=== PATIENT | female | born 1960 | race Caucasian/White ===

== ENCOUNTER 2020-06-17 10:55 | Outpatient (CLI) | payer OTHER ==
[2020-06-17 11:22] LABS: CALCIUM 9.6 mg/dL (8.5-10.3); CREATININE 0.9 mg/dL (0.4-1.0)
== END 2020-06-17 10:56 | disposition home or self-care (01) ==
LOC: LAB 10:55
PROVIDERS: ATTEND Obstetrics & Gynecology
DX: Z01.812 Encounter for preprocedural laboratory examination (principal); N95.0 Postmenopausal bleeding; Z20.828 Contact with and (suspected) exposure to other viral communicable diseases
CPT/HCPCS: 36415; 80048

== ENCOUNTER 2020-07-01 06:08 | Day surgery (SDC) | payer OTHER ==
[2020-07-01] MEDS ORDERED: LACTATED RINGERS 1,000 ML IV ONE ×2 (06:15→08:44)
--- NOTE | 2020-07-01 07:01 | ANESTHESIA ---
Pre-Anesthesia VS, & Labs - Diagnosis Abnormanl Uterine Bleeding - Procedure Hysteroscopy and D&C Vital Signs: Temp Pulse Resp BP Pulse Ox 36.6 C 102 H 20 131/86 H 98 07/01/20 06:23 07/01/20 06:23 07/01/20 06:23 07/01/20 06:23 07/01/20 06:23 Height: 5 ft 2 in Weight (kg): 72.8 kg Body Mass Index: 29.3 BMI Classification: Overweight - NPO >8 hours (2029) Last Fluid Intake: 2029 - Is Patient ?: No - Lab Results Current Lab Results: Laboratory Tests 07/01/20 06:30: POC Whole Bld Glucose 141 H Home Medications and Allergies Aspirin [Aspir-Low] 81 mg DAILY 04/24/16 Spironolactone 2 tab BID 04/24/16 lisinopriL [Lisinopril] 10 mg DAILY 04/24/16 metFORMIN [Glucophage] 500 mg BID 04/24/16 Atorvastatin [Lipitor] 40 mg 06/17/20 Insulin Glargine [Lantus Solostar] 28 unit DAILY 06/17/20 Allergies/Adverse Reactions: Allergies Allergy/AdvReac Type Severity Reaction Status Date / Time Tetanus Vaccines and Toxoid Allergy Unknown Verified 06/17/20 11:13 Anes History & Medical History - Medical History Cardiovascular: reports: Hypertension Musculoskeletal: reports: Fibromyalgia Endocrine/Autoimmune: reports: Type 2 diabetes Smoking Status: Never smoker - Surgical History General: Cholecystectomy Eyes Ears Nose Throat (EENT): Tonsil/Adenoidectomy Gynecologic: Tubal ligation Orthopedic: Knee replacement Exam General: Alert, Oriented x3, Cooperative, No acute distress Dental: WNL Mouth Openin Fingerbreadth Neck Mobility: Normal Mallampati classification: II Thyromental Distance: 4-6 cm Respiratory: Lungs clear, Normal breath sounds, No respiratory distress, No accessory muscle use Cardiovascular: Regular rate, Normal S1, Normal S2, No murmurs Abdomen: Normal bowel sounds, Soft, No tenderness, No hepatospenomegaly, No masses Extremities: No clubbing, No cyanosis, No edema, Normal pulses, No tenderness/swelling Neurological: Normal gait, Normal speech, Strength at 5/5 X4 ext, Normal tone, Sensation intact, Cranial nerves 3-12 NL, Reflexes 2+ Mental/Cognitive Status: Alert/Oriented X3, Normal for patient Cognitive Status: Within normal limits Plan Anesthesia Type: General Consent for Procedure(s) Verified and Reviewed: Yes Code Status: Attempt Resuscitation ASA classification: 2-Mild systemic disease Is this case an emergency?: No
[2020-07-01] MEDS ORDERED: PROPOFOL 200 MG/20 ML VIAL IVP ONE (07:09)
[2020-07-01] MEDS ORDERED: ONDANSETRON 4 MG/2 ML VIAL IVP ONE (07:09)
[2020-07-01] MEDS ORDERED: ePHEDrine 50 MG/ML VIAL IVP ONE (07:09)
[2020-07-01] MEDS ORDERED: fentaNYL 100 MCG/2 ML VIAL IVP ONE (07:09)
[2020-07-01] MEDS ORDERED: MIDAZOLAM 2 MG/2 ML VIAL IVP ONE (07:09)
[2020-07-01] MEDS ORDERED: DEXAMETHASONE 4 MG/ML VIAL IVP ONE (07:09)
[2020-07-01] MEDS ORDERED: SILVER NITRATE APPLICATOR TOP ONE (07:32)
[2020-07-01] MEDS ORDERED: LIDOCAINE 1%-EPI 1:100000 20 ML MDV ONE (07:32)
[2020-07-01] MEDS ORDERED: ONDANSETRON 4 MG/2 ML VIAL IVP PRN (07:56)
[2020-07-01] MEDS ORDERED: HYDROmorphone 0.5 MG/0.5 ML SYRINGE IVP PRN (07:56)
[2020-07-01] MEDS ORDERED: MORPHINE 2 MG/ML CARPUJECT IVP PRN (07:56)
[2020-07-01] MEDS ORDERED: METOCLOPRAMIDE 10 MG/2 ML VIAL IVP PRN (07:56)
[2020-07-01] MEDS ORDERED: ePHEDrine 50 MG/ML VIAL IVP PRN (07:56)
[2020-07-01] MEDS ORDERED: ACETAMINOPHEN 1,000 MG/100 ML 100 ML IV ONE ×3 (07:56→10:02)
[2020-07-01] MEDS ORDERED: fentaNYL 100 MCG/2 ML VIAL IVP PRN (07:56)
[2020-07-01] MEDS ORDERED: NALOXONE 0.4 MG/ML VIAL IVP PRN (07:56)
[2020-07-01] MEDS ORDERED: ATROPINE ABBOJECT 1 MG/10 ML SYRINGE IVP PRN (07:56)
[2020-07-01] MEDS ORDERED: LACTATED RINGERS 1,000 ML IV SCH (08:00)
[2020-07-01] MEDS ORDERED: LIDOCAINE 1%-EPI 1:100000 20 ML MDV SUBQ ONE (08:00)
--- NOTE | 2020-07-01 08:53 | OPERATIVE REPORT ---
Operative Report - General Planned Procedure: Diagnostic Hysteroscopy, dilation and curettage Pre-Op Diagnosis: Postmenopausal bleeding Procedure Performed: Diagnostic hysteroscopy, dilation and curettage Post Op Diagnosis: Postmenopausal bleeding, endocervical polyp, uterine septum - Procedure Note Primary Surgeon: Cherelle Secondary Surgeon: Krunal Anesthesia Provider: Otis Anesthesia Technique: General LMA, Local Pathology: 1. Endocervical polyp 2. Endometrial curettings IV Fluids (mL): 1,000 Estimated Blood Loss (mL): 3 Urine Output (mL): 200 Indications: 60 year old female post-endometrial ablation and postmenopausal, with postmenopausal bleeding. 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 She was counseled and consented for diagnostic hysteroscopy and dilation and curettage. Findings: Exam under anesthesia: Uterus anteverted with normal size, shape and contour. No adnexal masses. Operative: Endocervical polyp approximately 1cm, removed. Uterus sounded to 6cm. Hysteroscopy with uterine septum, at 1000 previously sounded, and 0400, sounded to 8cm. Thickened and pale endometrium from both sides. Curettage performed, repeat hysteroscopy with noted curettings only on the superior cavity. Myosure used for inferior cavity uterine sampling. Final curettage performed on inferior cavity. Complications: None - Other Other Information/Narrative: Operative Procedure: The patient was counseled and consented for the procedure. She was taken to the operating room where general LMA anesthesia was obtained without complication. A surgical time-out was performed. The patient was prepped and draped in the usual sterile fashion in yellow-fin stirrups. The bladder was drained with a straight catheter. A bivalve speculum was placed in the vagina. The cervical os was noted to have a 1cm endocervical polyp. The anterior lip of the cervix was grasped with a single toothed tenaculum. A local paracervical block using 1% lidocaine with epinephrine was placed at 2, 4, 8, and 10 o'clock positions of the cervix. The endocervical polyp was removed with ringed forceps and twisting off. The polyp was sent for pathology. The uterus was sounded to 6cm. The cervix was dilated to #5 Danielle dilator. The hysteroscope was inserted and noted uterine septum and erythema at 1000 cavity, and pale thickened tissue at 0400 cavity. The hysteroscopy was removed and the inferior cavity was sounded to 8cm. A medium sized curette was used to sample the uterus. The endometrial curettings were collected. The hysteroscope was inserted and noted 0400 uterine cavity was still pale and appeared untouched. Myosure was used to sample the inferior uterine cavity. The hysteroscope was removed and curettage performed on the inferior cavity. The curettings were collected. Final hysteroscopy showed appropriate abraded and erythematous endometrium from both superior and inferior uterine cavities. The tenaculum was removed from the cervix and the tenaculum sites were hemostatic with pressure. The speculum was removed from the vagina. All instruments were removed from the vagina. The patient tolerated the procedure well. She was awakened from anesthesia without complication and transferred to PACU in stable condition.
[2020-07-01] MEDS ORDERED: KETOROLAC 15 MG/ML VIAL IVP PRN (09:10)
[2020-07-01 09:35] VITALS: BP 118/67
--- NOTE | 2020-07-01 10:27 | ANESTHESIA POST OP EVALUATION ---
Anesthesia Post Eval - Post Anesthesia Eval Vitals: Last Vital Signs Temp 36.5 C 07/01/20 09:05 Pulse 86 07/01/20 09:34 Resp 16 07/01/20 09:34 BP 118/67 07/01/20 09:34 Pulse Ox 97 07/01/20 09:34 CV Function Including HR & BP: positive: Stable Pain Control: positive: Satisfactory (Had cramping. Added IV Ofirmev) Nausea & Vomiting: positive: Negative Mental Status: positive: Baseline Respiratory Status: Airway Patent Hydration Status: Satisfactory Anesthesia Complications: positive: None
== END 2020-07-01 06:09 | disposition home or self-care (01) ==
LOC: SDS 06:08
PROVIDERS: ATTEND Obstetrics & Gynecology
PROC: 0UDB7ZX Extraction of Endometrium, Via Natural or Artificial Opening, Diagnostic (ICD-10-PCS; 2020-07-01)
PROC: 0UJD8ZZ Inspection of Uterus and Cervix, Via Natural or Artificial Opening Endoscopic (ICD-10-PCS; 2020-07-01)
PROC: 0UBC7ZX Excision of Cervix, Via Natural or Artificial Opening, Diagnostic (ICD-10-PCS; principal; 2020-07-01 07:30)
DX: C54.1 Malignant neoplasm of endometrium (principal); N84.1 Polyp of cervix uteri; Q51.28 Other and unspecified doubling of uterus; Q51.3 Bicornate uterus; I10 Essential (primary) hypertension; E11.9 Type 2 diabetes mellitus without complications

== ENCOUNTER 2021-08-16 12:26 | Outpatient (CLI) | payer OTHER ==
[2021-08-16 13:36] VITALS: BP 127/83
--- NOTE | 2021-08-16 13:36 | SLEEP CARE CONSULTATION ---
Information from patient questionnaire entered by Rubina Wallace MA. I have reviewed and concur with the information entered by Rubina Wallace MA. This document represents the service I personally performed and the decisions made by , Janee Villalobos ARNP. History of Present Illness Service Date and Time: 08/16/2021 1226 Reason for Visit: New patient Chief Complaint: reports: Unrefreshed sleep (no always), Excessive daytime sleepiness, Fatigue Date of Onset: about a year Usual bedtime: 0001; anytime betw 10 PM to 2 AM Time it takes to fall asleep: 15 minutes Snores at night: No Observed to quit breathing while asleep: No Sleeps alone due to snoring: No Number of times waking at night: 1 Reasons for waking at night: reports: Pain, Bathroom, Other (leg cramps) Toss, Turn, or Twitch while sleeping: Yes Recalls having dreams: Yes Feels refreshed in the morning: No (50/50, sometimes refreshed) Morning headache: No Sleepy or fatigued during the day: Yes Ever fallen asleep while driving: No Takes day naps: Yes (daily for about 2 hours) Dreams during day naps: No Additional HPI information: I had the pleasure of seeing SMITH WAGNER today regarding the possibility of her having a sleep disorder. Her current complaints are excessive daytime sleepiness and fatigue. She states she has had four major surgeries in the last year. 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 She had a hysterectomy, bowel resection and appendectomy to remove cancer from her body. Since her surgeries she is sleeping more during the day. Normal activity like shopping is very fatiguing. She is taking naps a lot. Her kids and have told her she does not snore or have pauses in breathing while sleeping. She did not have any chemotherapy or radiation. It has been almost a year since her first surgery and she is still fatigued during the day and sleeping a lot. She wakes up a lot with a dry mouth and sometimes thinks she does snore. - Parasomnia Symptoms Ever been unable to move upon waking from sleep: Yes (occasional) Walks in sleep: No Talks in sleep: Yes Ever acted out dreams in sleep: No Ever felt weak in the knees when startled or emotional: Yes (has not fallen to ground) Bothered by creepy, crawly, restless sensations in legs: Yes (leg cramps; when she doesn't do normal walking) Problems with memory or concentration: No Subjective Initial Valliant Sleepiness Scale score: 14 (in 2020) Past Medical History Past Medical History: reports: Hypertension, Diabetes, Fibromyalgia, Other (cancer, uterus, appendix) Social History The patient's occupation is a [employer]. Patient is and lives in [place]. Have you smoked in the past 12 months: No Alcohol use: No Caffeine use: Yes Caffeine amount and frequency: 8 ounces soda daily Family History Family history of sleep disordered breathing: No Allergies and Home Medications Drug allergies reviewed: Yes (tetanus vaccines and toxiod) Home medication list reviewed: Yes Allergy and home medication list: Spironolactone 25 mg Metformin 500 mg Amitriptyline 75 mg Aspirin 81 mg Atorvastatin 40 mg Trulicity 0.75 mg, once a week Lisinopril 10 mg Lantus 30 units, nightly Omeprazole 20 mg Review of Systems Cardiovascular: reports: high blood pressure Neurological: reports: headaches Ear/Nose/Throat: reports: dry mouth/throat, tonsillectomy, wisdom teeth removed Endocrine: reports: sluggishness, excessive thirst Physical Exam Vital signs obtained and entered by: KIERRA Woods Blood Pressure: 127/83 (left) Cuff size: wrist Heart Rate: 100 (notified the provider of elevation in HR) O2 Saturation: 97 (with mask) Height: 5 ft 2 in Weight: 170 lb Weight change since last visit: Pt. states she is trying to loose weight Body Mass Index: 31.1 BMI Classification: Obese Mouth and throat: narrow oropharynx Soft palate: long Hard palate: normal Uvula: normal Uvula visualization: 50% Mallampati Class II Tongue: enlarged in size with teeth montero on lateral edges Tonsils: absent bilaterally (taken out but grew back) Neck: normal w/o lymphadenopathy or thyromegaly Heart: regular rate and rhythm Lungs: clear bilaterally Impression and Plan 1. Suspected Obstructive Sleep Apnea-Hypopnea Syndrome, as suggested by a history of unrefreshed sleep and excessive daytime sleepiness. She has a history of hypertension and diabetes. I recommend proceeding to polysomnography to confirm the diagnosis and to assess severity. If the patient has significant sleep disordered breathing, a manual CPAP titration study will also be performed to find the optimal treatment pressure. I informed the patient of what the sleep studies involve and after some discussion, obtained agreement to proceed. The pathophysiology of obstructive sleep apnea-hypopnea syndrome was discussed with the patient and health risks of cardiovascular and cerebrovascular disease if not treated. Risks of drowsy driving discussed in detail and patient advised to avoid long distance driving and to pulley maintainer at the first sign of drowsiness. Patient agreed to plan. * Schedule polysomnography +- manual CPAP titration study and return in 1-2 weeks after the study to discuss result and initiate therapy. * Avoid long distance driving or driving when feeling sleepy. * Avoid alcohol, sedative and muscle relaxant around bedtime. * Attempt to lose weight. * Review instructions provided by trained office staff on how to prepare for the sleep study. * Return for follow-up after sleep study completed. Counseling Topics: Weight loss health impact Visit Type: In Office Time Spent with Patient (minutes): 35 Provider Statement: I spent 100% of the Face to Face Visit with the patient with greater than 50% spent counseling the patient and coordination of care.
== END 2021-08-16 12:27 | disposition home or self-care (01) ==
LOC: SC 12:26
PROVIDERS: ATTEND Nurse Practitioner Family
DX: G47.8 Other sleep disorders (principal); G47.10 Hypersomnia, unspecified; E66.9 Obesity, unspecified; Z68.31 Body mass index [BMI] 31.0-31.9, adult
CPT/HCPCS: 99203; 99212

== ENCOUNTER 2022-11-01 16:01 | Outpatient (CLI) | payer OTHER | END 2022-11-01 16:02 | disposition critical access hospital (66) | LOC: EMS 16:01 | DX: R11.0 Nausea (principal); R42 Dizziness and giddiness; R06.02 Shortness of breath; R07.9 Chest pain, unspecified; E11.65 Type 2 diabetes mellitus with hyperglycemia; R00.0 Tachycardia, unspecified | CPT/HCPCS: A0425; A0427 ==

== ENCOUNTER 2022-11-01 16:22 | Emergency (ER) | payer OTHER ==
--- OUTSIDE RECORDS SUMMARY | 2022-11-01 16:47 | EXTERNAL MEDICAL SUMMARY RPT | Continuity of Care Document ---
:1960 Author Organization [facility] Address [address] [place] [address] Phone Care Team Providers Name Role Phone Unavailable Unavailable Unavailable Jm Bean Unavailable Unavailable Allergies and Intolerances date description facility type (no date) No Known Drug Allergies [facility] ([facility]) Encounters No information. Functional Status No information. Immunizations No information. Medications No information. Problems date description facility 2022-08-30 10:37 Malignant neoplasm of appendix [facility] 2022-08-30 10:37 Malignant neoplasm of endometrium [facility] 2022-08-30 10:37 Type 2 diabetes mellitus without compli cations [facility] 2022-08-30 10:37 Encounter for follow-up examination [facility] completed treatment for malignant [place] 2022-08-30 10:37 Personal history of other malignant rachael [facility] 2022-08-30 10:37 Personal history of malignant neoplasm of other [facility] [place] 2022-08-30 11:28 Malignant neoplasm of appendix [facility] 2022-08-30 11:28 Malignant neoplasm of endometrium [facility] 2022-08-30 11:28 Type 2 diabetes mellitus without compli cations [facility] 2022-08-30 11:28 Encounter for follow-up examination [facility] completed treatment for malignant [place] 2022-08-30 11:28 Personal history of other malignant rachael plasm of [facility] 2022-08-30 11:28 Personal history of malignant neoplasm of other [facility] [place] 2022-10-23 00:00 Headache [facility] Procedures date description facility 2022-10-23 00:00 Computed tomography of head or brain wi [facility] contrast 2022-10-23 00:00 Computed tomography angiography of head and [facility] neck vessels with contrast Results/Labs test date author facility value unit interpret ation Result panel 1 (unknown) (no date) (unknown) [place] [facility] Result panel 2 (unknown) (no date[facility] ([facility]) Result panel 3 (unknown) (no date) ([facility] Result panel 4 (unknown) (no date) (unknown[facility] Result panel 5 (unknown) (no date) (unknown[facility] Result panel 6 (unknown) (no date) (unknown[facility] Result panel 7 (unknown) (no date) (unknown[facility] Result panel 8 (unknown) (no date) (unknown[facility] Result panel 9 (unknown) (no date) (unknown[facility] Result panel 10 (unknown) (no date) (unknown[facility] Result panel 11 (unknown) (no date) (unknown[facility] Result panel 12 (unknown) (no date) (unknown[facility] Result panel 13 (unknown) (no date) (unknown[facility] Result panel 14 (unknown) (no date) (unknown[facility] Result panel 15 (unknown) (no date) (unknown[facility] Result panel 16 (unknown) (no date) (unknown[facility] Result panel 17 (unknown) (no date) (unknown[facility] Result panel 18 (unknown) (no date) (unknown[facility] Result panel 19 (unknown) (no date) (unknown[facility] Result panel 20 (unknown) (no date) (unknown[facility] Result panel 21 (unknown) (no date) (unknown[facility] Result panel 22 (unknown) (no date) (unknown[facility] Result panel 23 (unknown) (no date) (unknown[facility] Result panel 24 (unknown) (no date) (unknown[facility]) Result panel 25 (unknown) (no date) (unknown[facility] Result panel 26 (unknown) (no date) (unknown[facility] Result panel 27 (unknown) (no date) (unknown[facility] Result panel 28 (unknown) (no date) (unknown[facility] Result panel 29 (unknown) (no date) (unknown[facility] Result panel 30 (unknown) (no date) (unknown[facility] Result panel 31 (unknown) (no date) (unknown[facility] Result panel 32 (unknown) (no date) (unknown[facility]) Result panel 33 (unknown) (no date) (unknown[facility] Result panel 34 (unknown) (no date) (unknown[facility]) Result panel 35 (unknown) (no date) (unknown[facility] Result panel 36 (unknown) (no date) (unknown[facility] Result panel 37 (unknown) (no date) (unknown[facility] Result panel 38 (unknown) (no date) (unknown[facility] Result panel 39 (unknown) (no date) (unknown[facility] Result panel 40 (unknown) (no date) (unknown[facility] Result panel 41 (unknown) (no date) (unknown[facility] Result panel 42 (unknown) (no date) (unknown[facility] Result panel 43 (unknown) (no date) (unknown[facility] Result panel 44 (unknown) (no date) (unknown[facility] Result panel 45 (unknown) (no date) (unknown[facility] Result panel 46 (unknown) (no date) (unknown[facility] Result panel 47 (unknown) (no date) (unknown[facility]) Result panel 48 (unknown) (no date) (unknown[facility] Result panel 49 (unknown) (no date) (unknown[facility] Result panel 50 (unknown) (no date) (unknown[facility] Result panel 51 (unknown) (no date) (unknown[facility] Result panel 52 (unknown) (no date) (unknown[facility] Result panel 53 (unknown) (no date) (unknown[facility] Result panel 54 (unknown) (no date) (unknown[facility]) Result panel 55 (unknown) (no date) (unknown[facility] Result panel 56 (unknown) (no date) (unknown[facility]) Result panel 57 (unknown) (no date) (unknown[facility] Result panel 58 (unknown) (no date) (unknown[facility]) Result panel 59 (unknown) (no date) (unknown[facility] Result panel 60 (unknown) (no date) (unknown[facility]) Result panel 61 (unknown) (no date) (unknown[facility] Result panel 62 (unknown) (no date) (unknown[facility]) Result panel 63 (unknown) (no date) (unknown[facility] Result panel 64 (unknown) (no date) (unknown[facility]) Result panel 65 (unknown) (no date) (unknown[facility] Result panel 66 (unknown) (no date) (unknown[facility]) Result panel 67 (unknown) (no date) (unknown[facility] Result panel 68 (unknown) (no date) (unknown[facility]) Result panel 69 (unknown) (no date) (unknown[facility] Result panel 70 (unknown) (no date) (unknown[facility]) Result panel 71 (unknown) (no date) (unknown[facility] Result panel 72 (unknown) (no date) (unknown[facility]) Result panel 73 (unknown) (no date) (unknown[facility] Result panel 74 (unknown) (no date) (unknown[facility]) Result panel 75 (unknown) (no date) (unknown[facility] Result panel 76 (unknown) (no date) (unknown[facility]) Result panel 77 (unknown) (no date) (unknown[facility] Result panel 78 (unknown) (no date) (unknown[facility] Result panel 79 (unknown) (no date) (unknown[facility]) Result panel 80 (unknown) (no date) (unknown[facility] Result panel 81 (unknown) (no date) (unknown[facility] Result panel 82 (unknown) (no date) (unknown[facility] Result panel 83 (unknown) (no date) (unknown[facility]) Result panel 84 (unknown) (no date) (unknown[facility] Result panel 85 (unknown) (no date) (unknown[facility] Result panel 86 (unknown) (no date) (unknown[facility] Result panel 87 (unknown) (no date) (unknown[facility] Result panel 88 (unknown) (no date) (unknown[facility] Result panel 89 (unknown) (no date) (unknown[facility]) Result panel 90 (unknown) (no date) (unknown[facility] Result panel 91 (unknown) (no date) (unknown[facility] Result panel 92 (unknown) (no date) (unknown[facility] Result panel 93 (unknown) (no date) (unknown[facility]) Result panel 94 (unknown) (no date) (unknown[facility] Result panel 95 (unknown) (no date) (unknown[facility]) Result panel 96 (unknown) (no date) (unknown[facility]) Result panel 97 (unknown) (no date) (unknown[facility]) Result panel 98 (unknown) (no date) (unknown[facility]) Result panel 99 (unknown) (no date) (unknown[facility] Result panel 100 (unknown) (no date) (unknown[facility] Result panel 101 (unknown) (no date) (unknown[facility] Result panel 102 (unknown) (no date) (unknown[facility] Result panel 103 (unknown) (no date) (unknown[facility] Result panel 104 (unknown) (no date) (unknown[facility] Result panel 105 (unknown) (no date) (unknown[facility]) Result panel 106 (unknown) (no date) (unknown[facility] Result panel 107 (unknown) (no date) (unknown[facility]) Result panel 108 (unknown) (no date) (unknown[facility] Result panel 109 (unknown) (no date) (unknown[facility]) Result panel 110 (unknown) (no date) (unknown[facility]) Result panel 111 (unknown) (no date) (unknown[facility]) Result panel 112 (unknown) (no date) (unknown[facility] Result panel 113 (unknown) (no date) (unknown[facility] Result panel 114 (unknown) (no date) (unknown[facility]) Result panel 115 (unknown) (no date) (unknown[facility] Result panel 116 (unknown) (no date) (unknown[facility] Result panel 117 (unknown) (no date) (unknown[facility]) Result panel 118 (unknown) (no date) (unknown[facility] Result panel 119 (unknown) (no date) (unknown[facility] Result panel 120 (unknown) (no date) (unknown[facility] Result panel 121 (unknown) (no date) (unknown[facility]) Result panel 122 (unknown) (no date) (unknown[facility] Result panel 123 (unknown) (no date) (unknown[facility]) Result panel 124 (unknown) (no date) (unknown[facility]) Result panel 125 (unknown) (no date) (unknown[facility] Result panel 126 (unknown) (no date) (unknown[facility]) Result panel 127 (unknown) (no date) (unknown[facility]) Result panel 128 (unknown) (no date) (unknown[facility] Result panel 129 (unknown) (no date) (unknown[facility]) Result panel 130 (unknown) (no date) (unknown[facility] Result panel 131 (unknown) (no date) (unknown[facility]) Result panel 132 (unknown) (no date) (unknown[facility] Result panel 133 (unknown) (no date) (unknown[facility]) Result panel 134 (unknown) (no date) (unknown[facility]) Result panel 135 (unknown) (no date) (unknown[facility] Result panel 136 (unknown) (no date) (unknown[facility]) Result panel 137 (unknown) (no date) (unknown[facility]) Result panel 138 (unknown) (no date) (unknown[facility]) Result panel 139 (unknown) (no date) (unknown[facility] Result panel 140 (unknown) (no date) (unknown[facility]) Result panel 141 (unknown) (no date) (unknown[facility]) Result panel 142 (unknown) (no date) (unknown[facility]) Result panel 143 (unknown) (no date) (unknown[facility] Result panel 144 (unknown) (no date) (unknown[facility] Result panel 145 (unknown) (no date) (unknown[facility]) Result panel 146 (unknown) (no date) (unknown[facility]) Result panel 147 (unknown) (no date) (unknown[facility] Result panel 148 (unknown) (no date) (unknown[facility]) Result panel 149 (unknown) (no date) (unknown[facility]) Result panel 150 (unknown) (no date) (unknown[facility]) Result panel 151 (unknown) (no date) (unknown[facility]) Result panel 152 (unknown) (no date) (unknown[facility] Result panel 153 (unknown) (no date) (unknown[facility]) Result panel 154 (unknown) (no date) (unknown[facility] Result panel 155 (unknown) (no date) (unknown[facility] Result panel 156 (unknown) (no date) (unknown[facility]) Result panel 157 (unknown) (no date) (unknown[facility]) Result panel 158 (unknown) (no date) (unknown[facility] Result panel 159 (unknown) (no date) (unknown[facility] Result panel 160 (unknown) (no date) (unknown[facility]) Result panel 161 (unknown) (no date) (unknown[facility]) Result panel 162 (unknown) (no date) (unknown[facility]) Result panel 163 (unknown) (no date) (unknown[facility] Result panel 164 (unknown) (no date) (unknown[facility]) Result panel 165 (unknown) (no date) (unknown[facility] Result panel 166 (unknown) (no date) (unknown[facility]) Result panel 167 (unknown) (no date) (unknown[facility] Result panel 168 (unknown) (no date) (unknown[facility] Result panel 169 (unknown) (no date) (unknown[facility]) Result panel 170 (unknown) (no date) (unknown[facility] Result panel 171 (unknown) (no date) (unknown[facility] Result panel 172 (unknown) (no date) (unknown[facility] Result panel 173 (unknown) (no date) (unknown[facility] Result panel 174 (unknown) (no date) (unknown[facility] Result panel 175 (unknown) (no date) (unknown[facility] Result panel 176 (unknown) (no date) (unknown[facility] Result panel 177 (unknown) (no date) (unknown[facility]) Result panel 178 (unknown) (no date) (unknown[facility] Result panel 179 (unknown) (no date) (unknown[facility] Result panel 180 (unknown) (no date) (unknown[facility] Result panel 181 (unknown) (no date) (unknown[facility] Result panel 182 (unknown) (no date) (unknown[facility] Result panel 183 (unknown) (no date) (unknown[facility] Result panel 184 (unknown) (no date) (unknown[facility] Result panel 185 (unknown) (no date) (unknown[facility]) Result panel 186 (unknown) (no date) (unknown[facility] Result panel 187 (unknown) (no date) (unknown[facility] Result panel 188 (unknown) (no date) (unknown[facility] Result panel 189 (unknown) (no date) (unknown[facility] Result panel 190 (unknown) (no date) (unknown[facility] Result panel 191 (unknown) (no date) (unknown[facility]) Result panel 192 (unknown) (no date) (unknown[facility] Result panel 193 (unknown) (no date) (unknown[facility]) Result panel 194 (unknown) (no date) (unknown[facility] Result panel 195 (unknown) (no date) (unknown[facility]) Result panel 196 (unknown) (no date) (unknown[facility] Result panel 197 (unknown) (no date) (unknown[facility] Result panel 198 (unknown) (no date) (unknown[facility] Result panel 199 (unknown) (no date) (unknown[facility] Result panel 200 (unknown) (no date) (unknown[facility] Result panel 201 (unknown) (no date) (unknown[facility] Result panel 202 (unknown) (no date) (unknown[facility] Result panel 203 (unknown) (no date) (unknown[facility] Result panel 204 (unknown) (no date) (unknown[facility] Result panel 205 (unknown) (no date) (unknown[facility] Result panel 206 (unknown) (no date) (unknown[facility]) Result panel 207 (unknown) (no date) (unknown[facility] Result panel 208 (unknown) (no date) (unknown[facility] Result panel 209 (unknown) (no date) (unknown[facility]) Result panel 210 (unknown) (no date) (unknown[facility] Result panel 211 (unknown) (no date) (unknown[facility] Result panel 212 (unknown) (no date) (unknown[facility] Result panel 213 (unknown) (no date) (unknown[facility] Result panel 214 (unknown) (no date) (unknown[facility]) Result panel 215 (unknown) (no date) (unknown[facility] Result panel 216 (unknown) (no date) (unknown[facility] Result panel 217 (unknown) (no date) (unknown[facility] Result panel 218 (unknown) (no date) (unknown[facility] Result panel 219 (unknown) (no date) (unknown) [facility] Result panel 220 (unknown) (no date) (unknown) [facility]) Result panel 221 (unknown) (no date) (unknown) [facility] Result panel 222 (unknown) (no date) (unknown) [facility]) Result panel 223 (unknown) (no date) (unknown) [facility]) Result panel 224 (unknown) (no date) (unknown) [facility]) Result panel 225 (unknown) (no date) (unknown) [facility]) Result panel 226 (unknown) (no date) (unknown) [facility]) Result panel 227 (unknown) (no date) (unknown) [facility]) Result panel 228 (unknown) (no date) (unknown) [facility]) Result panel 229 (unknown) (no date) (unknown) [facility]) Result panel 230 (unknown) (no date) (unknown) [facility]) Result panel 231 (unknown) (no date) (unknown) [facility] Result panel 232 (unknown) (no date) (unknown) [facility]) Result panel 233 (unknown) (no date) (unknown) [facility]) Result panel 234 (unknown) (no date) (unknown) [facility]) Result panel 235 (unknown) (no date) (unknown) [facility]) Result panel 236 (unknown) (no date) (unknown) [facility]) Result panel 237 (unknown) (no date) (unknown) [facility]) Result panel 238 (unknown) (no date) (unknown) [facility]) Result panel 239 (unknown) (no date) (unknown) [facility]) Result panel 240 (unknown) (no date) (unknown) [facility]) Result panel 241 (unknown) (no date) (unknown) [facility]) Result panel 242 (unknown) (no date) (unknown) [facility]) Result panel 243 (unknown) (no date) (unknown) [facility]) Result panel 244 (unknown) (no date) (unknown) [facility]) Result panel 245 (unknown) (no date) (unknown) [facility]) Result panel 246 (unknown) (no date) (unknown) [facility]) Result panel 247 (unknown) (no date) (unknown) [facility]) Result panel 248 (unknown) (no date) (unknown) [facility]) Result panel 249 (unknown) (no date) (unknown) [facility]) Result panel 250 (unknown) (no date) (unknown) [facility]) Result panel 251 (unknown) (no date) (unknown) [facility]) Result panel 252 (unknown) (no date) (unknown) [facility]) Result panel 253 (unknown) (no date) (unknown) [facility]) Result panel 254 (unknown) (no date) (unknown) [facility]) Result panel 255 (unknown) (no date) (unknown) [facility]) Result panel 256 (unknown) (no date) (unknown) [facility]) Result panel 257 (unknown) (no date) (unknown) [facility]) Result panel 258 (unknown) (no date) (unknown) [facility]) Result panel 259 (unknown) (no date) (unknown) [facility]) Result panel 260 (unknown) (no date) (unknown) [facility]) Result panel 261 (unknown) (no date) (unknown) [facility]) Result panel 262 (unknown) (no date) (unknown) [facility]) Result panel 263 (unknown) (no date) (unknown) [facility]) Result panel 264 (unknown) (no date) (unknown) [facility]) Result panel 265 (unknown) (no date) (unknown) [facility]) Result panel 266 (unknown) (no date) (unknown) [facility]) Result panel 267 (unknown) (no date) (unknown) [facility]) Result panel 268 (unknown) (no date) (unknown) [facility]) Result panel 269 (unknown) (no date) (unknown) [facility]) Result panel 270 (unknown) (no date) (unknown) [facility]) Result panel 271 (unknown) (no date) (unknown) [facility]) Result panel 272 (unknown) (no date) (unknown) [facility]) Result panel 273 (unknown) (no date) (unknown) [facility]) Result panel 274 (unknown) (no date) (unknown) [facility]) Result panel 275 (unknown) (no date) (unknown) [facility]) Result panel 276 (unknown) (no date) (unknown) [facility]) Result panel 277 (unknown) (no date) (unknown) [facility]) Result panel 278 (unknown) (no date) (unknown) [facility]) Result panel 279 (unknown) (no date) (unknown) [facility]) Result panel 280 (unknown) (no date) (unknown) [facility]) Result panel 281 (unknown) (no date) (unknown) [facility]) Result panel 282 (unknown) (no date) (unknown) [facility]) Result panel 283 (unknown) (no date) (unknown) [facility]) Result panel 284 (unknown) (no date) (unknown) [facility]) Result panel 285 (unknown) (no date) (unknown) [facility]) Result panel 286 (unknown) (no date) (unknown) [facility]) Result panel 287 (unknown) (no date) (unknown) [facility]) Result panel 288 (unknown) (no date) (unknown) [facility]) Result panel 289 (unknown) (no date) (unknown) [facility]) Result panel 290 (unknown) (no date) (unknown) [facility]) Result panel 291 (unknown) (no date) (unknown) [facility]) Result panel 292 (unknown) (no date) (unknown) [facility]) Result panel 293 (unknown) (no date) (unknown) [facility]) Result panel 294 (unknown) (no date) (unknown) [facility]) Result panel 295 (unknown) (no date) (unknown) [facility]) Result panel 296 (unknown) (no date) (unknown) [facility]) Result panel 297 (unknown) (no date) (unknown) [facility]) Result panel 298 (unknown) (no date) (unknown) [facility]) Result panel 299 (unknown) (no date) (unknown) [facility]) Result panel 300 (unknown) (no date) (unknown) [facility]) Result panel 301 (unknown) (no date) (unknown) [facility]) Result panel 302 (unknown) (no date) (unknown) [facility]) Result panel 303 (unknown) (no date) (unknown) [facility]) Result panel 304 (unknown) (no date) (unknown) [facility]) Result panel 305 (unknown) (no date) (unknown) [facility]) Result panel 306 (unknown) (no date) (unknown) [facility]) Result panel 307 (unknown) (no date) (unknown) [facility]) Result panel 308 (unknown) (no date) (unknown) [facility]) Result panel 309 (unknown) (no date) (unknown) [facility]) Result panel 310 (unknown) (no date) (unknown) [facility]) Result panel 311 (unknown) (no date) (unknown) [facility]) Result panel 312 (unknown) (no date) (unknown) [facility]) Result panel 313 (unknown) (no date) (unknown) [facility]) Result panel 314 (unknown) (no date) (unknown) [facility]) Result panel 315 (unknown) (no date) (unknown) [facility]) Result panel 316 (unknown) (no date) (unknown) [facility]) Result panel 317 (unknown) (no date) (unknown) [facility]) Result panel 318 (unknown) (no date) (unknown) [facility]) Result panel 319 (unknown) (no date) (unknown) [facility]) Result panel 320 (unknown) (no date) (unknown) [facility]) Result panel 321 (unknown) (no date) (unknown) [facility]) Result panel 322 (unknown) (no date) (unknown) [facility]) Result panel 323 (unknown) (no date) (unknown) [facility]) Result panel 324 (unknown) (no date) (unknown) [facility]) Result panel 325 (unknown) (no date) (unknown) [facility]) Result panel 326 (unknown) (no date) (unknown) [facility]) Result panel 327 (unknown) (no date) (unknown) [facility]) Result panel 328 (unknown) (no date) (unknown) [facility]) Result panel 329 (unknown) (no date) (unknown) [facility]) Result panel 330 (unknown) (no date) (unknown) [facility]) Result panel 331 (unknown) (no date) (unknown) [facility]) Result panel 332 (unknown) (no date) (unknown) [facility]) Result panel 333 (unknown) (no date) (unknown) [facility]) Result panel 334 (unknown) (no date) (unknown) [facility]) Result panel 335 (unknown) (no date) (unknown) [facility]) Result panel 336 (unknown) (no date) (unknown) [facility]) Result panel 337 (unknown) (no date) (unknown) [facility]) Result panel 338 (unknown) (no date) (unknown) [facility]) Result panel 339 (unknown) (no date) (unknown) [facility]) Result panel 340 (unknown) (no date) (unknown) [facility]) Result panel 341 (unknown) (no date) (unknown) [facility]) Result panel 342 (unknown) (no date) (unknown) [facility]) Result panel 343 (unknown) (no date) (unknown) [facility]) Result panel 344 (unknown) (no date) (unknown) [facility]) Result panel 345 (unknown) (no date) (unknown) [facility]) Result panel 346 (unknown) (no date) (unknown) [facility]) Result panel 347 (unknown) (no date) (unknown) [facility]) Result panel 348 (unknown) (no date) (unknown) [facility]) Result panel 349 (unknown) (no date) (unknown) [facility]) Result panel 350 (unknown) (no date) (unknown) [facility]) Result panel 351 (unknown) (no date) (unknown) [facility]) Result panel 352 (unknown) (no date) (unknown) [facility]) Result panel 353 (unknown) (no date) (unknown) [facility]) Result panel 354 (unknown) (no date) (unknown) [facility]) Result panel 355 (unknown) (no date) (unknown) [facility]) Result panel 356 (unknown) (no date) (unknown) [facility]) Result panel 357 (unknown) (no date) (unknown) [facility]) Result panel 358 (unknown) (no date) (unknown) [facility]) Result panel 359 (unknown) (no date) (unknown) [facility]) Result panel 360 (unknown) (no date) (unknown) [facility]) Result panel 361 (unknown) (no date) (unknown) (unknown) (no value) (units 128 51-2 unknown) (unknown) (no date) (unknown) (unknown) (no value) (units 772 02-0 unknown) (unknown) (no date) (unknown) (unknown) (no value) (units (un known) unknown) (unknown) (no date) (unknown) (unknown) (no value) (units (un known) unknown) (unknown) (no date) (unknown) (unknown) . (units ([facility] own) unknown) (unknown) (no date) (unknown) (unknown) . (units 28178 -2 unknown) (unknown) (no date) (unknown) (unknown) 0.3 g/dl (unkn own) (unknown) (no date) (unknown) (unknown) 0.3 g/dl 2865- 4 (unknown) (no date) (unknown) (unknown) 0.9 (units (unkn own) unknown) (unknown) (no date) (unknown) (unknown) 0.9 (units 1759- 0 unknown) (unknown) (no date) (unknown) (unknown) 1.1 g/dl (unkn own) (unknown) (no date) (unknown) (unknown) 1.1 g/dl 2868- 8 (unknown) (no date) (unknown) (unknown) 1.3 g/dl (un[facility] own) (unknown) (no date) (unknown) (unknown) 1.3 g/dl 2871- 2 (unknown) (no date) (unknown) (unknown) 1.4 g/dl (unkn own) (unknown) (no date) (unknown) (unknown) 1.4 g/dl 2874- 6 (unknown) (no date) (unknown) (unknown) 3.7 g/dl (unkn own) (unknown) (no date) (unknown) (unknown) 3.7 g/dl 2862- 1 (unknown) (no date) (unknown) (unknown) 4.1 g/dl (unkn own) (unknown) (no date) (unknown) (unknown) 4.1 g/dl 97131 -0 (unknown) (no date) (unknown) (unknown) 7.8 g/dl (unkn own) (unknown) (no date) (unknown) (unknown) 7.8 g/dl 2885- 2 (unknown) (no date) (unknown) (unknown) Not Observed g/dl ( unknown) (unknown) (no date) (unknown) (unknown) Not Observed g/dl 3 3358-3 Result panel 362 (unknown) (no date) (unknown) (unknown) 0.8 % ([facility] own) (unknown) (no date) (unknown) (unknown) 100 /ul ([facility] own) (unknown) (no date) (unknown) (unknown) 11.7 x10 3/ul (unkn own) (unknown) (no date) (unknown) (unknown) 12.3 g/dl (un[facility] own) (unknown) (no date) (unknown) (unknown) 14.1 % (un[facility] own) (unknown) (no date) (unknown) (unknown) 26.3 pg (unkn own) (unknown) (no date) (unknown) (unknown) 30.8 % ([facility] own) (unknown) (no date) (unknown) (unknown) 316 x10 3/ul ([facility] own) (unknown) (no date) (unknown) (unknown) 33.6 % (un[facility] own) (unknown) (no date) (unknown) (unknown) 36.6 % (unkn own) (unknown) (no date) (unknown) (unknown) 3600 /ul (unkn own) (unknown) (no date) (unknown) (unknown) 4.2 % ([facility]kn own) (unknown) (no date) (unknown) (unknown) 4.4 % (un[facility] own) (unknown) (no date) (unknown) (unknown) 4.67 x10 6/ul (unkn own) (unknown) (no date) (unknown) (unknown) 500 /ul (unkn own) (unknown) (no date) (unknown) (unknown) 500 /ul (unkn own) (unknown) (no date) (unknown) (unknown) 59.8 % (unkn own) (unknown) (no date) (unknown) (unknown) 7000 /ul (unkn own) (unknown) (no date) (unknown) (unknown) 78.3 fl ([facility] own) Result panel 363 (unknown) (no date) (unknown) (unknown) > 60 ml/min (un[facility] own) (unknown) (no date) (unknown) (unknown) > 60 ml/min (un[facility] own) (unknown) (no date) (unknown) (unknown) 0.5 mg/dl (un[facility] own) (unknown) (no date) (unknown) (unknown) 0.83 mg/dl ([facility] own) (unknown) (no date) (unknown) (unknown) 1.3 (units unknown) (unknown) (unknown) (no date) (unknown) (unknown) 10.0 mg/dl (un[facility] own) (unknown) (no date) (unknown) (unknown) 103 mmol/l ([facility] own) (unknown) (no date) (unknown) (unknown) 13 mg/dl ([facility] own) (unknown) (no date) (unknown) (unknown) 141 mmol/l (un[facility] own) (unknown) (no date) (unknown) (unknown) 15.7 (units unknown) (unknown) (unknown) (no date) (unknown) (unknown) 176 u/l (un[facility] own) (unknown) (no date) (unknown) (unknown) 18 iu/l ([facility] own) (unknown) (no date) (unknown) (unknown) 20 iu/l (un[facility] own) (unknown) (no date) (unknown) (unknown) 20 mmol/l (un[facility] own) (unknown) (no date) (unknown) (unknown) 225 mg/dl ([facility] own) (unknown) (no date) (unknown) (unknown) 225 mg/dl (un[facility] own) (unknown) (no date) (unknown) (unknown) 3.6 g/dl (unkn own) (unknown) (no date) (unknown) (unknown) 3.6 mmol/l (un[facility] own) (unknown) (no date) (unknown) (unknown) 4.6 g/dl (un[facility] own) (unknown) (no date) (unknown) (unknown) 8.2 g/dl ([facility] own) Result panel 364 (unknown) (no date) (unknown) (unknown) 0.3 g/dl (unkn own) (unknown) (no date) (unknown) (unknown) 0.9 (units (unkn own) unknown) (unknown) (no date) (unknown) (unknown) 1.1 g/dl (unkn own) (unknown) (no date) (unknown) (unknown) 1.3 g/dl (unkn own) (unknown) (no date) (unknown) (unknown) 1.4 g/dl (unkn own) (unknown) (no date) (unknown) (unknown) 3.7 g/dl (unkn own) (unknown) (no date) (unknown) (unknown) 4.1 g/dl (unkn own) (unknown) (no date) (unknown) (unknown) 7.8 g/dl (un[facility] own) (unknown) (no date) (unknown) (unknown) Comment (units (unkn own) unknown) (unknown) (no date) (unknown) (unknown) Comment (units (unkn own) unknown) (unknown) (no date) (unknown) (unknown) Comment (units (unkn own) unknown) (unknown) (no date) (unknown) (unknown) Not Observed g/dl ( unknown) Result panel 365 (unknown) (no date) (unknown) (unknown) 0.3 g/dl (unkn own) (unknown) (no date) (unknown) (unknown) 0.9 (units (unkn own) unknown) (unknown) (no date) (unknown) (unknown) 1.1 g/dl (unkn own) (unknown) (no date) (unknown) (unknown) 1.3 g/dl (unkn own) (unknown) (no date) (unknown) (unknown) 1.4 g/dl (unkn own) (unknown) (no date) (unknown) (unknown) 3.7 g/dl (unkn own) (unknown) (no date) (unknown) (unknown) 4.1 g/dl (unkn own) (unknown) (no date) (unknown) (unknown) 7.8 g/dl (unkn own) (unknown) (no date) (unknown) (unknown) Comment (units (unkn own) unknown) (unknown) (no date) (unknown) (unknown) Comment (units (unkn own) unknown) (unknown) (no date) (unknown) (unknown) Comment (units (unkn own) unknown) (unknown) (no date) (unknown) (unknown) Not Observed g/dl ( unknown) Result panel 366 (unknown) (no (unknown) (unknown) (no value) (units (unk nown) date) unknown) (unknown) (no (unknown) (unknown) (1) Elevated total (units (unknown) date) protein unknown) (unknown) (no (unknown) (unknown) (2) 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 (unknown) (no (unknown) (unknown) (3) Endometrial (units (unknown) date) adenocarcinoma unknown) (unknown) (no (unknown) (unknown) (Trulicity) (units (un known) date) unknown) (unknown) (no (unknown) (unknown) - Date of Visit (units (unknown) date) unknown) (unknown) (no (unknown) (unknown) - Imaging (units (unkn own) date) unknown) (unknown) (no (unknown) (unknown) - Labs (units (unkno wn) date) unknown) (unknown) (no (unknown) (unknown) - Patient (units (unkn own) date) Self-Reported unknown) Symptoms (unknown) (no (unknown) (unknown) [id number] (units (unkno wn) date) unknown) (unknown) (no (unknown) (unknown) 07:59 15:59 23:59 (units (unknown) date) unknown) (unknown) (no (unknown) (unknown) 09/03/22 09/03/22 (units (unknown) date) 09/03/22 unknown) (unknown) (no (unknown) (unknown) 09/03/22 16:42 (units (unknown) date) 97.1 F L 72 18 unknown) 146/75 H 99 (unknown) (no (unknown) (unknown) 09/03/22 (units (unkno wn) date) unknown) (unknown) (no (unknown) (unknown) 08/2020 and was (units (unknown) date) diagnosed with unknown) endometrial low-grade endometrioid (unknown) (no (unknown) (unknown) 23:59 (units (unkno wn) date) unknown) (unknown) (no (unknown) (unknown) ALT 20 IU/L (<35) (units (unknown) date) 08/27/22 13:23 unknown) (unknown) (no (unknown) (unknown) AST 18 IU/L (units (un known) date) (14-36) 08/27/22 unknown) 13:23 (unknown) (no (unknown) (unknown) Abdomen: Soft and (units (unknown) date) nontender. Mild unknown) middle lower abdomen pain. (unknown) (no (unknown) (unknown) Additional (units (unk nown) date) studies: unknown) (unknown) (no (unknown) (unknown) Age/Sex: 62 / F (units (unknown) date) unknown) (unknown) (no (unknown) (unknown) Albumin 3.7 g/dL (units (unknown) date) (2.9-4.4) 08/27/22 unknown) 13:23 (unknown) (no (unknown) (unknown) Albumin 4.6 g/dL (units (unknown) date) (3.5-5.0) 08/27/22 unknown) 13:23 (unknown) (no (unknown) (unknown) Albumin/Globulin (units (unknown) date) Ratio 0.9 (0.7-1.7) unknown) 08/27/22 13:23 (unknown) (no (unknown) (unknown) Albumin/Globulin (units (unknown) date) Ratio 1.3 (1.0-2.8) unknown) 08/27/22 13:23 (unknown) (no (unknown) (unknown) Alkaline (units (unkno wn) date) Phosphatase 176 U/L unknown) (38-126) H 08/27/22 13:23 (unknown) (no (unknown) (unknown) Allergies (units (unkn own) date) unknown) (unknown) (no (unknown) (unknown) Allergy/AdvReac (units (unknown) date) Type Severity unknown) Reaction Status Date / Time (unknown) (no (unknown) (unknown) [id number] (units (unknown) date) 0.3 g/dL (0.0-0.4) unknown) 08/27/22 13:23 (unknown) (no (unknown) (unknown) [id number] (units (unknown) date) 1.1 g/dL (0.4-1.0) unknown) H 08/27/22 13:23 (unknown) (no (unknown) (unknown) Assessment and (units (unknown) date) Plan unknown) (unknown) (no (unknown) (unknown) BUN 13 mg/dL (units (u nknown) date) (7-17) 08/27/22 unknown) 13:23 (unknown) (no (unknown) (unknown) BUN/Creatinine (units (unknown) date) Ratio 15.7 (6-22) unknown) 08/27/22 13:23 (unknown) (no (unknown) (unknown) Baso # (Auto) 100 (units (unknown) date) /uL (0-100) unknown) 08/27/22 13:23 (unknown) (no (unknown) (unknown) Baso % (Auto) 0.8 (units (unknown) date) % (0-2) 08/27/22 unknown) 13:23 (unknown) (no (unknown) (unknown) [id number] (units (unknown) date) 1.3 g/dL (0.7-1.3) unknown) 08/27/22 13:23 (unknown) (no (unknown) (unknown) CBC, CMP, SPEP (units (unknown) date) rflx IFX in one unknown) month (unknown) (no (unknown) (unknown) CT of the abdomen (units (unknown) date) and pelvis on unknown) 10/13/2020 showed no evidence of recurrence or (unknown) (no (unknown) (unknown) Calcium 10.0 mg/dL (units (unknown) date) (8.4-10.2) 08/27/22 unknown) 13:23 (unknown) (no (unknown) (unknown) Carbon Dioxide 20 (units (unknown) date) mmol/L (22-32) L unknown) 08/27/22 13:23 (unknown) (no (unknown) (unknown) Carcinoembryonic (units (unknown) date) Ag 1.3 ng/mL unknown) (0.1-3.0) 07/24/22 11:39 (unknown) (no (unknown) (unknown) Cardiovascular: (units (unknown) date) RRR, S1 and S2 unknown) normal, no M/G/R. No edema of lower extremities. (unknown) (no (unknown) (unknown) Nguyen Tracey is a (units (unknown) date) 61 year old female. 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 (unknown) (no (unknown) (unknown) Continue active (units (unknown) date) surveillance. unknown) (unknown) (no (unknown) (unknown) Creatinine 0.83 (units (unknown) date) mg/dL (0.52-1.04) unknown) 08/27/22 13:23 (unknown) (no (unknown) (unknown) : 1960 (units (unknown) date) Acct:[id number] unknown) (unknown) (no (unknown) (unknown) Date of Service: (units (unknown) date) 09/03/22 unknown) (unknown) (no (unknown) (unknown) Date of visit: (units (unknown) date) 09/03/22 unknown) (unknown) (no (unknown) (unknown) Dr. Rob Medina (units (unknown) date) evaluated the unknown) patient and performed C-scope on 12/21/2021, (unknown) (no (unknown) (unknown) ECOG 1 (units (unkno wn) date) unknown) (unknown) (no (unknown) (unknown) Eos # (Auto) 500 (units (unknown) date) /uL (0-450) H unknown) 08/27/22 13:23 (unknown) (no (unknown) (unknown) Eos % (Auto) 4.2 % (units (unknown) date) (2-4) H 08/27/22 unknown) 13:23 (unknown) (no (unknown) (unknown) Estimated GFR > 60 (units (unknown) date) mL/min (>60) unknown) 08/27/22 13:23 (unknown) (no (unknown) (unknown) Exam (units (unkno wn) date) unknown) (unknown) (no (unknown) (unknown) Gamma Glob/Tot (units (unknown) date) Protein 4.1 g/dL unknown) (2.2-3.9) H 08/27/22 13:23 (unknown) (no (unknown) (unknown) Gamma Globulins (units (unknown) date) 1.4 g/dL (0.4-1.8) unknown) 08/27/22 13:23 (unknown) (no (unknown) (unknown) General surgery (units (unknown) date) Dr. Boyd unknown) performed colonoscopy that was incomplete due to (unknown) (no (unknown) (unknown) Globulin 3.6 g/dL (units (unknown) date) (1.7-4.1) 08/27/22 unknown) 13:23 (unknown) (no (unknown) (unknown) Glucose 225 mg/dL (units (unknown) date) (80-110) H 08/27/22 unknown) 13:23 (unknown) (no (unknown) (unknown) HEENT: NCAT, EOMI, (units (unknown) date) PERRLA. Anicteric unknown) sclera. (unknown) (no (unknown) (unknown) Hct 36.6 % (36-46) (units (unknown) date) 08/27/22 13:23 unknown) (unknown) (no (unknown) (unknown) Hematology and (units (unknown) date) Oncology HPI: unknown) (unknown) (no (unknown) (unknown) Hgb 12.3 g/dL (units ( unknown) date) (12.0-16.0) unknown) 08/27/22 13:23 (unknown) (no (unknown) (unknown) Home Medications (units (unknown) date) and Allergies unknown) (unknown) (no (unknown) (unknown) Home Medications (units (unknown) date) unknown) (unknown) (no (unknown) (unknown) STEPHNAIE M-Andre Not (units (unknown) date) observed g/dL (Not unknown) Observed) 08/27/22 13:23 (unknown) (no (unknown) (unknown) In addition, (units (u nknown) date) pathology also unknown) reported low-grade appendiceal mucinous neoplasm (unknown) (no (unknown) (unknown) Intake and Output (units (unknown) date) unknown) (unknown) (no (unknown) (unknown) Interval history: (units (unknown) date) unknown) (unknown) (no (unknown) (unknown) [facility] (units (unknown) date) [address] unknown) [place] [address] (unknown) (no (unknown) (unknown) Laboratory Last (units (unknown) date) Values unknown) (unknown) (no (unknown) (unknown) Lymph # (Auto) (units (unknown) date) 3600 /uL unknown) (9624-4224) 08/27/22 13:23 (unknown) (no (unknown) (unknown) Lymph % (Auto) (units (unknown) date) 30.8 % (25-40) unknown) 08/27/22 13:23 (unknown) (no (unknown) (unknown) Lymphatic: no (units ( unknown) date) palpable palpable unknown) lymph nodes in the neck, axillae or groins (unknown) (no (unknown) (unknown) MCH 26.3 PG (units (un known) date) (26-34) 08/27/22 unknown) 13:23 (unknown) (no (unknown) (unknown) MCHC 33.6 % (units (un known) date) (30-36) 08/27/22 unknown) 13:23 (unknown) (no (unknown) (unknown) MCV 78.3 fL (units (un known) date) (80-100) L 08/27/22 unknown) 13:23 (unknown) (no (unknown) (unknown) Medication (units (unk nown) date) Instructions unknown) Recorded Confirmed Type (unknown) (no (unknown) (unknown) Letcher # (Auto) 500 (units (unknown) date) /uL (0-900) unknown) 08/27/22 13:23 (unknown) (no (unknown) (unknown) Letcher % (Auto) 4.4 (units (unknown) date) % (3-14) 08/27/22 unknown) 13:23 (unknown) (no (unknown) (unknown) Scott, F. The (units (u nknown) date) patient has been unknown) getting clinic visits and CT scan every 4 months. (unknown) (no (unknown) (unknown) Scott. Surgical (units (unknown) date) pathology showed unknown) endometrial endometrioid adenocarcinoma with (unknown) (no (unknown) (unknown) Musculoskeletal: (units (unknown) date) normal gait and unknown) station (unknown) (no (unknown) (unknown) Narrative: (units (unk nown) date) unknown) (unknown) (no (unknown) (unknown) Neck: Supple and (units (unknown) date) symmetrical, no unknown) palpable masses. No palpable thyromegaly. (unknown) (no (unknown) (unknown) Neurological: AOx3, (units (unknown) date) CN II-XII grossly unknown) intact. No focal motor or sensory deficit. (unknown) (no (unknown) (unknown) Neut # (Auto) 7000 (units (unknown) date) /uL (1855-6581) unknown) 08/27/22 13:23 (unknown) (no (unknown) (unknown) Neut % (Auto) 59.8 (units (unknown) date) % (50-75) 08/27/22 unknown) 13:23 (unknown) (no (unknown) (unknown) No Known Drug (units ( unknown) date) Allergies Allergy unknown) Verified 07/12/22 13:00 (unknown) (no (unknown) (unknown) Now patient said (units (unknown) date) that she is doing unknown) quite well except a lot of family situations (unknown) (no (unknown) (unknown) On 07/11/2022, (units (unknown) date) patient was unknown) complaining left lower quadrant abdominal pain and (unknown) (no (unknown) (unknown) On 07/12/2022, (units (unknown) date) aNno Tucker unknown) performed colonoscopy. The colonoscopy showed (unknown) (no (unknown) (unknown) On 09/06/2020 (units ( unknown) date) patient underwent unknown) robotic total hysterectomy with bilateral (unknown) (no (unknown) (unknown) On 12/15/2020, (units (unknown) date) Maulik Dennison unknown) performed laparoscopic partial cecectomy due (unknown) (no (unknown) (unknown) On 01/09/2022, (units (unknown) date) Rob Medina unknown) performed laparoscopic assisted right (unknown) (no (unknown) (unknown) On 01/23/2022, she (units (unknown) date) was evaluated at unknown) the clinic. At that time, patient was (unknown) (no (unknown) (unknown) On 05/18/2021, (units ( unknown) date) patient underwent unknown) CT abdomen and pelvis with contrast that showed (unknown) (no (unknown) (unknown) On 06/21/2021, (units ( unknown) date) patient underwent unknown) liver MR that showed 1.4 cm non-enhancing focus (unknown) (no (unknown) (unknown) Oncology Progress (units (unknown) date) Note unknown) (unknown) (no (unknown) (unknown) Other: (units (unkno wn) date) unknown) (unknown) (no (unknown) (unknown) PEP Comment 4c (units (unknown) date) Comment (.) unknown) 08/27/22 13:23 (unknown) (no (unknown) (unknown) PEP Comment (units (un known) date) Comment (.) unknown) 08/27/22 13:23 (unknown) (no (unknown) (unknown) PN -Subjective (units (unknown) date) unknown) (unknown) (no (unknown) (unknown) Patient Weight (units (unknown) date) unknown) (unknown) (no (unknown) (unknown) Patient underwent (units (unknown) date) CT of the abdomen unknown) and pelvis with contrast. The scan showed no (unknown) (no (unknown) (unknown) Patient: (units (unkno wn) date) Nguyen Tracey unknown) MR#: [id number] (unknown) (no (unknown) (unknown) Plan: (units (unkno wn) date) unknown) (unknown) (no (unknown) (unknown) Plt Count 316 (units ( unknown) date) X103/uL (150-400) unknown) 08/27/22 13:23 (unknown) (no (unknown) (unknown) Potassium 3.6 (units ( unknown) date) mmol/L (3.4-5.1) unknown) 08/27/22 13:23 (unknown) (no (unknown) (unknown) Procedures (units (unk nown) date) unknown) (unknown) (no (unknown) (unknown) Prot Electrophor (units (unknown) date) PDF Not Reportable unknown) 08/27/22 13:23 (unknown) (no (unknown) (unknown) Provider: (units (unkn own) date) Aaron Anne MD unknown) (unknown) (no (unknown) (unknown) Psychiatric: (units (u nknown) date) anxious unknown) (unknown) (no (unknown) (unknown) RBC 4.67 X106/uL (units (unknown) date) (4.0-5.2) 08/27/22 unknown) 13:23 (unknown) (no (unknown) (unknown) RDW 14.1 % (units (unk nown) date) (11.6-14.8) unknown) 08/27/22 13:23 (unknown) (no (unknown) (unknown) RTC after the test (units (unknown) date) results are unknown) available. (unknown) (no (unknown) (unknown) Resection of Right (units (unknown) date) Large Intestine, unknown) Open Approach (01/09/22) (unknown) (no (unknown) (unknown) Respiratory: No (units (unknown) date) use of accessory unknown) muscles. CTAB, no wheezes. (unknown) (no (unknown) (unknown) Results (units (unkno wn) date) unknown) (unknown) (no (unknown) (unknown) SR Cardiovascular (units (unknown) date) issues: Shortness unknown) of breath with activity or lying flat (unknown) (no (unknown) (unknown) SR Constitution: (units (unknown) date) Weight loss/gain unknown) (unknown) (no (unknown) (unknown) SR Endocrine (units (u nknown) date) issues: Excessive unknown) thirst (unknown) (no (unknown) (unknown) SR (units (unkno wn) date) Gastrointestinal unknown) issues: Poor or no appetite (unknown) (no (unknown) (unknown) SR Genitourinary (units (unknown) date) issues: Sexual unknown) difficulties, Vaginal bleeding (unknown) (no (unknown) (unknown) SR Hematologic (units (unknown) date) issues: unknown) Bleeding/bruising (unknown) (no (unknown) (unknown) SR Musculoskeletal (units (unknown) date) issues: Cold hands unknown) or feet (unknown) (no (unknown) (unknown) SR Neuro issues: (units (unknown) date) Numbness or unknown) tingling (unknown) (no (unknown) (unknown) SR ears, nose, (units (unknown) date) mouth, throat unknown) issues: Bleeding gums (unknown) (no (unknown) (unknown) Serum Total (units (un known) date) Protein 7.8 g/dL unknown) (6.0-8.5) 08/27/22 13:23 (unknown) (no (unknown) (unknown) Signed By: (units (unk nown) date) unknown) (unknown) (no (unknown) (unknown) Since after the (units (unknown) date) surgery, patient unknown) has been followed at [facility] by (unknown) (no (unknown) (unknown) Since her previous (units (unknown) date) visit, on unknown) 07/19/2022, patient developed left-sided numbness (unknown) (no (unknown) (unknown) Sodium 141 mmol/L (units (unknown) date) (137-145) 08/27/22 unknown) 13:23 (unknown) (no (unknown) (unknown) Temp Pulse Resp BP (units (unknown) date) Pulse Ox unknown) (unknown) (no (unknown) (unknown) The most recent on (units (unknown) date) 07/24/2022 was 9.2. unknown) I talked with the patient that I will (unknown) (no (unknown) (unknown) The patient (units (un known) date) underwent CT unknown) abdomen and pelvis with contrast on 12/07/2021 that (unknown) (no (unknown) (unknown) Therefore, she (units (unknown) date) underwent FL barium unknown) enema with air contrast on 01/03/2022. Area (unknown) (no (unknown) (unknown) Today, I reviewed (units (unknown) date) the most recent unknown) colonoscopy (07/12/2022) with the patient. I (unknown) (no (unknown) (unknown) Today, on (units (unkn own) date) reviewing of the unknown) lab results, I talked with her that her serum total (unknown) (no (unknown) (unknown) Total Bilirubin (units (unknown) date) 0.5 mg/dL (0.2-1.3) unknown) 08/27/22 13:23 (unknown) (no (unknown) (unknown) Total Protein 8.2 (units (unknown) date) g/dL (6.3-8.2) unknown) 08/27/22 13:23 (unknown) (no (unknown) (unknown) Vital Signs (units (un known) date) unknown) (unknown) (no (unknown) (unknown) Vital signs: (units (u nknown) date) unknown) (unknown) (no (unknown) (unknown) Vitals above (units (u nknown) date) reviewed unknown) (unknown) (no (unknown) (unknown) WBC 11.7 X103/uL (units (unknown) date) (4.5-11.0) H unknown) 08/27/22 13:23 (unknown) (no (unknown) (unknown) Weight 72 kg (units (u nknown) date) unknown) (unknown) (no (unknown) (unknown) acute (units (unkno wn) date) intra-abdominal unknown) findings. Trace pericolonic fat stranding adjacent to the (unknown) (no (unknown) (unknown) adenocarcinoma. (units (unknown) date) She underwent unknown) robotic hysterectomy and bilateral salpingo (unknown) (no (unknown) (unknown) also indicated (units (unknown) date) normal CEA level. I unknown) talked with the patient I am recommending (unknown) (no (unknown) (unknown) also reviewed the (units (unknown) date) CT of the abdomen unknown) pelvis (07/11/2022). Overall, no evidence (unknown) (no (unknown) (unknown) amitriptyline 75 (units (unknown) date) mg tablet 75 mg PO unknown) HS ##0 02/09/11 09/03/22 History (unknown) (no (unknown) (unknown) and right colon. (units (unknown) date) Targeted unknown) single-contrast barium edema for additional evaluation (unknown) (no (unknown) (unknown) and she is quite (units (unknown) date) stressed out. unknown) (unknown) (no (unknown) (unknown) and tingling and (units (unknown) date) also was unknown) complaining she was not able to see with her left (unknown) (no (unknown) (unknown) appendiceal soft (units (unknown) date) tissue and was unknown) negative for mucin and neoplasm. In addition (unknown) (no (unknown) (unknown) appendix is (units (un known) date) concerned. unknown) (unknown) (no (unknown) (unknown) aspirin 81 mg (units ( unknown) date) tablet,delayed 81 unknown) mg PO DAILY 12/21/21 09/03/22 History (unknown) (no (unknown) (unknown) assessed. Other (units (unknown) date) margins negative. unknown) Pathological staging was pT4a, pNx. (unknown) (no (unknown) (unknown) assisted right (units (unknown) date) hemicolectomy. The unknown) final pathology showed no evidence of (unknown) (no (unknown) (unknown) atorvastatin 40 mg (units (unknown) date) tablet 40 mg PO unknown) DAILY 11/27/21 09/03/22 History (unknown) (no (unknown) (unknown) blood in the (units (u nknown) date) stool. Patient unknown) therefore underwent CT abdomen and pelvis with (unknown) (no (unknown) (unknown) cecectomy on (units (u nknown) date) 12/15/2020 due to unknown) positive proximal margin. Final pathological (unknown) (no (unknown) (unknown) check serum (units (un known) date) protein unknown) electrophoresis. Patient voiced understanding. (unknown) (no (unknown) (unknown) circumferential (units (unknown) date) cecal margin was unknown) negative for mucin or neoplasm. (unknown) (no (unknown) (unknown) complaining (units (un known) date) exquisite unknown) right-sided abdominal pain. She was sent to and was (unknown) (no (unknown) (unknown) continued (units (unkn own) date) follow-up as long unknown) as the primary mucinous adenocarcinoma of the (unknown) (no (unknown) (unknown) contrast that (units ( unknown) date) showed no acute CT unknown) findings in the abdomen and pelvis. No (unknown) (no (unknown) (unknown) detected. 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 (unknown) (no (unknown) (unknown) evidence of (units (un known) date) diverticulitis. unknown) Surgical bowel anastomosis in the right upper (unknown) (no (unknown) (unknown) expression of (units ( unknown) date) MLH1, MSH2, MSH6, unknown) and PMS2 mismatch repair proteins. (unknown) (no (unknown) (unknown) eyes. Patient was (units (unknown) date) evaluated at the unknown) emergency room of [facility]. Brain CT (unknown) (no (unknown) (unknown) foci of mucinous (units (unknown) date) differentiation, unknown) FIGO grade 1, measuring 4.1 x 2.3 x 0.7 cm, (unknown) (no (unknown) (unknown) follow up visit. (units (unknown) date) unknown) (unknown) (no (unknown) (unknown) grade 1) (units (unkno wn) date) endometrioid unknown) adenocarcinoma of the uterus after endometrial curettings (unknown) (no (unknown) (unknown) have her come back (units (unknown) date) in about a month unknown) and I will repeat the test. I will also (unknown) (no (unknown) (unknown) hemicolectomy. The (units (unknown) date) final pathology unknown) showed no evidence of neoplasm. It showed (unknown) (no (unknown) (unknown) hepatic flexure but (units (unknown) date) the cecum could not unknown) be reached. The scope was fully inserted (unknown) (no (unknown) (unknown) hyperplasia, (units (u nknown) date) segment of colon unknown) with no diagnostic abnormality and 10 benign (unknown) (no (unknown) (unknown) identified, (units (un known) date) proximal margin unknown) involved by LAMN and mesenteric margin cannot be (unknown) (no (unknown) (unknown) insulin glargine (units (unknown) date) 100 unit/mL 35 unit unknown) SUBCUT QPM 11/27/21 09/03/22 History (unknown) (no (unknown) (unknown) involvement not (units (unknown) date) identified, unknown) lymphovascular invasion present, no regional lymph (unknown) (no (unknown) (unknown) lisinopril 20 mg (units (unknown) date) tablet 10 mg PO unknown) QDAY ##0 02/09/11 09/03/22 History (unknown) (no (unknown) (unknown) measuring 2.9 x 5.3 (units (unknown) date) x 6.3 cm, and unknown) ill-defined hypodensity in hepatic segment 4B. (unknown) (no (unknown) (unknown) metastatic (units (unk nown) date) disease. unknown) Colonoscopy on 11/30/2020 showed submucosal cecal mass, (unknown) (no (unknown) (unknown) metformin 500 mg (units (unknown) date) tablet 500 mg PO unknown) BID 11/27/21 09/03/22 History (unknown) (no (unknown) (unknown) myometrial (units (unk nown) date) invasion present, unknown) depth of myometrial invasion 13 mm, myometrial (unknown) (no (unknown) (unknown) neoplasm. It (units (u nknown) date) showed segment of unknown) terminal ileum with reactive lymphoid (unknown) (no (unknown) (unknown) no findings of (units (unknown) date) acute or subacute unknown) infarction. No MRI findings of hemorrhage were (unknown) (no (unknown) (unknown) nodes found. (units (u nknown) date) Pathological unknown) staging pT1b, pNx. IHC showed ubtact nuclear (unknown) (no (unknown) (unknown) normal ileal (units (u nknown) date) colonic unknown) anastomosis, and no evidence of colonic bleeding. It did (unknown) (no (unknown) (unknown) of disease (units (unk nown) date) recurrence or unknown) metastasis. Talked with patient that the lab results (unknown) (no (unknown) (unknown) of fat deposition, (units (unknown) date) both microscopic unknown) and macroscopic in the dorsal aspect of (unknown) (no (unknown) (unknown) of narrowing in the (units (unknown) date) distal right colon unknown) noted, but suboptimally visualized due to (unknown) (no (unknown) (unknown) omeprazole 20 mg (units (unknown) date) capsule,delayed 20 unknown) mg PO DAILY 01/09/22 09/03/22 History (unknown) (no (unknown) (unknown) on 06/25/2020. Her (units (unknown) date) uterine cancer was unknown) MMR (IHC) intact and negative for P53. She (unknown) (no (unknown) (unknown) oophorectomy on (units (unknown) date) 09/06/2020. unknown) Pathological staging pT1b, pNX, cM0. Patient (unknown) (no (unknown) (unknown) oophorectomy, with (units (unknown) date) appendectomy on unknown) 09/06/2020. She then underwent partial (unknown) (no (unknown) (unknown) originally (units (unk nown) date) presented with unknown) vaginal bleeding. (unknown) (no (unknown) (unknown) otherwise normal. (units (unknown) date) unknown) (unknown) (no (unknown) (unknown) pericolonic lymph (units (unknown) date) nodes. unknown) (unknown) (no (unknown) (unknown) peritoneum, (units (un known) date) lymphovascular unknown) invasion not identified, perineural invasion not (unknown) (no (unknown) (unknown) presence of a (units ( unknown) date) mobile cecum in the unknown) right upper quadrant, a probable strictured (unknown) (no (unknown) (unknown) protein level has (units (unknown) date) been elevated since unknown) November 2021 with occasional fluctuations. (unknown) (no (unknown) (unknown) quadrant was noted (units (unknown) date) and was without unknown) evidence of complication. (unknown) (no (unknown) (unknown) recommended by (units (unknown) date) Chante Faustin. unknown) (unknown) (no (unknown) (unknown) release (units (unkno wn) date) unknown) (unknown) (no (unknown) (unknown) salpingo-oophorect (units (unknown) date) brooke, sentinel lymph unknown) biopsy and appendectomy by Dr. Jackman (unknown) (no (unknown) (unknown) segment 4A. Mild (units (unknown) date) hepatomegaly and unknown) patchy, geographic areas of mild steatosis (unknown) (no (unknown) (unknown) segment of (units (unk nown) date) terminal ileum with unknown) reactive lymphoid hyperplasia, segment of colon (unknown) (no (unknown) (unknown) segment of the (units (unknown) date) right colon, and no unknown) other findings suspicious for malignancy in (unknown) (no (unknown) (unknown) sequestered (units (un known) date) contrast material unknown) and multiple redundant loops of distal transverse (unknown) (no (unknown) (unknown) show internal (units ( unknown) date) hemorrhoids. unknown) (unknown) (no (unknown) (unknown) showed no evidence (units (unknown) date) of acute unknown) intracranial abnormalities. Brain MRI also showed (unknown) (no (unknown) (unknown) showed remote (units ( unknown) date) appendectomy and unknown) hysterectomy, incidental note made of the (unknown) (no (unknown) (unknown) spironolactone 25 (units (unknown) date) mg tablet 25 mg PO unknown) BID 11/27/21 09/03/22 History (unknown) (no (unknown) (unknown) staging was pT4a, (units (unknown) date) pNx, N0. CT showed unknown) probable stricture of the right colon. (unknown) (no (unknown) (unknown) stricture or (units (u nknown) date) polyps were found. unknown) (unknown) (no (unknown) (unknown) subcutaneous (units (u nknown) date) cartridge unknown) (unknown) (no (unknown) (unknown) subcutaneous pen (units (unknown) date) injector unknown) (unknown) (no (unknown) (unknown) surgical (units (unkno wn) date) anastomosis noted. unknown) (unknown) (no (unknown) (unknown) the abdomen or (units (unknown) date) pelvis. unknown) (unknown) (no (unknown) (unknown) the time when she (units (unknown) date) underwent robotic unknown) hysterectomy and bilateral salpingo (unknown) (no (unknown) (unknown) thereafter has (units (unknown) date) been on active unknown) surveillance, and EVANS. (unknown) (no (unknown) (unknown) thickness 23 mm, (units (unknown) date) percentage of unknown) myometrial invasion 57%, adenomyosis present, (unknown) (no (unknown) (unknown) thin-walled fluid (units (unknown) date) containing unknown) structure acute adjacent to the chain sutures (unknown) (no (unknown) (unknown) throughout the (units (unknown) date) parenchyma were unknown) noted. Single prominent lymph node just caudal (unknown) (no (unknown) (unknown) to positive (units (un known) date) margins on unknown) appendectomy specimen. The final pathology showed only (unknown) (no (unknown) (unknown) to the GE junction (units (unknown) date) noted and was unknown) deemed nonspecific. (unknown) (no (unknown) (unknown) unfortunately the (units (unknown) date) scope was unknown) incomplete as 'The scope was advanced beyond the (unknown) (no (unknown) (unknown) uninvolved by (units ( unknown) date) carcinoma, uterine unknown) serosa involvement not identified, lower (unknown) (no (unknown) (unknown) unusually long (units (unknown) date) colon. On unknown) 01/09/2022, Dr. Rob Medina performed laparoscopic (unknown) (no (unknown) (unknown) uterine segment (units (unknown) date) involvement present unknown) and myoinvasive, cervical stromal (unknown) (no (unknown) (unknown) with no bili to (units (unknown) date) advance beyond the unknown) last few turns of the right colon'. No (unknown) (no (unknown) (unknown) with no diagnostic (units (unknown) date) abnormality and 10 unknown) benign pericolonic lymph nodes. 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 (unknown) (no (unknown) (unknown) (3) Endometrial (units (unknown) date) adenocarcinoma unknown) (unknown) (no (unknown) (unknown) (Trulicity) (units (un known) date) unknown) (unknown) (no (unknown) (unknown) - Date of Visit (units (unknown) date) unknown) (unknown) (no (unknown) (unknown) - Imaging (units (unkn own) date) unknown) (unknown) (no (unknown) (unknown) - Labs (units (unkno wn) date) unknown) (unknown) (no (unknown) (unknown) - Patient (units (unkn own) date) Self-Reported unknown) Symptoms (unknown) (no (unknown) (unknown) [id number] (units (unkno wn) date) unknown) (unknown) (no (unknown) (unknown) 07:59 15:59 23:59 (units (unknown) date) unknown) (unknown) (no (unknown) (unknown) 09/03/22 09/03/22 (units (unknown) date) 09/03/22 unknown) (unknown) (no (unknown) (unknown) 09/03/22 16:42 (units (unknown) date) 97.1 F L 72 18 unknown) 146/75 H 99 (unknown) (no (unknown) (unknown) 09/03/22 (units (unkno wn) date) unknown) (unknown) (no (unknown) (unknown) 08/2020 and was (units (unknown) date) diagnosed with unknown) endometrial low-grade endometrioid (unknown) (no (unknown) (unknown) 23:59 (units (unkno wn) date) unknown) (unknown) (no (unknown) (unknown) ALT 20 IU/L (<35) (units (unknown) date) 08/27/22 13:23 unknown) (unknown) (no (unknown) (unknown) AST 18 IU/L (units (un known) date) (14-36) 08/27/22 unknown) 13:23 (unknown) (no (unknown) (unknown) Abdomen: Soft and (units (unknown) date) nontender. Mild unknown) middle lower abdomen pain. (unknown) (no (unknown) (unknown) Additional (units (unk nown) date) studies: unknown) (unknown) (no (unknown) (unknown) Age/Sex: 62 / F (units (unknown) date) unknown) (unknown) (no (unknown) (unknown) Albumin 3.7 g/dL (units (unknown) date) (2.9-4.4) 08/27/22 unknown) 13:23 (unknown) (no (unknown) (unknown) Albumin 4.6 g/dL (units (unknown) date) (3.5-5.0) 08/27/22 unknown) 13:23 (unknown) (no (unknown) (unknown) Albumin/Globulin (units (unknown) date) Ratio 0.9 (0.7-1.7) unknown) 08/27/22 13:23 (unknown) (no (unknown) (unknown) Albumin/Globulin (units (unknown) date) Ratio 1.3 (1.0-2.8) unknown) 08/27/22 13:23 (unknown) (no (unknown) (unknown) Alkaline (units (unkno wn) date) Phosphatase 176 U/L unknown) (38-126) H 08/27/22 13:23 (unknown) (no (unknown) (unknown) Allergies (units (unkn own) date) unknown) (unknown) (no (unknown) (unknown) Allergy/AdvReac (units (unknown) date) Type Severity unknown) Reaction Status Date / Time (unknown) (no (unknown) (unknown) Vqgtu-7-Iptfpmvga (units (unknown) date) 0.3 g/dL (0.0-0.4) unknown) 08/27/22 13:23 (unknown) (no (unknown) (unknown) Cvcag-3-Lvqjzpppd (units (unknown) date) 1.1 g/dL (0.4-1.0) unknown) H 08/27/22 13:23 (unknown) (no (unknown) (unknown) Assessment and (units (unknown) date) Plan unknown) (unknown) (no (unknown) (unknown) BUN 13 mg/dL (units (u nknown) date) (7-17) 08/27/22 unknown) 13:23 (unknown) (no (unknown) (unknown) BUN/Creatinine (units (unknown) date) Ratio 15.7 (6-22) unknown) 08/27/22 13:23 (unknown) (no (unknown) (unknown) Baso # (Auto) 100 (units (unknown) date) /uL (0-100) unknown) 08/27/22 13:23 (unknown) (no (unknown) (unknown) Baso % (Auto) 0.8 (units (unknown) date) % (0-2) 08/27/22 unknown) 13:23 (unknown) (no (unknown) (unknown) Ipyg-8-Znvkyyli (units (unknown) date) 1.3 g/dL (0.7-1.3) unknown) 08/27/22 13:23 (unknown) (no (unknown) (unknown) CT of the abdomen (units (unknown) date) and pelvis on unknown) 10/13/2020 showed no evidence of recurrence or (unknown) (no (unknown) (unknown) Calcium 10.0 mg/dL (units (unknown) date) (8.4-10.2) 08/27/22 unknown) 13:23 (unknown) (no (unknown) (unknown) Carbon Dioxide 20 (units (unknown) date) mmol/L (22-32) L unknown) 08/27/22 13:23 (unknown) (no (unknown) (unknown) Carcinoembryonic (units (unknown) date) Ag 1.3 ng/mL unknown) (0.1-3.0) 07/24/22 11:39 (unknown) (no (unknown) (unknown) Cardiovascular: (units (unknown) date) RRR, S1 and S2 unknown) normal, no M/G/R. No edema of lower extremities. (unknown) (no (unknown) (unknown) Nguyen Tracey is a (units (unknown) date) 61 year old female. unknown) She was diagnosed with low grade (FIGO (unknown) (no (unknown) (unknown) Nguyen had an (units ( unknown) date) incidental unknown) diagnosis of appendiceal mucinous adenocarcinoma, at (unknown) (no (unknown) (unknown) Nguyen is a (units (un known) date) 62-year-old female unknown) who presented with abnormal vaginal bleeding in (unknown) (no (unknown) (unknown) Chief Complaint: (units (unknown) date) Nguyen is a 62 year unknown) old female with history of endometrial (unknown) (no (unknown) (unknown) Chloride 103 (units (u nknown) date) mmol/L (98-107) unknown) 08/27/22 13:23 (unknown) (no (unknown) (unknown) Constitutional: (units (unknown) date) WDWN, NAD, pleasant unknown) and cooperative. (unknown) (no (unknown) (unknown) Creatinine 0.83 (units (unknown) date) mg/dL (0.52-1.04) unknown) 08/27/22 13:23 (unknown) (no (unknown) (unknown) : 1960 (units (unknown) date) Acct:[id number] unknown) (unknown) (no (unknown) (unknown) Date of Service: (units (unknown) date) 09/03/22 unknown) (unknown) (no (unknown) (unknown) Date of visit: (units (unknown) date) 09/03/22 unknown) (unknown) (no (unknown) (unknown) Dr. Rob Medina (units (unknown) date) evaluated the unknown) patient and performed C-scope on 12/21/2021, (unknown) (no (unknown) (unknown) Due to elevated (units (unknown) date) total protein unknown) level, we obtained protein electrophoresis as well (unknown) (no (unknown) (unknown) ECOG 1 (units (unkno wn) date) unknown) (unknown) (no (unknown) (unknown) Eos # (Auto) 500 (units (unknown) date) /uL (0-450) H unknown) 08/27/22 13:23 (unknown) (no (unknown) (unknown) Eos % (Auto) 4.2 % (units (unknown) date) (2-4) H 08/27/22 unknown) 13:23 (unknown) (no (unknown) (unknown) Estimated GFR > 60 (units (unknown) date) mL/min (>60) unknown) 08/27/22 13:23 (unknown) (no (unknown) (unknown) Exam (units (unkno wn) date) unknown) (unknown) (no (unknown) (unknown) Gamma Glob/Tot (units (unknown) date) Protein 4.1 g/dL unknown) (2.2-3.9) H 08/27/22 13:23 (unknown) (no (unknown) (unknown) Gamma Globulins (units (unknown) date) 1.4 g/dL (0.4-1.8) unknown) 08/27/22 13:23 (unknown) (no (unknown) (unknown) General surgery (units (unknown) date) Dr. Boyd unknown) performed colonoscopy that was incomplete due to (unknown) (no (unknown) (unknown) Globulin 3.6 g/dL (units (unknown) date) (1.7-4.1) 08/27/22 unknown) 13:23 (unknown) (no (unknown) (unknown) Glucose 225 mg/dL (units (unknown) date) (80-110) H 08/27/22 unknown) 13:23 (unknown) (no (unknown) (unknown) HEENT: NCAT, EOMI, (units (unknown) date) PERRLA. Anicteric unknown) sclera. (unknown) (no (unknown) (unknown) Hct 36.6 % (36-46) (units (unknown) date) 08/27/22 13:23 unknown) (unknown) (no (unknown) (unknown) Hematology and (units (unknown) date) Oncology HPI: unknown) (unknown) (no (unknown) (unknown) Her serum total (units (unknown) date) protein level has unknown) been elevated since November 2021 with occasional (unknown) (no (unknown) (unknown) Hgb 12.3 g/dL (units ( unknown) date) (12.0-16.0) unknown) 08/27/22 13:23 (unknown) (no (unknown) (unknown) Home Medications (units (unknown) date) and Allergies unknown) (unknown) (no (unknown) (unknown) Home Medications (units (unknown) date) unknown) (unknown) (no (unknown) (unknown) STEPHANIE M-Andre Not (units (unknown) date) observed g/dL (Not unknown) Observed) 08/27/22 13:23 (unknown) (no (unknown) (unknown) In addition, (units (u nknown) date) pathology also unknown) reported low-grade appendiceal mucinous neoplasm (unknown) (no (unknown) (unknown) Intake and Output (units (unknown) date) unknown) (unknown) (no (unknown) (unknown) Interval history: (units (unknown) date) unknown) (unknown) (no (unknown) (unknown) [facility] (units (unknown) date) [address] unknown) [place] [address] (unknown) (no (unknown) (unknown) Laboratory Last (units (unknown) date) Values unknown) (unknown) (no (unknown) (unknown) Lymph # (Auto) (units (unknown) date) 3600 /uL unknown) (1292-2800) 08/27/22 13:23 (unknown) (no (unknown) (unknown) Lymph % (Auto) (units (unknown) date) 30.8 % (25-40) unknown) 08/27/22 13:23 (unknown) (no (unknown) (unknown) Lymphatic: no (units ( unknown) date) palpable palpable unknown) lymph nodes in the neck, axillae or groins (unknown) (no (unknown) (unknown) MCH 26.3 PG (units (un known) date) (26-34) 08/27/22 unknown) 13:23 (unknown) (no (unknown) (unknown) MCHC 33.6 % (units (un known) date) (30-36) 08/27/22 unknown) 13:23 (unknown) (no (unknown) (unknown) MCV 78.3 fL (units (un known) date) (80-100) L 08/27/22 unknown) 13:23 (unknown) (no (unknown) (unknown) Medication (units (unk nown) date) Instructions unknown) Recorded Confirmed Type (unknown) (no (unknown) (unknown) Letcher # (Auto) 500 (units (unknown) date) /uL (0-900) unknown) 08/27/22 13:23 (unknown) (no (unknown) (unknown) Letcher % (Auto) 4.4 (units (unknown) date) % (3-14) 08/27/22 unknown) 13:23 (unknown) (no (unknown) (unknown) Scott, F. The (units (u nknown) date) patient has been unknown) getting clinic visits and CT scan every 4 months. (unknown) (no (unknown) (unknown) Scott. Surgical (units (unknown) date) pathology showed unknown) endometrial endometrioid adenocarcinoma with (unknown) (no (unknown) (unknown) Musculoskeletal: (units (unknown) date) normal gait and unknown) station (unknown) (no (unknown) (unknown) Narrative: (units (unk nown) date) unknown) (unknown) (no (unknown) (unknown) Neck: Supple and (units (unknown) date) symmetrical, no unknown) palpable masses. No palpable thyromegaly. (unknown) (no (unknown) (unknown) Neurological: AOx3, (units (unknown) date) CN II-XII grossly unknown) intact. No focal motor or sensory deficit. (unknown) (no (unknown) (unknown) Neut # (Auto) 7000 (units (unknown) date) /uL (0617-3382) unknown) 08/27/22 13:23 (unknown) (no (unknown) (unknown) Neut % (Auto) 59.8 (units (unknown) date) % (50-75) 08/27/22 unknown) 13:23 (unknown) (no (unknown) (unknown) No Known Drug (units ( unknown) date) Allergies Allergy unknown) Verified 07/12/22 13:00 (unknown) (no (unknown) (unknown) On 07/11/2022, (units (unknown) date) patient was unknown) complaining left lower quadrant abdominal pain and (unknown) (no (unknown) (unknown) On 07/12/2022, (units (unknown) date) Nano Tucker unknown) performed colonoscopy. The colonoscopy showed (unknown) (no (unknown) (unknown) On 09/06/2020 (units ( unknown) date) patient underwent unknown) robotic total hysterectomy with bilateral (unknown) (no (unknown) (unknown) On 12/15/2020, (units (unknown) date) Maulik Dennison unknown) performed laparoscopic partial cecectomy due (unknown) (no (unknown) (unknown) On 01/09/2022, (units (unknown) date) Rob Medina unknown) performed laparoscopic assisted right (unknown) (no (unknown) (unknown) On 01/23/2022, she (units (unknown) date) was evaluated at unknown) the clinic. At that time, patient was (unknown) (no (unknown) (unknown) On 05/18/2021, (units ( unknown) date) patient underwent unknown) CT abdomen and pelvis with contrast that showed (unknown) (no (unknown) (unknown) On 06/21/2021, (units ( unknown) date) patient underwent unknown) liver MR that showed 1.4 cm non-enhancing focus (unknown) (no (unknown) (unknown) Oncology Progress (units (unknown) date) Note unknown) (unknown) (no (unknown) (unknown) Other: (units (unkno wn) date) unknown) (unknown) (no (unknown) (unknown) PEP Comment 4c (units (unknown) date) Comment (.) unknown) 08/27/22 13:23 (unknown) (no (unknown) (unknown) PEP Comment (units (un known) date) Comment (.) unknown) 08/27/22 13:23 (unknown) (no (unknown) (unknown) PN -Subjective (units (unknown) date) unknown) (unknown) (no (unknown) (unknown) Patient Weight (units (unknown) date) unknown) (unknown) (no (unknown) (unknown) Patient underwent (units (unknown) date) CT of the abdomen unknown) and pelvis with contrast. The scan showed no (unknown) (no (unknown) (unknown) Patient: (units (unkno wn) date) Nguyen Tracey unknown) MR#: [id number] (unknown) (no (unknown) (unknown) Plan: (units (unkno wn) date) unknown) (unknown) (no (unknown) (unknown) Plt Count 316 (units ( unknown) date) X103/uL (150-400) unknown) 08/27/22 13:23 (unknown) (no (unknown) (unknown) Potassium 3.6 (units ( unknown) date) mmol/L (3.4-5.1) unknown) 08/27/22 13:23 (unknown) (no (unknown) (unknown) Procedures (units (unk nown) date) unknown) (unknown) (no (unknown) (unknown) Prot Electrophor (units (unknown) date) PDF Not Reportable unknown) 08/27/22 13:23 (unknown) (no (unknown) (unknown) Provider: (units (unkn own) date) Aaron Anne MD unknown) (unknown) (no (unknown) (unknown) Psychiatric: (units (u nknown) date) anxious unknown) (unknown) (no (unknown) (unknown) RBC 4.67 X106/uL (units (unknown) date) (4.0-5.2) 08/27/22 unknown) 13:23 (unknown) (no (unknown) (unknown) RDW 14.1 % (units (unk nown) date) (11.6-14.8) unknown) 08/27/22 13:23 (unknown) (no (unknown) (unknown) RTC in 6 months, (units (unknown) date) CBC, CMP, CEA unknown) (unknown) (no (unknown) (unknown) RTC in 6 months, (units (unknown) date) CBC,CMP unknown) (unknown) (no (unknown) (unknown) Resection of Right (units (unknown) date) Large Intestine, unknown) Open Approach (01/09/22) (unknown) (no (unknown) (unknown) Respiratory: No (units (unknown) date) use of accessory unknown) muscles. CTAB, no wheezes. (unknown) (no (unknown) (unknown) Results (units (unkno wn) date) unknown) (unknown) (no (unknown) (unknown) SR Cardiovascular (units (unknown) date) issues: Shortness unknown) of breath with activity or lying flat (unknown) (no (unknown) (unknown) SR Constitution: (units (unknown) date) Weight loss/gain unknown) (unknown) (no (unknown) (unknown) SR Endocrine (units (u nknown) date) issues: Excessive unknown) thirst (unknown) (no (unknown) (unknown) SR (units (unkno wn) date) Gastrointestinal unknown) issues: Poor or no appetite (unknown) (no (unknown) (unknown) SR Genitourinary (units (unknown) date) issues: Sexual unknown) difficulties, Vaginal bleeding (unknown) (no (unknown) (unknown) SR Hematologic (units (unknown) date) issues: unknown) Bleeding/bruising (unknown) (no (unknown) (unknown) SR Musculoskeletal (units (unknown) date) issues: Cold hands unknown) or feet (unknown) (no (unknown) (unknown) SR Neuro issues: (units (unknown) date) Numbness or unknown) tingling (unknown) (no (unknown) (unknown) SR ears, nose, (units (unknown) date) mouth, throat unknown) issues: Bleeding gums (unknown) (no (unknown) (unknown) Serum Total (units (un known) date) Protein 7.8 g/dL unknown) (6.0-8.5) 08/27/22 13:23 (unknown) (no (unknown) (unknown) Signed (units (unkno wn) date) By:<Electronically unknown) signed by Aaron Anne MD>09/03/22 1734 (unknown) (no (unknown) (unknown) Since after the (units (unknown) date) surgery, patient unknown) has been followed at [facility] by (unknown) (no (unknown) (unknown) Since her previous (units (unknown) date) visit, on unknown) 07/19/2022, patient developed left-sided numbness (unknown) (no (unknown) (unknown) Sodium 141 mmol/L (units (unknown) date) (137-145) 08/27/22 unknown) 13:23 (unknown) (no (unknown) (unknown) Temp Pulse Resp BP (units (unknown) date) Pulse Ox unknown) (unknown) (no (unknown) (unknown) The patient (units (un known) date) underwent CT unknown) abdomen and pelvis with contrast on 12/07/2021 that (unknown) (no (unknown) (unknown) Therefore, she (units (unknown) date) underwent FL barium unknown) enema with air contrast on 01/03/2022. Area (unknown) (no (unknown) (unknown) Total Bilirubin (units (unknown) date) 0.5 mg/dL (0.2-1.3) unknown) 08/27/22 13:23 (unknown) (no (unknown) (unknown) Total Protein 8.2 (units (unknown) date) g/dL (6.3-8.2) unknown) 08/27/22 13:23 (unknown) (no (unknown) (unknown) Vital Signs (units (un known) date) unknown) (unknown) (no (unknown) (unknown) Vital signs: (units (u nknown) date) unknown) (unknown) (no (unknown) (unknown) Vitals above (units (u nknown) date) reviewed unknown) (unknown) (no (unknown) (unknown) WBC 11.7 X103/uL (units (unknown) date) (4.5-11.0) H unknown) 08/27/22 13:23 (unknown) (no (unknown) (unknown) Weight 72 kg (units (u nknown) date) unknown) (unknown) (no (unknown) (unknown) acute (units (unkno wn) date) intra-abdominal unknown) findings. Trace pericolonic fat stranding adjacent to the (unknown) (no (unknown) (unknown) adenocarcinoma. (units (unknown) date) She underwent unknown) robotic hysterectomy and bilateral salpingo (unknown) (no (unknown) (unknown) amitriptyline 75 (units (unknown) date) mg tablet 75 mg PO unknown) HS ##0 02/09/11 09/03/22 History (unknown) (no (unknown) (unknown) and right colon. (units (unknown) date) Targeted unknown) single-contrast barium edema for additional evaluation (unknown) (no (unknown) (unknown) and tingling and (units (unknown) date) also was unknown) complaining she was not able to see with her left (unknown) (no (unknown) (unknown) appendiceal soft (units (unknown) date) tissue and was unknown) negative for mucin and neoplasm. In addition (unknown) (no (unknown) (unknown) as immunofixation (units (unknown) date) of the peripheral unknown) blood. She presents here today to review of (unknown) (no (unknown) (unknown) aspirin 81 mg (units ( unknown) date) tablet,delayed 81 unknown) mg PO DAILY 12/21/21 09/03/22 History (unknown) (no (unknown) (unknown) assessed. Other (units (unknown) date) margins negative. unknown) Pathological staging was pT4a, pNx. (unknown) (no (unknown) (unknown) assisted right (units (unknown) date) hemicolectomy. The unknown) final pathology showed no evidence of (unknown) (no (unknown) (unknown) atorvastatin 40 mg (units (unknown) date) tablet 40 mg PO unknown) DAILY 11/27/21 09/03/22 History (unknown) (no (unknown) (unknown) blood in the (units (u nknown) date) stool. Patient unknown) therefore underwent CT abdomen and pelvis with (unknown) (no (unknown) (unknown) cecectomy on (units (u nknown) date) 12/15/2020 due to unknown) positive proximal margin. 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 (units (unknown) date) She presents here unknown) today for follow-up of the laboratory test (unknown) (no (unknown) (unknown) circumferential (units (unknown) date) cecal margin was unknown) negative for mucin or neoplasm. (unknown) (no (unknown) (unknown) complaining (units (un known) date) exquisite unknown) right-sided abdominal pain. She was sent to and was (unknown) (no (unknown) (unknown) condition. This is (units (unknown) date) consistent with the unknown) improvement of her (unknown) (no (unknown) (unknown) contrast that (units ( unknown) date) showed no acute CT unknown) findings in the abdomen and pelvis. No (unknown) (no (unknown) (unknown) convalescense with (units (unknown) date) a return to normal unknown) or the onset of a chronic inflammatory (unknown) (no (unknown) (unknown) detected. 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 (unknown) (no (unknown) (unknown) evidence of (units (un known) date) diverticulitis. unknown) Surgical bowel anastomosis in the right upper (unknown) (no (unknown) (unknown) expression of (units ( unknown) date) MLH1, MSH2, MSH6, unknown) and PMS2 mismatch repair proteins. (unknown) (no (unknown) (unknown) eyes. Patient was (units (unknown) date) evaluated at the unknown) emergency room of [facility]. Brain CT (unknown) (no (unknown) (unknown) fluctuations. (units ( unknown) date) Therefore we unknown) obtained blood samples to check for possible plasma (unknown) (no (unknown) (unknown) foci of mucinous (units (unknown) date) differentiation, unknown) FIGO grade 1, measuring 4.1 x 2.3 x 0.7 cm, (unknown) (no (unknown) (unknown) follow up visit. (units (unknown) date) unknown) (unknown) (no (unknown) (unknown) further testing (units (unknown) date) stasis air at this unknown) point. (unknown) (no (unknown) (unknown) grade 1) (units (unkno wn) date) endometrioid unknown) adenocarcinoma of the uterus after endometrial curettings (unknown) (no (unknown) (unknown) hemicolectomy. The (units (unknown) date) final pathology unknown) showed no evidence of neoplasm. It showed (unknown) (no (unknown) (unknown) hepatic flexure but (units (unknown) date) the cecum could not unknown) be reached. The scope was fully inserted (unknown) (no (unknown) (unknown) hyperplasia, (units (u nknown) date) segment of colon unknown) with no diagnostic abnormality and 10 benign (unknown) (no (unknown) (unknown) identified, (units (un known) date) proximal margin unknown) involved by LAMN and mesenteric margin cannot be (unknown) (no (unknown) (unknown) insulin glargine (units (unknown) date) 100 unit/mL 35 unit unknown) SUBCUT QPM 11/27/21 09/03/22 History (unknown) (no (unknown) (unknown) intermediate stage (units (unknown) date) between 2 possible unknown) courses for acute inflammation: total (unknown) (no (unknown) (unknown) involvement not (units (unknown) date) identified, unknown) lymphovascular invasion present, no regional lymph (unknown) (no (unknown) (unknown) is suggestive of a (units (unknown) date) sub-acute unknown) inflammatory response. The results indicate an (unknown) (no (unknown) (unknown) leukocytosis/eosin (units (unknown) date) ophilia. Her total unknown) protein level is also improving. No (unknown) (no (unknown) (unknown) lisinopril 20 mg (units (unknown) date) tablet 10 mg PO unknown) QDAY ##0 02/09/11 09/03/22 History (unknown) (no (unknown) (unknown) measuring 2.9 x 5.3 (units (unknown) date) x 6.3 cm, and unknown) ill-defined hypodensity in hepatic segment 4B. (unknown) (no (unknown) (unknown) metastatic (units (unk nown) date) disease. unknown) Colonoscopy on 11/30/2020 showed submucosal cecal mass, (unknown) (no (unknown) (unknown) metformin 500 mg (units (unknown) date) tablet 500 mg PO unknown) BID 11/27/21 09/03/22 History (unknown) (no (unknown) (unknown) myometrial (units (unk nown) date) invasion present, unknown) depth of myometrial invasion 13 mm, myometrial (unknown) (no (unknown) (unknown) neoplasm. It (units (u nknown) date) showed segment of unknown) terminal ileum with reactive lymphoid (unknown) (no (unknown) (unknown) no findings of (units (unknown) date) acute or subacute unknown) infarction. No MRI findings of hemorrhage were (unknown) (no (unknown) (unknown) nodes found. (units (u nknown) date) Pathological unknown) staging pT1b, pNx. IHC showed ubtact nuclear (unknown) (no (unknown) (unknown) normal ileal (units (u nknown) date) colonic unknown) anastomosis, and no evidence of colonic bleeding. It did (unknown) (no (unknown) (unknown) of fat deposition, (units (unknown) date) both microscopic unknown) and macroscopic in the dorsal aspect of (unknown) (no (unknown) (unknown) of narrowing in the (units (unknown) date) distal right colon unknown) noted, but suboptimally visualized due to (unknown) (no (unknown) (unknown) omeprazole 20 mg (units (unknown) date) capsule,delayed 20 unknown) mg PO DAILY 01/09/22 09/03/22 History (unknown) (no (unknown) (unknown) on 06/25/2020. Her (units (unknown) date) uterine cancer was unknown) MMR (IHC) intact and negative for P53. She (unknown) (no (unknown) (unknown) oophorectomy on (units (unknown) date) 09/06/2020. unknown) Pathological staging pT1b, pNX, cM0. Patient (unknown) (no (unknown) (unknown) oophorectomy, with (units (unknown) date) appendectomy on unknown) 09/06/2020. She then underwent partial (unknown) (no (unknown) (unknown) originally (units (unk nown) date) presented with unknown) vaginal bleeding. (unknown) (no (unknown) (unknown) otherwise normal. (units (unknown) date) unknown) (unknown) (no (unknown) (unknown) pericolonic lymph (units (unknown) date) nodes. unknown) (unknown) (no (unknown) (unknown) peritoneum, (units (un known) date) lymphovascular unknown) invasion not identified, perineural invasion not (unknown) (no (unknown) (unknown) presence of a (units ( unknown) date) mobile cecum in the unknown) right upper quadrant, a probable strictured (unknown) (no (unknown) (unknown) quadrant was noted (units (unknown) date) and was without unknown) evidence of complication. (unknown) (no (unknown) (unknown) recommended by (units (unknown) date) Chante Faustin. unknown) (unknown) (no (unknown) (unknown) release (units (unkno wn) date) unknown) (unknown) (no (unknown) (unknown) results. I (units (unk nown) date) reviewed the unknown) protein electrophoresis with the patient. The pattern (unknown) (no (unknown) (unknown) salpingo-oophorect (units (unknown) date) brooke, sentinel lymph unknown) biopsy and appendectomy by Dr. Jackman (unknown) (no (unknown) (unknown) segment 4A. Mild (units (unknown) date) hepatomegaly and unknown) patchy, geographic areas of mild steatosis (unknown) (no (unknown) (unknown) segment of (units (unk nown) date) terminal ileum with unknown) reactive lymphoid hyperplasia, segment of colon (unknown) (no (unknown) (unknown) segment of the (units (unknown) date) right colon, and no unknown) other findings suspicious for malignancy in (unknown) (no (unknown) (unknown) sequestered (units (un known) date) contrast material unknown) and multiple redundant loops of distal transverse (unknown) (no (unknown) (unknown) show internal (units ( unknown) date) hemorrhoids. unknown) (unknown) (no (unknown) (unknown) showed no evidence (units (unknown) date) of acute unknown) intracranial abnormalities. Brain MRI also showed (unknown) (no (unknown) (unknown) showed remote (units ( unknown) date) appendectomy and unknown) hysterectomy, incidental note made of the (unknown) (no (unknown) (unknown) spironolactone 25 (units (unknown) date) mg tablet 25 mg PO unknown) BID 11/27/21 09/03/22 History (unknown) (no (unknown) (unknown) staging was pT4a, (units (unknown) date) pNx, N0. CT showed unknown) probable stricture of the right colon. (unknown) (no (unknown) (unknown) stricture or (units (u nknown) date) polyps were found. unknown) (unknown) (no (unknown) (unknown) subcutaneous (units (u nknown) date) cartridge unknown) (unknown) (no (unknown) (unknown) subcutaneous pen (units (unknown) date) injector unknown) (unknown) (no (unknown) (unknown) surgical (units (unkno wn) date) anastomosis noted. unknown) (unknown) (no (unknown) (unknown) the abdomen or (units (unknown) date) pelvis. unknown) (unknown) (no (unknown) (unknown) the laboratory (units (unknown) date) findings. unknown) Clinically, she reports no new signs or symptoms. (unknown) (no (unknown) (unknown) the time when she (units (unknown) date) underwent robotic unknown) hysterectomy and bilateral salpingo (unknown) (no (unknown) (unknown) thereafter has (units (unknown) date) been on active unknown) surveillance, and EVANS. (unknown) (no (unknown) (unknown) thickness 23 mm, (units (unknown) date) percentage of unknown) myometrial invasion 57%, adenomyosis present, (unknown) (no (unknown) (unknown) thin-walled fluid (units (unknown) date) containing unknown) structure acute adjacent to the chain sutures (unknown) (no (unknown) (unknown) throughout the (units (unknown) date) parenchyma were unknown) noted. Single prominent lymph node just caudal (unknown) (no (unknown) (unknown) to positive (units (un known) date) margins on unknown) appendectomy specimen. The final pathology showed only (unknown) (no (unknown) (unknown) to the GE junction (units (unknown) date) noted and was unknown) deemed nonspecific. (unknown) (no (unknown) (unknown) unfortunately the (units (unknown) date) scope was unknown) incomplete as 'The scope was advanced beyond the (unknown) (no (unknown) (unknown) uninvolved by (units ( unknown) date) carcinoma, uterine unknown) serosa involvement not identified, lower (unknown) (no (unknown) (unknown) unusually long (units (unknown) date) colon. On unknown) 01/09/2022, Dr. Rob Medina performed laparoscopic (unknown) (no (unknown) (unknown) uterine segment (units (unknown) date) involvement present unknown) and myoinvasive, cervical stromal (unknown) (no (unknown) (unknown) with no bili to (units (unknown) date) advance beyond the unknown) last few turns of the right colon'. No (unknown) (no (unknown) (unknown) with no diagnostic (units (unknown) date) abnormality and 10 unknown) benign pericolonic lymph nodes. (unknown) (no (unknown) (unknown) x 1 cm, without (units (unknown) date) tumor deposits, unknown) acellular mucin invading the visceral Result panel 368 (unknown) (no (unknown) (unknown) (no value) (units (unk nown) date) unknown) (unknown) (no (unknown) (unknown) [id number] (units (unkno wn) date) unknown) (unknown) (no (unknown) (unknown) 10/23/22 (units (unkno wn) date) unknown) (unknown) (no (unknown) (unknown) [address] [place] [id number] (units (unknown) date) unknown) (unknown) (no (unknown) (unknown) Accession Number: (units (unknown) date) [id number] unknown) (unknown) (no (unknown) (unknown) Age/Sex: 62 / F (units (unknown) date) Date of Service: unknown) (unknown) (no (unknown) (unknown) [place] (units ( unknown) date) [id number] unknown) (unknown) (no (unknown) (unknown) Approved by: (units (u nknown) date) Bart Cohen M.D. on unknown) 10/23/2022 at 11:32 (unknown) (no (unknown) (unknown) Brain: No (units (unkn own) date) intracranial unknown) hemorrhage. Winters-white differentiation is grossly (unknown) (no (unknown) (unknown) COMPARISON: None. (units (unknown) date) unknown) (unknown) (no (unknown) (unknown) CSF spaces: Basal (units (unknown) date) cisterns are unknown) patent. Lateral ventricles are symmetric. (unknown) (no (unknown) (unknown) CT Scan Report (units (unknown) date) unknown) (unknown) (no (unknown) (unknown) Craniofacial (units (u nknown) date) structures: There unknown) is opacification of the left maxillary sinus. (unknown) (no (unknown) (unknown) : 1960 (units (unknown) date) Acct:[id number] unknown) (unknown) (no (unknown) (unknown) Dictated by: (units (u nknown) date) Bart Cohen M.D. on unknown) 10/23/2022 at 11:30 (unknown) (no (unknown) (unknown) FINDINGS: (units (unkn own) date) unknown) (unknown) (no (unknown) (unknown) IMPRESSION: No (units (unknown) date) acute intracranial unknown) abnormality. (unknown) (no (unknown) (unknown) INDICATIONS: (units (u nknown) date) headache and unknown) blurred vision (unknown) (no (unknown) (unknown) Image quality: (units (unknown) date) Good unknown) (unknown) (no (unknown) (unknown) [facility] (units (unknown) date) unknown) (unknown) (no (unknown) (unknown) Loc: ED (units (unkno wn) date) unknown) (unknown) (no (unknown) (unknown) Noncontrast 4.5 (units (unknown) date) mm thick angled unknown) axial sections acquired from the foramen magnum (unknown) (no (unknown) (unknown) Opacification of (units (unknown) date) the left maxillary unknown) sinus. (unknown) (no (unknown) (unknown) Ordering (units (unkno wn) date) Provider: unknown) Pantera Duncan D.O. (unknown) (no (unknown) (unknown) PROCEDURE: CT (units ( unknown) date) HEAD/BRAIN WO CON unknown) (unknown) (no (unknown) (unknown) Patient: (units (unkno wn) date) Nguyen Tracey unknown) MR#: [id number] (unknown) (no (unknown) (unknown) Procedure: CT (units ( unknown) date) head/brain wo con unknown) (unknown) (no (unknown) (unknown) Signed (units (unkno wn) date) unknown) (unknown) (no (unknown) (unknown) TECHNIQUE: (units (unk nown) date) unknown) (unknown) (no (unknown) (unknown) Volume: Mild (units (u nknown) date) volume loss unknown) (unknown) (no (unknown) (unknown) following (units (unkn own) date) unknown) (unknown) (no (unknown) (unknown) maintained. (units (un known) date) unknown) (unknown) (no (unknown) (unknown) patient (units (unkno wn) date) unknown) (unknown) (no (unknown) (unknown) size. (units (unkno wn) date) unknown) (unknown) (no (unknown) (unknown) to the (units (unkno wn) date) unknown) (unknown) (no (unknown) (unknown) vertex, with (units (u nknown) date) coronal and unknown) sagittal reformats. For radiation dose reduction, the (unknown) (no (unknown) (unknown) was used: (units (unkn own) date) automated exposure unknown) control, adjustment of mA and/or kV according to Result panel 369 (unknown) (no (unknown) (unknown) (no value) (units (unk nown) date) unknown) (unknown) (no (unknown) (unknown) [id number] (units (unkno wn) date) unknown) (unknown) (no (unknown) (unknown) 10/23/22 (units (unkno wn) date) unknown) (unknown) (no (unknown) (unknown) [address] [place] [id number] (units (unknown) date) unknown) (unknown) (no (unknown) (unknown) ACAs: Normal and (units (unknown) date) symmetric unknown) (unknown) (no (unknown) (unknown) AComm: No aneurysm (units (unknown) date) unknown) (unknown) (no (unknown) (unknown) Accession Number: (units (unknown) date) [id number] unknown) (unknown) (no (unknown) (unknown) After the (units (unkn own) date) administration of unknown) intravenous contrast, 1 mm thick sections acquired (unknown) (no (unknown) (unknown) Age/Sex: 62 / F (units (unknown) date) Date of Service: unknown) (unknown) (no (unknown) (unknown) [place], [place] (units ( unknown) date) [id number] unknown) (unknown) (no (unknown) (unknown) Anterior (units (unkno wn) date) circulation: unknown) (unknown) (no (unknown) (unknown) Aortic arch and (units (unknown) date) subclavian unknown) arteries: Normal flow, no aneurysm. (unknown) (no (unknown) (unknown) Approved by: Bart (units (unknown) date) Fausto Cohen on unknown) 10/23/2022 at 11:40 (unknown) (no (unknown) (unknown) Basilar artery: (units (unknown) date) Unremarkable unknown) (unknown) (no (unknown) (unknown) Bones: No acute or (units (unknown) date) suspicious unknown) abnormality. Left maxillary sinus opacification. (unknown) (no (unknown) (unknown) CCAs: No stenosis, (units (unknown) date) occlusion, or unknown) aneurysm. (unknown) (no (unknown) (unknown) COMPARISON: [place] (units (unknown) date) [facility], CT, CT unknown) ANGIO HEAD AND NECK, 07/19/2022, 15:56. (unknown) (no (unknown) (unknown) CT Scan Report (units (unknown) date) unknown) (unknown) (no (unknown) (unknown) Consider MRI to (units (unknown) date) evaluate the unknown) parenchyma if necessary. (unknown) (no (unknown) (unknown) : 1960 (units (unknown) date) Acct:[id number] unknown) (unknown) (no (unknown) (unknown) Dictated by: Bart (units (unknown) date) Fausto Cohen on unknown) 10/23/2022 at 11:32 (unknown) (no (unknown) (unknown) Dominance: (units (unk nown) date) Slightly left unknown) dominant (unknown) (no (unknown) (unknown) ECAs: Origins are (units (unknown) date) patent. unknown) (unknown) (no (unknown) (unknown) FINDINGS: (units (unkn own) date) unknown) (unknown) (no (unknown) (unknown) ICA origins (by (units (unknown) date) NASCET criteria): unknown) No hemodynamically significant narrowing. (unknown) (no (unknown) (unknown) ICAs: No stenosis, (units (unknown) date) occlusion or unknown) aneurysm. (unknown) (no (unknown) (unknown) ICAs: Normal and (units (unknown) date) symmetric unknown) (unknown) (no (unknown) (unknown) IMPRESSION: No (units (unknown) date) large vessel unknown) occlusion or high-grade stenosis. However, there (unknown) (no (unknown) (unknown) INDICATIONS: (units (u nknown) date) Sudden-onset unknown) headache (unknown) (no (unknown) (unknown) Image quality: (units (unknown) date) Good unknown) (unknown) (no (unknown) (unknown) [facility] (units (unknown) date) unknown) (unknown) (no (unknown) (unknown) Left maxillary (units (unknown) date) sinus and right unknown) mastoid opacification. (unknown) (no (unknown) (unknown) Loc: ED (units (unkno wn) date) unknown) (unknown) (no (unknown) (unknown) Lung apices: No (units (unknown) date) pneumothorax unknown) (unknown) (no (unknown) (unknown) MCAs: Normal and (units (unknown) date) symmetric unknown) (unknown) (no (unknown) (unknown) NECK ANGIOGRAPHY (units (unknown) date) unknown) (unknown) (no (unknown) (unknown) Of note, there are (units (unknown) date) mild multifocal unknown) areas of narrowing in the intracranial (unknown) (no (unknown) (unknown) Ordering Provider: (units (unknown) date) Pantera Duncan D.O. unknown) (unknown) (no (unknown) (unknown) rn telemetry: Unremarkable (units (unknown) date) unknown) (unknown) (no (unknown) (unknown) PComms: No (units (unk nown) date) aneurysm unknown) (unknown) (no (unknown) (unknown) PROCEDURE: CT (units ( unknown) date) ANGIO HEAD AND NECK unknown) (unknown) (no (unknown) (unknown) Patient: (units (unkno wn) date) Nguyen Tracey K unknown) MR#: [id number] (unknown) (no (unknown) (unknown) Posterior (units (unkn own) date) circulation: unknown) (unknown) (no (unknown) (unknown) Procedure: CT (units ( unknown) date) angio head and neck unknown) (unknown) (no (unknown) (unknown) Right (units (unkno wn) date) unknown) (unknown) (no (unknown) (unknown) Signed (units (unkno wn) date) unknown) (unknown) (no (unknown) (unknown) Soft tissues: No (units (unknown) date) significant mass, unknown) aneurysm, or lymphadenopathy (unknown) (no (unknown) (unknown) TECHNIQUE: (units (unk nown) date) unknown) (unknown) (no (unknown) (unknown) Venous sinuses: (units (unknown) date) patent unknown) (unknown) (no (unknown) (unknown) Vertebral (units (unkn own) date) arteries: No unknown) stenosis or occlusion. No aneurysm. (unknown) (no (unknown) (unknown) Vertebral (units (unkn own) date) arteries: unknown) Unremarkable (unknown) (no (unknown) (unknown) according to (units (u nknown) date) unknown) (unknown) (no (unknown) (unknown) acquired of the (units (unknown) date) unknown) (unknown) (no (unknown) (unknown) aortic arch (units (un known) date) through the [place] unknown) of [place]. Post-contrast 4.5 mm thick sections (unknown) (no (unknown) (unknown) are subtle (units (unk nown) date) unknown) (unknown) (no (unknown) (unknown) central (units (unkno wn) date) intracranial unknown) vasculature and neck separately. For radiation dose (unknown) (no (unknown) (unknown) context. 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 This is marked on the (unknown) (no (unknown) (unknown) from the (units (unkno wn) date) unknown) (unknown) (no (unknown) (unknown) headache. (units (unkn own) date) Differential unknown) includes vasculitis. Please correlate with clinical (unknown) (no (unknown) (unknown) images. (units (unkno wn) date) unknown) (unknown) (no (unknown) (unknown) mastoid effusion. (units (unknown) date) unknown) (unknown) (no (unknown) (unknown) maximum-intensity- (units (unknown) date) projection (MIP) unknown) and/or volume rendering reformats were (unknown) (no (unknown) (unknown) montage (units (unkno wn) date) unknown) (unknown) (no (unknown) (unknown) multifocal areas (units (unknown) date) of intracranial unknown) arterial narrowing, that can sometimes be seen (unknown) (no (unknown) (unknown) of (units (unkno wn) date) unknown) (unknown) (no (unknown) (unknown) patient size. (units ( unknown) date) unknown) (unknown) (no (unknown) (unknown) re-acquired from (units (unknown) date) the foramen magnum unknown) to the vertex. 3-dimensional (unknown) (no (unknown) (unknown) reduction, the (units (unknown) date) unknown) (unknown) (no (unknown) (unknown) then (units (unkno wn) date) unknown) (unknown) (no (unknown) (unknown) vasculature, (units (u nknown) date) unknown) (unknown) (no (unknown) (unknown) with (units (unkno wn) date) unknown) Result panel 370 (unknown) (no (unknown) (unknown) (no value) (units (unk nown) date) unknown) (unknown) (no (unknown) (unknown) (09/06/20) (units (unk nown) date) unknown) (unknown) (no (unknown) (unknown) (Trulicity) (units (un known) date) unknown) (unknown) (no (unknown) (unknown) 10/23/22 10:45 (units (unknown) date) unknown) (unknown) (no (unknown) (unknown) 10/23/22 10:52 (units (unknown) date) unknown) (unknown) (no (unknown) (unknown) 10/23/22 (units (unkno wn) date) unknown) (unknown) (no (unknown) (unknown) [id number] (units (unkno wn) date) unknown) (unknown) (no (unknown) (unknown) 1.5 mg SUBCUT (units ( unknown) date) QWEEK unknown) (unknown) (no (unknown) (unknown) 10 mg PO QDAY (units ( unknown) date) Qty: 0 unknown) (unknown) (no (unknown) (unknown) 10:46 (units (unkno wn) date) unknown) (unknown) (no (unknown) (unknown) 20 mg PO DAILY (units (unknown) date) unknown) (unknown) (no (unknown) (unknown) 25 mg PO BID (units (u nknown) date) unknown) (unknown) (no (unknown) (unknown) 35 unit SUBCUT (units (unknown) date) QPM unknown) (unknown) (no (unknown) (unknown) 40 mg PO DAILY (units (unknown) date) unknown) (unknown) (no (unknown) (unknown) 500 mg PO BID (units ( unknown) date) unknown) (unknown) (no (unknown) (unknown) 75 mg PO HS Qty: (units (unknown) date) 0 unknown) (unknown) (no (unknown) (unknown) 81 mg PO DAILY (units (unknown) date) unknown) (unknown) (no (unknown) (unknown) Age/Sex: 62 / F (units (unknown) date) unknown) (unknown) (no (unknown) (unknown) Allergies (units (unkn own) date) unknown) (unknown) (no (unknown) (unknown) Allergy/AdvReac (units (unknown) date) Type Severity unknown) Reaction Status Date / Time (unknown) (no (unknown) (unknown) Bedside Urine (units ( unknown) date) Bilirubin - unknown) Negative (unknown) (no (unknown) (unknown) Bedside Urine (units ( unknown) date) Glucose 100 mg/dl unknown) (unknown) (no (unknown) (unknown) Bedside Urine (units ( unknown) date) Ketone - Negative unknown) (unknown) (no (unknown) (unknown) Bedside Urine (units ( unknown) date) Leukocytes - unknown) Negative (unknown) (no (unknown) (unknown) Bedside Urine (units ( unknown) date) Nitrite - unknown) Negative (unknown) (no (unknown) (unknown) Bedside Urine (units ( unknown) date) Occult Blood - unknown) Negative (unknown) (no (unknown) (unknown) Bedside Urine (units ( unknown) date) Protein - unknown) Negative (unknown) (no (unknown) (unknown) Bedside Urine (units ( unknown) date) Urobilinogen - unknown) Negative (unknown) (no (unknown) (unknown) Bedside Urine pH (units (unknown) date) 6.0 unknown) (unknown) (no (unknown) (unknown) Blood Pressure (units (unknown) date) 165/84 H 10/23/22 unknown) 10:46 (unknown) (no (unknown) (unknown) Blood Pressure (units (unknown) date) 165/84 H unknown) (unknown) (no (unknown) (unknown) CT angio head (units ( unknown) date) and neck Stat unknown) (unknown) (no (unknown) (unknown) CT head/brain wo (units (unknown) date) con Stat unknown) (unknown) (no (unknown) (unknown) Chief complaint: (units (unknown) date) Head Injury unknown) (unknown) (no (unknown) (unknown) Complete Blood (units (unknown) date) Count AUTO DIFF unknown) Stat (unknown) (no (unknown) (unknown) Comprehensive (units ( unknown) date) Metabolic Panel unknown) Stat (unknown) (no (unknown) (unknown) Course (units (unkno wn) date) unknown) (unknown) (no (unknown) (unknown) : 1960 (units (unknown) date) Acct:[id number] unknown) (unknown) (no (unknown) (unknown) Date of Service: (units (unknown) date) 10/23/22 unknown) (unknown) (no (unknown) (unknown) Departure (units (unkn own) date) unknown) (unknown) (no (unknown) (unknown) Diabetes (units (unkno wn) date) unknown) (unknown) (no (unknown) (unknown) Discharge Plan (units (unknown) date) unknown) (unknown) (no (unknown) (unknown) ED Orders (units (unkn own) date) unknown) (unknown) (no (unknown) (unknown) EKG-12 Lead Stat (units (unknown) date) unknown) (unknown) (no (unknown) (unknown) ER Physician: (units ( unknown) date) Pantera Duncan unknown) D.O. (unknown) (no (unknown) (unknown) Emergency Report (units (unknown) date) unknown) (unknown) (no (unknown) (unknown) Esterase (units (unkno wn) date) unknown) (unknown) (no (unknown) (unknown) Exam (units (unkno wn) date) unknown) (unknown) (no (unknown) (unknown) Family History (units (unknown) date) (Reviewed unknown) 07/12/22 @ 12:19 by Jhonny Tucker MD) (unknown) (no (unknown) (unknown) Father (units (unkno wn) date) Esophageal cancer unknown) (unknown) (no (unknown) (unknown) GERD (units (unkno wn) date) (gastroesophageal unknown) reflux disease) (unknown) (no (unknown) (unknown) General (units (unkno wn) date) unknown) (unknown) (no (unknown) (unknown) H/O knee surgery (units (unknown) date) (-1998) unknown) (unknown) (no (unknown) (unknown) H/O tubal (units (unkn own) date) ligation unknown) (-05/1995) (unknown) (no (unknown) (unknown) HLD (units (unkno wn) date) (hyperlipidemia) unknown) (unknown) (no (unknown) (unknown) HPI - Head (units (unk nown) date) Injury unknown) (unknown) (no (unknown) (unknown) HTN (units (unkno wn) date) (hypertension) unknown) (unknown) (no (unknown) (unknown) History of (units (unk nown) date) endometrial unknown) ablation (-2004) (unknown) (no (unknown) (unknown) History of (units (unk nown) date) surgery unknown) (12/15/20) (unknown) (no (unknown) (unknown) History of total (units (unknown) date) abdominal unknown) hysterectomy and bilateral salpingo-oophorec he (unknown) (no (unknown) (unknown) Home Medications (units (unknown) date) unknown) (unknown) (no (unknown) (unknown) Hx of (units (unkno wn) date) appendectomy unknown) (unknown) (no (unknown) (unknown) Hx of (units (unkno wn) date) colonoscopy unknown) (12/21/21) (unknown) (no (unknown) (unknown) Hx of (units (unkno wn) date) tonsillectomy unknown) () (unknown) (no (unknown) (unknown) Initial Vital (units ( unknown) date) Signs unknown) (unknown) (no (unknown) (unknown) Initial Vital (units ( unknown) date) Signs: unknown) (unknown) (no (unknown) (unknown) [facility] (units (unknown) date) [address] unknown) [place] [address] (unknown) (no (unknown) (unknown) Lab Data (units (unkno wn) date) unknown) (unknown) (no (unknown) (unknown) Labs: (units (unkno wn) date) unknown) (unknown) (no (unknown) (unknown) Lipase Stat (units (un known) date) unknown) (unknown) (no (unknown) (unknown) MDM - Head (units (unk nown) date) Injury unknown) (unknown) (no (unknown) (unknown) Medical History (units (unknown) date) (Reviewed unknown) 07/12/22 @ 12:19 by Jhonny Tucker MD) (unknown) (no (unknown) (unknown) Medication (units (unk nown) date) Instructions unknown) Recorded Confirmed (unknown) (no (unknown) (unknown) Mode of arrival: (units (unknown) date) Ambulatory unknown) (unknown) (no (unknown) (unknown) Mother Cancer (units ( unknown) date) unknown) (unknown) (no (unknown) (unknown) No Action (units (unkn own) date) unknown) (unknown) (no (unknown) (unknown) No Known Drug (units ( unknown) date) Allergies Allergy unknown) Verified 10/23/22 10:45 (unknown) (no (unknown) (unknown) Ordered: (units (unkno wn) date) unknown) (unknown) (no (unknown) (unknown) Orders (units (unkno wn) date) unknown) (unknown) (no (unknown) (unknown) Oxygen Delivery (units (unknown) date) Method 10/23/22 unknown) 10:46 (unknown) (no (unknown) (unknown) Oxygen Delivery (units (unknown) date) Method Room Air unknown) (unknown) (no (unknown) (unknown) Patient History (units (unknown) date) unknown) (unknown) (no (unknown) (unknown) Patient: (units (unkno wn) date) Nguyen Tracey unknown) MR#: [id number] (unknown) (no (unknown) (unknown) Prescriptions: (units (unknown) date) unknown) (unknown) (no (unknown) (unknown) Provider,Pablo (units (unknown) date) LORI [Primary Care unknown) Provider] (unknown) (no (unknown) (unknown) Pulse Oximetry (units (unknown) date) 97 10/23/22 10:46 unknown) (unknown) (no (unknown) (unknown) Pulse Oximetry (units (unknown) date) 97 unknown) (unknown) (no (unknown) (unknown) Pulse Rate 104 H (units (unknown) date) 10/23/22 10:46 unknown) (unknown) (no (unknown) (unknown) Pulse Rate 104 H (units (unknown) date) unknown) (unknown) (no (unknown) (unknown) Referrals: (units (unk nown) date) unknown) (unknown) (no (unknown) (unknown) Related Data (units (u nknown) date) unknown) (unknown) (no (unknown) (unknown) Respiratory Rate (units (unknown) date) 18 10/23/22 10:46 unknown) (unknown) (no (unknown) (unknown) Respiratory Rate (units (unknown) date) 18 unknown) (unknown) (no (unknown) (unknown) Rx Instructions: (units (unknown) date) unknown) (unknown) (no (unknown) (unknown) Signed By: (units (unk nown) date) unknown) (unknown) (no (unknown) (unknown) Sister Breast (units ( unknown) date) cancer unknown) (unknown) (no (unknown) (unknown) Sister Colon (units (u nknown) date) cancer unknown) (unknown) (no (unknown) (unknown) Smoking Status: (units (unknown) date) Never smoker unknown) (unknown) (no (unknown) (unknown) Social History (units (unknown) date) (Reviewed unknown) 07/11/22 @ 10:47 by Carissa Escobedo DO) (unknown) (no (unknown) (unknown) Source: patient (units (unknown) date) unknown) (unknown) (no (unknown) (unknown) Stated (units (unkno wn) date) complaint: back unknown) of head pain + now everything is numb (unknown) (no (unknown) (unknown) Substance Use (units ( unknown) date) Type: does not unknown) use (unknown) (no (unknown) (unknown) Surgical History (units (unknown) date) (Reviewed unknown) 07/12/22 @ 12:19 by Jhonny Tucker MD) (unknown) (no (unknown) (unknown) Time Seen by (units (u nknown) date) Provider: unknown) 10/23/22 10:45 (unknown) (no (unknown) (unknown) Trulicity 1.5 (units ( unknown) date) mg/0.5 mL Pen unknown) Injector (unknown) (no (unknown) (unknown) Urine Dip (units (unkn own) date) unknown) (unknown) (no (unknown) (unknown) Urine Specific (units (unknown) date) [place] 1.005 unknown) (unknown) (no (unknown) (unknown) Vital Signs - 8 (units (unknown) date) hr unknown) (unknown) (no (unknown) (unknown) Vital Signs (units (un known) date) unknown) (unknown) (no (unknown) (unknown) Vital signs: (units (u nknown) date) unknown) (unknown) (no (unknown) (unknown) alcohol intake (units (unknown) date) frequency: unknown) holidays/special occasions only (unknown) (no (unknown) (unknown) alcohol intake: (units (unknown) date) former unknown) (unknown) (no (unknown) (unknown) amitriptyline 75 (units (unknown) date) MG tablet unknown) (unknown) (no (unknown) (unknown) amitriptyline 75 (units (unknown) date) mg tablet 75 mg unknown) PO HS ##0 02/09/11 09/03/22 (unknown) (no (unknown) (unknown) aspirin 81 mg (units ( unknown) date) tablet,delayed 81 unknown) mg PO DAILY 12/21/21 09/03/22 (unknown) (no (unknown) (unknown) aspirin 81 mg (units ( unknown) date) tablet,delayed unknown) release (DR/EC) (unknown) (no (unknown) (unknown) atorvastatin 40 (units (unknown) date) mg Tablet unknown) (unknown) (no (unknown) (unknown) atorvastatin 40 (units (unknown) date) mg tablet 40 mg unknown) PO DAILY 11/27/21 09/03/22 (unknown) (no (unknown) (unknown) dulaglutide 1.5 (units (unknown) date) mg/0.5 mL 1.5 mg unknown) SUBCUT QWEEK 11/27/21 09/03/22 (unknown) (no (unknown) (unknown) household (units (unkn own) date) members: spouse, unknown) family and children (unknown) (no (unknown) (unknown) insulin glargine (units (unknown) date) 100 unit/mL 35 unknown) unit SUBCUT QPM 11/27/21 09/03/22 (unknown) (no (unknown) (unknown) insulin glargine (units (unknown) date) 100 unit/mL unknown) Cartridge (unknown) (no (unknown) (unknown) lisinopril 20 MG (units (unknown) date) tablet unknown) (unknown) (no (unknown) (unknown) lisinopril 20 mg (units (unknown) date) tablet 10 mg PO unknown) QDAY ##0 05/20/11 12/12/22 (unknown) (no (unknown) (unknown) metformin 500 mg (units (unknown) date) Tablet unknown) (unknown) (no (unknown) (unknown) metformin 500 mg (units (unknown) date) tablet 500 mg PO unknown) BID 11/27/21 09/03/22 (unknown) (no (unknown) (unknown) omeprazole 20 mg (units (unknown) date) capsule,delayed unknown) 20 mg PO DAILY 01/09/22 09/03/22 (unknown) (no (unknown) (unknown) omeprazole 20 mg (units (unknown) date) capsule,delayed unknown) release(DR/EC) (unknown) (no (unknown) (unknown) release (units (unkno wn) date) unknown) (unknown) (no (unknown) (unknown) spironolactone (units (unknown) date) 25 mg Tablet unknown) (unknown) (no (unknown) (unknown) spironolactone (units (unknown) date) 25 mg tablet 25 unknown) mg PO BID 11/27/21 09/03/22 (unknown) (no (unknown) (unknown) subcutaneous (units (u nknown) date) cartridge unknown) (unknown) (no (unknown) (unknown) subcutaneous pen (units (unknown) date) injector unknown) (unknown) (no (unknown) (unknown) substance use (units ( unknown) date) type: does not unknown) use (unknown) (no (unknown) (unknown) take on sundays (units (unknown) date) unknown) Result panel 371 (unknown) (no (unknown) (unknown) (no value) (units (unk nown) date) unknown) (unknown) (no (unknown) (unknown) (09/06/20) (units (unk nown) date) unknown) (unknown) (no (unknown) (unknown) (Trulicity) (units (un known) date) unknown) (unknown) (no (unknown) (unknown) 10/23/22 10:45 (units (unknown) date) unknown) (unknown) (no (unknown) (unknown) 10/23/22 10:52 (units (unknown) date) unknown) (unknown) (no (unknown) (unknown) 10/23/22 (units (unkno wn) date) unknown) (unknown) (no (unknown) (unknown) [id number] (units (unkno wn) date) unknown) (unknown) (no (unknown) (unknown) 1.5 mg SUBCUT (units ( unknown) date) QWEEK unknown) (unknown) (no (unknown) (unknown) 10 mg PO QDAY Qty: (units (unknown) date) 0 unknown) (unknown) (no (unknown) (unknown) 10:46 (units (unkno wn) date) unknown) (unknown) (no (unknown) (unknown) [address] (units (unknown) date) unknown) (unknown) (no (unknown) (unknown) 20 mg PO DAILY (units (unknown) date) unknown) (unknown) (no (unknown) (unknown) 25 mg PO BID (units (u nknown) date) unknown) (unknown) (no (unknown) (unknown) 35 unit SUBCUT QPM (units (unknown) date) unknown) (unknown) (no (unknown) (unknown) 40 mg PO DAILY (units (unknown) date) unknown) (unknown) (no (unknown) (unknown) 500 mg PO BID (units ( unknown) date) unknown) (unknown) (no (unknown) (unknown) 75 mg PO HS Qty: 0 (units (unknown) date) unknown) (unknown) (no (unknown) (unknown) 81 mg PO DAILY (units (unknown) date) unknown) (unknown) (no (unknown) (unknown) ? (units (unkno wn) date) unknown) (unknown) (no (unknown) (unknown) ACAs: Normal and (units (unknown) date) symmetric unknown) (unknown) (no (unknown) (unknown) AComm: No aneurysm (units (unknown) date) unknown) (unknown) (no (unknown) (unknown) Accession Number: (units (unknown) date) [id number] ?? unknown) (unknown) (no (unknown) (unknown) Accession Number: (units (unknown) date) [id number] ?? unknown) (unknown) (no (unknown) (unknown) Acct:[id number] (units (unknown) date) unknown) (unknown) (no (unknown) (unknown) After the (units (unkn own) date) administration of unknown) intravenous contrast, 1 mm thick sections acquired (unknown) (no (unknown) (unknown) Age/Sex: 62 / F (units (unknown) date) unknown) (unknown) (no (unknown) (unknown) Allergies (units (unkn own) date) unknown) (unknown) (no (unknown) (unknown) Allergy/AdvReac (units (unknown) date) Type Severity unknown) Reaction Status Date / Time (unknown) (no (unknown) (unknown) [place], [place] (units ( unknown) date) [id number] unknown) (unknown) (no (unknown) (unknown) Anterior (units (unkno wn) date) circulation: unknown) (unknown) (no (unknown) (unknown) Aortic arch and (units (unknown) date) subclavian unknown) arteries: Normal flow, no aneurysm. (unknown) (no (unknown) (unknown) Appearance: (units (un known) date) grossly normal and unknown) well kempt (unknown) (no (unknown) (unknown) Approved by: Bart (units (unknown) date) Fausto Cohen on unknown) 10/23/2022 at 11:32?? (unknown) (no (unknown) (unknown) Approved by: Bart (units (unknown) date) Fausto Cohen on unknown) 10/23/2022 at 11:40?? (unknown) (no (unknown) (unknown) Attestation: I (units (unknown) date) personally reviewed unknown) and interpreted this ECG as follows: (unknown) (no (unknown) (unknown) Attestation: I (units (unknown) date) reviewed the unknown) patient's lab results. (unknown) (no (unknown) (unknown) Attestation: I (units (unknown) date) reviewed the unknown) patient's medical records. (unknown) (no (unknown) (unknown) Auscultation: (units ( unknown) date) clear to unknown) auscultation bilaterally (unknown) (no (unknown) (unknown) Basilar artery: (units (unknown) date) Unremarkable unknown) (unknown) (no (unknown) (unknown) Bedside Urine (units ( unknown) date) Bilirubin - unknown) Negative (unknown) (no (unknown) (unknown) Bedside Urine (units ( unknown) date) Glucose 100 mg/dl unknown) (unknown) (no (unknown) (unknown) Bedside Urine (units ( unknown) date) Ketone - Negative unknown) (unknown) (no (unknown) (unknown) Bedside Urine (units ( unknown) date) Leukocytes - unknown) Negative (unknown) (no (unknown) (unknown) Bedside Urine (units ( unknown) date) Nitrite - Negative unknown) (unknown) (no (unknown) (unknown) Bedside Urine (units ( unknown) date) Occult Blood - unknown) Negative (unknown) (no (unknown) (unknown) Bedside Urine (units ( unknown) date) Protein - Negative unknown) (unknown) (no (unknown) (unknown) Bedside Urine (units ( unknown) date) Urobilinogen - unknown) Negative (unknown) (no (unknown) (unknown) Bedside Urine pH (units (unknown) date) 6.0 unknown) (unknown) (no (unknown) (unknown) Blood Pressure (units (unknown) date) 165/84 H 10/23/22 unknown) 10:46 (unknown) (no (unknown) (unknown) Blood Pressure (units (unknown) date) 165/84 H unknown) (unknown) (no (unknown) (unknown) Bones: No acute or (units (unknown) date) suspicious unknown) abnormality.? Left maxillary sinus opacification.? (unknown) (no (unknown) (unknown) Brain: No (units (unkn own) date) intracranial unknown) hemorrhage. Winters-white differentiation is grossly (unknown) (no (unknown) (unknown) CCAs: No stenosis, (units (unknown) date) occlusion, or unknown) aneurysm. (unknown) (no (unknown) (unknown) COMPARISON:? (units (u nknown) date) [facility], unknown) CT, CT ANGIO HEAD AND NECK, 07/19/2022, 15:56. (unknown) (no (unknown) (unknown) COMPARISON:? None. (units (unknown) date) unknown) (unknown) (no (unknown) (unknown) CSF spaces: Basal (units (unknown) date) cisterns are unknown) patent. Lateral ventricles are symmetric. (unknown) (no (unknown) (unknown) CT Scan Report (units (unknown) date) unknown) (unknown) (no (unknown) (unknown) CT angio head and (units (unknown) date) neck Stat unknown) (unknown) (no (unknown) (unknown) CT head/brain wo (units (unknown) date) con Stat unknown) (unknown) (no (unknown) (unknown) CT scan - head: (units (unknown) date) unknown) (unknown) (no (unknown) (unknown) CTA - brain/neck: (units (unknown) date) unknown) (unknown) (no (unknown) (unknown) Cardio (units (unkno wn) date) unknown) (unknown) (no (unknown) (unknown) Chief complaint: (units (unknown) date) Head Injury unknown) (unknown) (no (unknown) (unknown) Complete Blood (units (unknown) date) Count AUTO DIFF unknown) Stat (unknown) (no (unknown) (unknown) Comprehensive (units ( unknown) date) Metabolic Panel unknown) Stat (unknown) (no (unknown) (unknown) Consider MRI to (units (unknown) date) evaluate the unknown) parenchyma if necessary.? (unknown) (no (unknown) (unknown) Const (units (unkno wn) date) unknown) (unknown) (no (unknown) (unknown) Course (units (unkno wn) date) unknown) (unknown) (no (unknown) (unknown) Craniofacial (units (u nknown) date) structures:? There unknown) is opacification of the left maxillary sinus. (unknown) (no (unknown) (unknown) : 1960 (units (unknown) date) Acct:[id number] unknown) (unknown) (no (unknown) (unknown) : 1960 (units (unknown) date) unknown) (unknown) (no (unknown) (unknown) Date of Service: (units (unknown) date) 10/23/22 unknown) (unknown) (no (unknown) (unknown) Departure (units (unkn own) date) unknown) (unknown) (no (unknown) (unknown) Diabetes (units (unkno wn) date) unknown) (unknown) (no (unknown) (unknown) Dictated by: Bart (units (unknown) date) Fausto Cohen on unknown) 10/23/2022 at 11:30 ? ? (unknown) (no (unknown) (unknown) Dictated by: Bart (units (unknown) date) Fausto Cohen on unknown) 10/23/2022 at 11:32 ? ? (unknown) (no (unknown) (unknown) Differential (units (u nknown) date) Diagnosis unknown) (unknown) (no (unknown) (unknown) Differential (units (u nknown) date) diagnosis: Likely unknown) concussion without loss of consciousness, (unknown) (no (unknown) (unknown) Diphenhydramine (units (unknown) date) HCl unknown) (Diphenhydramine 50 Mg/Ml Vial) 25 mg IV NOW ONE (unknown) (no (unknown) (unknown) Discharge Plan (units (unknown) date) unknown) (unknown) (no (unknown) (unknown) Discontinued (units (u nknown) date) Medications unknown) (unknown) (no (unknown) (unknown) Dominance:? (units (un known) date) Slightly left unknown) dominant (unknown) (no (unknown) (unknown) ECAs: Origins are (units (unknown) date) patent. unknown) (unknown) (no (unknown) (unknown) ECG Data (units (unkno wn) date) unknown) (unknown) (no (unknown) (unknown) ED Orders (units (unkn own) date) unknown) (unknown) (no (unknown) (unknown) EKG-12 Lead Stat (units (unknown) date) unknown) (unknown) (no (unknown) (unknown) ER Physician: (units ( unknown) date) Pantera Duncan D.O. unknown) (unknown) (no (unknown) (unknown) Effort + (units (unkno wn) date) Inspection: normal unknown) respiratory effort (unknown) (no (unknown) (unknown) Emergency Report (units (unknown) date) unknown) (unknown) (no (unknown) (unknown) Esterase (units (unkno wn) date) unknown) (unknown) (no (unknown) (unknown) Exam (units (unkno wn) date) unknown) (unknown) (no (unknown) (unknown) Extrem (units (unkno wn) date) unknown) (unknown) (no (unknown) (unknown) Eyes (units (unkno wn) date) unknown) (unknown) (no (unknown) (unknown) FINDINGS:? (units (unk nown) date) unknown) (unknown) (no (unknown) (unknown) Family History (units (unknown) date) (Reviewed 07/12/22 unknown) @ 12:19 by Jhonny Tucker MD) (unknown) (no (unknown) (unknown) Father Esophageal (units (unknown) date) cancer unknown) (unknown) (no (unknown) (unknown) GCS (units (unkno wn) date) unknown) (unknown) (no (unknown) (unknown) GERD (units (unkno wn) date) (gastroesophageal unknown) reflux disease) (unknown) (no (unknown) (unknown) GI (units (unkno wn) date) unknown) (unknown) (no (unknown) (unknown) General (units (unkno wn) date) unknown) (unknown) (no (unknown) (unknown) General: Yes (units (u nknown) date) appearance normal, unknown) both eyes and all related structures (unknown) (no (unknown) (unknown) General: (units (unkno wn) date) cooperative, unknown) comfortable and No ill appearing (unknown) (no (unknown) (unknown) General: normal to (units (unknown) date) inspection, unknown) capillary refill normal and No edema (unknown) (no (unknown) (unknown) General: patient (units (unknown) date) alert, patient unknown) awake, patient oriented x3 and moves all (unknown) (no (unknown) (unknown) [place] coma scale (units (unknown) date) eye opening: unknown) Spontaneous (unknown) (no (unknown) (unknown) [place] coma scale (units (unknown) date) motor response: unknown) Obey commands (unknown) (no (unknown) (unknown) [place] coma scale (units (unknown) date) total score: 15 unknown) (unknown) (no (unknown) (unknown) [place] coma scale (units (unknown) date) verbal response: unknown) Orientated (unknown) (no (unknown) (unknown) H/O knee surgery (units (unknown) date) (-1998) unknown) (unknown) (no (unknown) (unknown) H/O tubal ligation (units (unknown) date) () unknown) (unknown) (no (unknown) (unknown) HENMT (units (unkno wn) date) unknown) (unknown) (no (unknown) (unknown) HLD (units (unkno wn) date) (hyperlipidemia) unknown) (unknown) (no (unknown) (unknown) HPI - Head Injury (units (unknown) date) unknown) (unknown) (no (unknown) (unknown) HPI Narrative: (units (unknown) date) unknown) (unknown) (no (unknown) (unknown) HTN (hypertension) (units (unknown) date) unknown) (unknown) (no (unknown) (unknown) Head: normal to (units (unknown) date) inspection and unknown) normocephalic (unknown) (no (unknown) (unknown) History of Present (units (unknown) date) Illness unknown) (unknown) (no (unknown) (unknown) History of (units (unk nown) date) endometrial unknown) ablation () (unknown) (no (unknown) (unknown) History of surgery (units (unknown) date) (12/15/20) unknown) (unknown) (no (unknown) (unknown) History of total (units (unknown) date) abdominal unknown) hysterectomy and bilateral salpingo-oophorecto my (unknown) (no (unknown) (unknown) Home Medications (units (unknown) date) unknown) (unknown) (no (unknown) (unknown) Hx of appendectomy (units (unknown) date) unknown) (unknown) (no (unknown) (unknown) Hx of colonoscopy (units (unknown) date) (12/21/21) unknown) (unknown) (no (unknown) (unknown) Hx of (units (unkno wn) date) tonsillectomy unknown) () (unknown) (no (unknown) (unknown) ICA origins (by (units (unknown) date) NASCET criteria): unknown) No hemodynamically significant narrowing. (unknown) (no (unknown) (unknown) ICAs: No stenosis, (units (unknown) date) occlusion or unknown) aneurysm. (unknown) (no (unknown) (unknown) ICAs: Normal and (units (unknown) date) symmetric unknown) (unknown) (no (unknown) (unknown) IMPRESSION:? No (units (unknown) date) acute intracranial unknown) abnormality. (unknown) (no (unknown) (unknown) IMPRESSION:? No (units (unknown) date) large vessel unknown) occlusion or high-grade stenosis.? However, there (unknown) (no (unknown) (unknown) INDICATIONS:? (units ( unknown) date) Sudden-onset unknown) headache (unknown) (no (unknown) (unknown) INDICATIONS:? (units ( unknown) date) headache and unknown) blurred vision (unknown) (no (unknown) (unknown) Image quality:? (units (unknown) date) Good unknown) (unknown) (no (unknown) (unknown) Imaging Data (units (u nknown) date) unknown) (unknown) (no (unknown) (unknown) Initial Vital (units ( unknown) date) Signs unknown) (unknown) (no (unknown) (unknown) Initial Vital (units ( unknown) date) Signs: unknown) (unknown) (no (unknown) (unknown) Inspection: normal (units (unknown) date) to inspection unknown) (unknown) (no (unknown) (unknown) Interpretation: (units (unknown) date) unknown) (unknown) (no (unknown) (unknown) [facility] (units (unknown) date) [address] [place] [address] unknown) [place] [address] (unknown) (no (unknown) (unknown) [facility] (units (unknown) date) unknown) (unknown) (no (unknown) (unknown) Lab Data (units (unkno wn) date) unknown) (unknown) (no (unknown) (unknown) Labs: (units (unkno wn) date) unknown) (unknown) (no (unknown) (unknown) Left maxillary (units (unknown) date) sinus and right unknown) mastoid opacification.? (unknown) (no (unknown) (unknown) Limitations: no (units (unknown) date) limitations unknown) (unknown) (no (unknown) (unknown) Lipase Stat (units (un known) date) unknown) (unknown) (no (unknown) (unknown) Loc: ED (units (unkno wn) date) unknown) (unknown) (no (unknown) (unknown) Lung apices: No (units (unknown) date) pneumothorax unknown) (unknown) (no (unknown) (unknown) MCAs: Normal and (units (unknown) date) symmetric unknown) (unknown) (no (unknown) (unknown) MDM - Head Injury (units (unknown) date) unknown) (unknown) (no (unknown) (unknown) MR#: [id number] (units (unknown) date) unknown) (unknown) (no (unknown) (unknown) Medical History (units (unknown) date) (Reviewed 10/23/22 unknown) @ 11:50 by Pantera Duncan DO) (unknown) (no (unknown) (unknown) Medical Records (units (unknown) date) unknown) (unknown) (no (unknown) (unknown) Medication (units (unk nown) date) Instructions unknown) Recorded Confirmed (unknown) (no (unknown) (unknown) Metoclopramide HCl (units (unknown) date) (Metoclopramide 10 unknown) Mg/2 Ml Inj) 10 mg IV NOW ONE (unknown) (no (unknown) (unknown) Mode of arrival: (units (unknown) date) Ambulatory unknown) (unknown) (no (unknown) (unknown) Mother Cancer (units ( unknown) date) unknown) (unknown) (no (unknown) (unknown) NECK ANGIOGRAPHY (units (unknown) date) unknown) (unknown) (no (unknown) (unknown) Neuro (units (unkno wn) date) unknown) (unknown) (no (unknown) (unknown) No Action (units (unkn own) date) unknown) (unknown) (no (unknown) (unknown) No Known Drug (units ( unknown) date) Allergies Allergy unknown) Verified 10/23/22 10:45 (unknown) (no (unknown) (unknown) No ST T twinges (units (unknown) date) unknown) (unknown) (no (unknown) (unknown) Noncontrast 4.5 mm (units (unknown) date) thick angled axial unknown) sections acquired from the foramen magnum (unknown) (no (unknown) (unknown) Normal QRS (units (unk nown) date) unknown) (unknown) (no (unknown) (unknown) Normal QTC (units (unk nown) date) unknown) (unknown) (no (unknown) (unknown) Of note, there are (units (unknown) date) mild multifocal unknown) areas of narrowing in the intracranial (unknown) (no (unknown) (unknown) Opacification of (units (unknown) date) the left maxillary unknown) sinus.? (unknown) (no (unknown) (unknown) Ordered: (units (unkno wn) date) unknown) (unknown) (no (unknown) (unknown) Ordering Provider: (units (unknown) date) Pantera Duncan D.O. unknown) (unknown) (no (unknown) (unknown) Orders (units (unkno wn) date) unknown) (unknown) (no (unknown) (unknown) Oxygen Delivery (units (unknown) date) Method 10/23/22 unknown) 10:46 (unknown) (no (unknown) (unknown) Oxygen Delivery (units (unknown) date) Method Room Air unknown) (unknown) (no (unknown) (unknown) rn telemetry: Unremarkable (units (unknown) date) unknown) (unknown) (no (unknown) (unknown) PComms: No (units (unk nown) date) aneurysm unknown) (unknown) (no (unknown) (unknown) PROCEDURE:? CT (units (unknown) date) ANGIO HEAD AND NECK unknown) (unknown) (no (unknown) (unknown) PROCEDURE:? CT (units (unknown) date) HEAD/BRAIN WO CON unknown) (unknown) (no (unknown) (unknown) Patient History (units (unknown) date) unknown) (unknown) (no (unknown) (unknown) Patient is a (units (u nknown) date) 62-year-old female unknown) who is here for evaluation of a headache. She (unknown) (no (unknown) (unknown) Patient: (units (unkno wn) date) Nguyen Tracey Cristian unknown) MR#: [id number] (unknown) (no (unknown) (unknown) Patient: (units (unkno wn) date) Nguyen Tracey Cristian unknown) (unknown) (no (unknown) (unknown) Posterior (units (unkn own) date) circulation: unknown) (unknown) (no (unknown) (unknown) Prescriptions: (units (unknown) date) unknown) (unknown) (no (unknown) (unknown) Procedure: CT (units ( unknown) date) angio head and neck unknown) (unknown) (no (unknown) (unknown) Procedure: CT (units ( unknown) date) head/brain wo con unknown) (unknown) (no (unknown) (unknown) Provider,Pablo (units (unknown) date) LORI [Primary Care unknown) Provider] (unknown) (no (unknown) (unknown) Psych (units (unkno wn) date) unknown) (unknown) (no (unknown) (unknown) Pulse Oximetry 97 (units (unknown) date) 10/23/22 10:46 unknown) (unknown) (no (unknown) (unknown) Pulse Oximetry 97 (units (unknown) date) unknown) (unknown) (no (unknown) (unknown) Pulse Rate 104 H (units (unknown) date) 10/23/22 10:46 unknown) (unknown) (no (unknown) (unknown) Pulse Rate 104 H (units (unknown) date) unknown) (unknown) (no (unknown) (unknown) ROS Unobtainable: (units (unknown) date) All systems unknown) reviewed + are unremarkable except as noted in HPI (unknown) (no (unknown) (unknown) Radiologist's (units ( unknown) date) Impression: unknown) (unknown) (no (unknown) (unknown) Rate: regular rate (units (unknown) date) unknown) (unknown) (no (unknown) (unknown) Referrals: (units (unk nown) date) unknown) (unknown) (no (unknown) (unknown) Related Data (units (u nknown) date) unknown) (unknown) (no (unknown) (unknown) Resp (units (unkno wn) date) unknown) (unknown) (no (unknown) (unknown) Respiratory Rate (units (unknown) date) 18 10/23/22 10:46 unknown) (unknown) (no (unknown) (unknown) Respiratory Rate (units (unknown) date) 18 unknown) (unknown) (no (unknown) (unknown) Review of Systems (units (unknown) date) unknown) (unknown) (no (unknown) (unknown) Rhythm: regular (units (unknown) date) rhythm unknown) (unknown) (no (unknown) (unknown) Right (units (unkno wn) date) unknown) (unknown) (no (unknown) (unknown) Rx Instructions: (units (unknown) date) unknown) (unknown) (no (unknown) (unknown) Scores (units (unkno wn) date) unknown) (unknown) (no (unknown) (unknown) Sensory Exam: no (units (unknown) date) sensory deficits unknown) noted (unknown) (no (unknown) (unknown) She is also (units (un known) date) complaining of unknown) numbness throughout her body specifically in her (unknown) (no (unknown) (unknown) She states the (units (unknown) date) headache she is unknown) having now is somewhat different. The last (unknown) (no (unknown) (unknown) Signed By: (units (unk nown) date) unknown) (unknown) (no (unknown) (unknown) Signed (units (unkno wn) date) unknown) (unknown) (no (unknown) (unknown) Sinus rhythm (units (u nknown) date) unknown) (unknown) (no (unknown) (unknown) Sister Breast (units ( unknown) date) cancer unknown) (unknown) (no (unknown) (unknown) Sister Colon (units (u nknown) date) cancer unknown) (unknown) (no (unknown) (unknown) Smoking Status: (units (unknown) date) Never smoker unknown) (unknown) (no (unknown) (unknown) Social History (units (unknown) date) (Reviewed 10/23/22 unknown) @ 11:50 by Pantera Duncan DO) (unknown) (no (unknown) (unknown) Soft tissues: No (units (unknown) date) significant mass, unknown) aneurysm, or lymphadenopathy (unknown) (no (unknown) (unknown) Source: patient (units (unknown) date) and family unknown) () (unknown) (no (unknown) (unknown) Speech: speech (units (unknown) date) normal unknown) (unknown) (no (unknown) (unknown) Stated complaint: (units (unknown) date) back of head pain + unknown) now everything is numb (unknown) (no (unknown) (unknown) Stop: 10/23/22 (units (unknown) date) 11:42 unknown) (unknown) (no (unknown) (unknown) Substance Use (units ( unknown) date) Type: does not use unknown) (unknown) (no (unknown) (unknown) Surgical History (units (unknown) date) (Reviewed 07/12/22 unknown) @ 12:19 by Jhonny Tucker MD) (unknown) (no (unknown) (unknown) TECHNIQUE:? (units (un known) date) unknown) (unknown) (no (unknown) (unknown) Time Seen by (units (u nknown) date) Provider: 10/23/22 unknown) 10:45 (unknown) (no (unknown) (unknown) Trulicity 1.5 (units ( unknown) date) mg/0.5 mL Pen unknown) Injector (unknown) (no (unknown) (unknown) Urine Dip (units (unkn own) date) unknown) (unknown) (no (unknown) (unknown) Urine Specific (units (unknown) date) [place] 1.005 unknown) (unknown) (no (unknown) (unknown) Venous sinuses: (units (unknown) date) patent unknown) (unknown) (no (unknown) (unknown) Ventricular rate (units (unknown) date) 95 normal axis unknown) (unknown) (no (unknown) (unknown) Vertebral (units (unkn own) date) arteries: No unknown) stenosis or occlusion. No aneurysm. (unknown) (no (unknown) (unknown) Vertebral (units (unkn own) date) arteries: unknown) Unremarkable (unknown) (no (unknown) (unknown) Vital Signs - 8 hr (units (unknown) date) unknown) (unknown) (no (unknown) (unknown) Vital Signs (units (un known) date) unknown) (unknown) (no (unknown) (unknown) Vital signs: (units (u nknown) date) unknown) (unknown) (no (unknown) (unknown) Volume:? Mild (units ( unknown) date) volume loss unknown) (unknown) (no (unknown) (unknown) according to (units (u nknown) date) unknown) (unknown) (no (unknown) (unknown) acquired of the (units (unknown) date) unknown) (unknown) (no (unknown) (unknown) alcohol intake (units (unknown) date) frequency: unknown) holidays/special occasions only (unknown) (no (unknown) (unknown) alcohol intake: (units (unknown) date) former unknown) (unknown) (no (unknown) (unknown) amitriptyline 75 (units (unknown) date) MG tablet unknown) (unknown) (no (unknown) (unknown) amitriptyline 75 (units (unknown) date) mg tablet 75 mg PO unknown) HS ##0 02/09/11 09/03/22 (unknown) (no (unknown) (unknown) and below (units (unkn own) date) unknown) (unknown) (no (unknown) (unknown) anything for (units (u nknown) date) symptoms prior to unknown) arrival. She reports no trauma. (unknown) (no (unknown) (unknown) aortic arch (units (un known) date) through the [place] unknown) of [place].? Post-contrast 4.5 mm thick sections (unknown) (no (unknown) (unknown) are subtle (units (unk nown) date) unknown) (unknown) (no (unknown) (unknown) aspirin 81 mg (units ( unknown) date) tablet,delayed 81 unknown) mg PO DAILY 12/21/21 09/03/22 (unknown) (no (unknown) (unknown) aspirin 81 mg (units ( unknown) date) tablet,delayed unknown) release (DR/EC) (unknown) (no (unknown) (unknown) atorvastatin 40 mg (units (unknown) date) Tablet unknown) (unknown) (no (unknown) (unknown) atorvastatin 40 mg (units (unknown) date) tablet 40 mg PO unknown) DAILY 11/27/21 09/03/22 (unknown) (no (unknown) (unknown) central (units (unkno wn) date) intracranial unknown) vasculature and neck separately. For radiation dose (unknown) (no (unknown) (unknown) context. (units (unkno wn) date) unknown) (unknown) (no (unknown) (unknown) dulaglutide 1.5 (units (unknown) date) mg/0.5 mL 1.5 mg unknown) SUBCUT QWEEK 11/27/21 09/03/22 (unknown) (no (unknown) (unknown) entities such as (units (unknown) date) reversible cerebral unknown) vasoconstriction syndrome in the context of (unknown) (no (unknown) (unknown) epidural hematoma, (units (unknown) date) closed head injury, unknown) subarachnoid hematoma and other (Mass, (unknown) (no (unknown) (unknown) extremities (units (un known) date) unknown) (unknown) (no (unknown) (unknown) following was (units ( unknown) date) used:? automated unknown) exposure control, adjustment of mA and/or kV (unknown) (no (unknown) (unknown) following (units (unkn own) date) unknown) (unknown) (no (unknown) (unknown) for example in the (units (unknown) date) right M2 branch and unknown) pericallosal TANIA.? This is marked on the (unknown) (no (unknown) (unknown) from the (units (unkno wn) date) unknown) (unknown) (no (unknown) (unknown) headache did start (units (unknown) date) suddenly but it was unknown) only one-sided today's it is both sides. (unknown) (no (unknown) (unknown) headache.? (units (unk nown) date) Differential unknown) includes vasculitis.? Please correlate with clinical (unknown) (no (unknown) (unknown) household members: (units (unknown) date) spouse, family and unknown) children (unknown) (no (unknown) (unknown) images. (units (unkno wn) date) unknown) (unknown) (no (unknown) (unknown) insulin glargine (units (unknown) date) 100 unit/mL 35 unit unknown) SUBCUT QPM 11/27/21 09/03/22 (unknown) (no (unknown) (unknown) insulin glargine (units (unknown) date) 100 unit/mL unknown) Cartridge (unknown) (no (unknown) (unknown) lisinopril 20 MG (units (unknown) date) tablet unknown) (unknown) (no (unknown) (unknown) lisinopril 20 mg (units (unknown) date) tablet 10 mg PO unknown) QDAY ##0 02/09/11 09/03/22 (unknown) (no (unknown) (unknown) lower extremities. (units (unknown) date) She is also having unknown) some photophobia. She is not tried (unknown) (no (unknown) (unknown) maintained. (units (un known) date) unknown) (unknown) (no (unknown) (unknown) mastoid effusion. (units (unknown) date) unknown) (unknown) (no (unknown) (unknown) maximum-intensity- (units (unknown) date) projection (MIP) unknown) and/or volume rendering reformats were (unknown) (no (unknown) (unknown) metformin 500 mg (units (unknown) date) Tablet unknown) (unknown) (no (unknown) (unknown) metformin 500 mg (units (unknown) date) tablet 500 mg PO unknown) BID 11/27/21 09/03/22 (unknown) (no (unknown) (unknown) migraine, venous (units (unknown) date) thrombosis and unknown) others) (unknown) (no (unknown) (unknown) montage (units (unkno wn) date) unknown) (unknown) (no (unknown) (unknown) multifocal areas (units (unknown) date) of intracranial unknown) arterial narrowing, that can sometimes be seen (unknown) (no (unknown) (unknown) omeprazole 20 mg (units (unknown) date) capsule,delayed 20 unknown) mg PO DAILY 01/09/22 09/03/22 (unknown) (no (unknown) (unknown) omeprazole 20 mg (units (unknown) date) capsule,delayed unknown) release(DR/EC) (unknown) (no (unknown) (unknown) past and she was (units (unknown) date) seen in the unknown) emergency department was told that was a migraine. (unknown) (no (unknown) (unknown) patient size.? (units (unknown) date) unknown) (unknown) (no (unknown) (unknown) patient (units (unkno wn) date) unknown) (unknown) (no (unknown) (unknown) re-acquired from (units (unknown) date) the foramen magnum unknown) to the vertex.? 3-dimensional (unknown) (no (unknown) (unknown) reduction, the (units (unknown) date) unknown) (unknown) (no (unknown) (unknown) release (units (unkno wn) date) unknown) (unknown) (no (unknown) (unknown) size.? (units (unkno wn) date) unknown) (unknown) (no (unknown) (unknown) spironolactone 25 (units (unknown) date) mg Tablet unknown) (unknown) (no (unknown) (unknown) spironolactone 25 (units (unknown) date) mg tablet 25 mg PO unknown) BID 11/27/21 09/03/22 (unknown) (no (unknown) (unknown) states that is in (units (unknown) date) the back of her unknown) head. It is both sides. It started when she (unknown) (no (unknown) (unknown) stood up after (units (unknown) date) bending over unknown) pending some dogs. This has happened to her in the (unknown) (no (unknown) (unknown) subcutaneous (units (u nknown) date) cartridge unknown) (unknown) (no (unknown) (unknown) subcutaneous pen (units (unknown) date) injector unknown) (unknown) (no (unknown) (unknown) substance use (units ( unknown) date) type: does not use unknown) (unknown) (no (unknown) (unknown) take on sundays (units (unknown) date) unknown) (unknown) (no (unknown) (unknown) then (units (unkno wn) date) unknown) (unknown) (no (unknown) (unknown) to the (units (unkno wn) date) unknown) (unknown) (no (unknown) (unknown) vasculature, (units (u nknown) date) unknown) (unknown) (no (unknown) (unknown) vertex, with (units (u nknown) date) coronal and unknown) sagittal reformats.? For radiation dose reduction, the (unknown) (no (unknown) (unknown) was used:? (units (unk nown) date) automated exposure unknown) control, adjustment of mA and/or kV according to (unknown) (no (unknown) (unknown) with (units (unkno wn) date) unknown) Result panel 372 (unknown) (no date) (unknown) (unknown) 1.1 % (unkn own) (unknown) (no date) (unknown) (unknown) 1.1 % (unkn own) (unknown) (no date) (unknown) (unknown) 77450 /ul (unkn own) (unknown) (no date) (unknown) (unknown) 13.4 g/dl (unkn own) (unknown) (no date) (unknown) (unknown) 14.1 % (unkn own) (unknown) (no date) (unknown) (unknown) 16.2 x10 3/ul (unkn own) (unknown) (no date) (unknown) (unknown) 16.7 % (unkn own) (unknown) (no date) (unknown) (unknown) 200 /ul (unkn own) (unknown) (no date) (unknown) (unknown) 200 /ul (unkn own) (unknown) (no date) (unknown) (unknown) 26.4 pg (unkn own) (unknown) (no date) (unknown) (unknown) 265 x10 3/ul (unkn own) (unknown) (no date) (unknown) (unknown) 2700 /ul (unkn own) (unknown) (no date) (unknown) (unknown) 3.3 % (unkn own) (unknown) (no date) (unknown) (unknown) 33.3 % (unkn own) (unknown) (no date) (unknown) (unknown) 40.3 % (unkn own) (unknown) (no date) (unknown) (unknown) 5.08 x10 6/ul (unkn own) (unknown) (no date) (unknown) (unknown) 500 /ul (unkn own) (unknown) (no date) (unknown) (unknown) 77.8 % (unkn own) (unknown) (no date) (unknown) (unknown) 79.5 fl (unkn own) Result panel 373 (unknown) (no (unknown) (unknown) (no value) (units (unk nown) date) unknown) (unknown) (no (unknown) (unknown) (09/06/20) (units (unk nown) date) unknown) (unknown) (no (unknown) (unknown) (Trulicity) (units (un known) date) unknown) (unknown) (no (unknown) (unknown) 10/23/22 10:45 (units (unknown) date) unknown) (unknown) (no (unknown) (unknown) 10/23/22 10:52 (units (unknown) date) unknown) (unknown) (no (unknown) (unknown) 10/23/22 13:35 (units (unknown) date) unknown) (unknown) (no (unknown) (unknown) 10/23/22 (units (unkno wn) date) Range/Units unknown) (unknown) (no (unknown) (unknown) 10/23/22 (units (unkno wn) date) unknown) (unknown) (no (unknown) (unknown) [id number] (units (unkno wn) date) unknown) (unknown) (no (unknown) (unknown) 1.5 mg SUBCUT (units ( unknown) date) QWEEK unknown) (unknown) (no (unknown) (unknown) 10 mg PO QDAY Qty: (units (unknown) date) 0 unknown) (unknown) (no (unknown) (unknown) 10:44 10/23/22 (units (unknown) date) unknown) (unknown) (no (unknown) (unknown) 10:46 10/23/22 (units (unknown) date) unknown) (unknown) (no (unknown) (unknown) 11:19 (units (unkno wn) date) unknown) (unknown) (no (unknown) (unknown) 11:21 10/23/22 (units (unknown) date) unknown) (unknown) (no (unknown) (unknown) 11:30 10/23/22 (units (unknown) date) unknown) (unknown) (no (unknown) (unknown) 11:30 (units (unkno wn) date) unknown) (unknown) (no (unknown) (unknown) [address] [place] [id number] (units (unknown) date) unknown) (unknown) (no (unknown) (unknown) 12:00 10/23/22 (units (unknown) date) unknown) (unknown) (no (unknown) (unknown) 12:00 (units (unkno wn) date) unknown) (unknown) (no (unknown) (unknown) 12:30 10/23/22 (units (unknown) date) unknown) (unknown) (no (unknown) (unknown) 13:00 10/23/22 (units (unknown) date) unknown) (unknown) (no (unknown) (unknown) 13:00 (units (unkno wn) date) unknown) (unknown) (no (unknown) (unknown) 13:30 10/23/22 (units (unknown) date) unknown) (unknown) (no (unknown) (unknown) 13:31 10/23/22 (units (unknown) date) unknown) (unknown) (no (unknown) (unknown) 13:31 (units (unkno wn) date) unknown) (unknown) (no (unknown) (unknown) 13:35 (units (unkno wn) date) unknown) (unknown) (no (unknown) (unknown) 13:56 10/23/22 (units (unknown) date) unknown) (unknown) (no (unknown) (unknown) 13:56 (units (unkno wn) date) unknown) (unknown) (no (unknown) (unknown) 14:00 10/23/22 (units (unknown) date) unknown) (unknown) (no (unknown) (unknown) 14:00 (units (unkno wn) date) unknown) (unknown) (no (unknown) (unknown) 20 mg PO DAILY (units (unknown) date) unknown) (unknown) (no (unknown) (unknown) 25 mg PO BID (units (u nknown) date) unknown) (unknown) (no (unknown) (unknown) 35 unit SUBCUT QPM (units (unknown) date) unknown) (unknown) (no (unknown) (unknown) 40 mg PO DAILY (units (unknown) date) unknown) (unknown) (no (unknown) (unknown) 500 mg PO BID (units ( unknown) date) unknown) (unknown) (no (unknown) (unknown) 75 mg PO HS Qty: 0 (units (unknown) date) unknown) (unknown) (no (unknown) (unknown) 81 mg PO DAILY (units (unknown) date) unknown) (unknown) (no (unknown) (unknown) ? (units (unkno wn) date) unknown) (unknown) (no (unknown) (unknown) ACAs: Normal and (units (unknown) date) symmetric unknown) (unknown) (no (unknown) (unknown) AComm: No aneurysm (units (unknown) date) unknown) (unknown) (no (unknown) (unknown) Accession Number: (units (unknown) date) [id number] ?? unknown) (unknown) (no (unknown) (unknown) Accession Number: (units (unknown) date) [id number] ?? unknown) (unknown) (no (unknown) (unknown) Acct:[id number] (units (unknown) date) unknown) (unknown) (no (unknown) (unknown) Activity (units (unkno wn) date) Restrictions/Additi unknown) onal Instructions: (unknown) (no (unknown) (unknown) After the (units (unkn own) date) administration of unknown) intravenous contrast, 1 mm thick sections acquired (unknown) (no (unknown) (unknown) Age/Sex: 62 / F (units (unknown) date) unknown) (unknown) (no (unknown) (unknown) Allergies (units (unkn own) date) unknown) (unknown) (no (unknown) (unknown) Allergy/AdvReac (units (unknown) date) Type Severity unknown) Reaction Status Date / Time (unknown) (no (unknown) (unknown) [place], [place] (units ( unknown) date) [id number] unknown) (unknown) (no (unknown) (unknown) Anterior (units (unkno wn) date) circulation: unknown) (unknown) (no (unknown) (unknown) Aortic arch and (units (unknown) date) subclavian unknown) arteries: Normal flow, no aneurysm. (unknown) (no (unknown) (unknown) Appearance: (units (un known) date) grossly normal and unknown) well kempt (unknown) (no (unknown) (unknown) Approved by: Bart (units (unknown) date) Fausto Cohen on unknown) 10/23/2022 at 11:32?? (unknown) (no (unknown) (unknown) Approved by: Bart (units (unknown) date) Fausto Cohen on unknown) 10/23/2022 at 11:40?? (unknown) (no (unknown) (unknown) Attestation: I (units (unknown) date) personally reviewed unknown) and interpreted this ECG as follows: (unknown) (no (unknown) (unknown) Attestation: I (units (unknown) date) reviewed the unknown) patient's lab results. (unknown) (no (unknown) (unknown) Attestation: I (units (unknown) date) reviewed the unknown) patient's medical records. (unknown) (no (unknown) (unknown) Auscultation: (units ( unknown) date) clear to unknown) auscultation bilaterally (unknown) (no (unknown) (unknown) Basilar artery: (units (unknown) date) Unremarkable unknown) (unknown) (no (unknown) (unknown) Baso # (Auto) 200 (units (unknown) date) H (0-100) /uL unknown) (unknown) (no (unknown) (unknown) Baso % (Auto) 1.1 (units (unknown) date) (0-2) % unknown) (unknown) (no (unknown) (unknown) Bedside Urine (units ( unknown) date) Bilirubin - unknown) Negative (unknown) (no (unknown) (unknown) Bedside Urine (units ( unknown) date) Glucose 100 mg/dl unknown) (unknown) (no (unknown) (unknown) Bedside Urine (units ( unknown) date) Ketone - Negative unknown) (unknown) (no (unknown) (unknown) Bedside Urine (units ( unknown) date) Leukocytes - unknown) Negative (unknown) (no (unknown) (unknown) Bedside Urine (units ( unknown) date) Nitrite - Negative unknown) (unknown) (no (unknown) (unknown) Bedside Urine (units ( unknown) date) Occult Blood - unknown) Negative (unknown) (no (unknown) (unknown) Bedside Urine (units ( unknown) date) Protein - Negative unknown) (unknown) (no (unknown) (unknown) Bedside Urine (units ( unknown) date) Urobilinogen - unknown) Negative (unknown) (no (unknown) (unknown) Bedside Urine pH (units (unknown) date) 6.0 unknown) (unknown) (no (unknown) (unknown) Blood Pressure (units (unknown) date) 130/61 unknown) (unknown) (no (unknown) (unknown) Blood Pressure (units (unknown) date) 136/78 unknown) (unknown) (no (unknown) (unknown) Blood Pressure (units (unknown) date) 140/83 148/77 H unknown) (unknown) (no (unknown) (unknown) Blood Pressure (units (unknown) date) 143/85 H 141/84 H unknown) (unknown) (no (unknown) (unknown) Blood Pressure (units (unknown) date) 151/78 H 142/73 H unknown) (unknown) (no (unknown) (unknown) Blood Pressure (units (unknown) date) 165/84 H unknown) (unknown) (no (unknown) (unknown) Blood Pressure (units (unknown) date) unknown) (unknown) (no (unknown) (unknown) Bones: No acute or (units (unknown) date) suspicious unknown) abnormality.? Left maxillary sinus opacification.? (unknown) (no (unknown) (unknown) Brain: No (units (unkn own) date) intracranial unknown) hemorrhage. Winters-white differentiation is grossly (unknown) (no (unknown) (unknown) CCAs: No stenosis, (units (unknown) date) occlusion, or unknown) aneurysm. (unknown) (no (unknown) (unknown) COMPARISON:? (units (u nknown) date) [facility], unknown) CT, CT ANGIO HEAD AND NECK, 07/19/2022, 15:56. (unknown) (no (unknown) (unknown) COMPARISON:? None. (units (unknown) date) unknown) (unknown) (no (unknown) (unknown) CSF spaces: Basal (units (unknown) date) cisterns are unknown) patent. Lateral ventricles are symmetric. (unknown) (no (unknown) (unknown) CT Scan Report (units (unknown) date) unknown) (unknown) (no (unknown) (unknown) CT angio head and (units (unknown) date) neck Stat unknown) (unknown) (no (unknown) (unknown) CT head/brain wo (units (unknown) date) con Stat unknown) (unknown) (no (unknown) (unknown) CT scan - head: (units (unknown) date) unknown) (unknown) (no (unknown) (unknown) CTA - brain/neck: (units (unknown) date) unknown) (unknown) (no (unknown) (unknown) Cardio (units (unkno wn) date) unknown) (unknown) (no (unknown) (unknown) Chief complaint: (units (unknown) date) Head Injury unknown) (unknown) (no (unknown) (unknown) Clinical (units (unkno wn) date) Impression: unknown) (unknown) (no (unknown) (unknown) Complete Blood (units (unknown) date) Count AUTO DIFF unknown) Stat (unknown) (no (unknown) (unknown) Comprehensive (units ( unknown) date) Metabolic Panel unknown) Stat (unknown) (no (unknown) (unknown) Consider MRI to (units (unknown) date) evaluate the unknown) parenchyma if necessary.? (unknown) (no (unknown) (unknown) Const (units (unkno wn) date) unknown) (unknown) (no (unknown) (unknown) Contact your (units (u nknown) date) primary doctor for unknown) a follow-up. Return to the emergency department (unknown) (no (unknown) (unknown) Course (units (unkno wn) date) unknown) (unknown) (no (unknown) (unknown) Craniofacial (units (u nknown) date) structures:? There unknown) is opacification of the left maxillary sinus. (unknown) (no (unknown) (unknown) : 1960 (units (unknown) date) Acct:[id number] unknown) (unknown) (no (unknown) (unknown) : 1960 (units (unknown) date) unknown) (unknown) (no (unknown) (unknown) Date of Service: (units (unknown) date) 10/23/22 unknown) (unknown) (no (unknown) (unknown) Departure (units (unkn own) date) unknown) (unknown) (no (unknown) (unknown) Diabetes (units (unkno wn) date) unknown) (unknown) (no (unknown) (unknown) Dictated by: Bart (units (unknown) date) Fausto Cohen on unknown) 10/23/2022 at 11:30 ? ? (unknown) (no (unknown) (unknown) Dictated by: Bart (units (unknown) date) Fausto Cohen on unknown) 10/23/2022 at 11:32 ? ? (unknown) (no (unknown) (unknown) Differential (units (u nknown) date) Diagnosis unknown) (unknown) (no (unknown) (unknown) Differential (units (u nknown) date) diagnosis: Likely unknown) concussion without loss of consciousness, (unknown) (no (unknown) (unknown) Diphenhydramine (units (unknown) date) HCl unknown) (Diphenhydramine 50 Mg/Ml Vial) 25 mg IV NOW ONE (unknown) (no (unknown) (unknown) Discharge Plan (units (unknown) date) unknown) (unknown) (no (unknown) (unknown) Discontinued (units (u nknown) date) Medications unknown) (unknown) (no (unknown) (unknown) Documented By: MLM (units (unknown) date) unknown) (unknown) (no (unknown) (unknown) Dominance:? (units (un known) date) Slightly left unknown) dominant (unknown) (no (unknown) (unknown) ECAs: Origins are (units (unknown) date) patent. unknown) (unknown) (no (unknown) (unknown) ECG Data (units (unkno wn) date) unknown) (unknown) (no (unknown) (unknown) ED Orders (units (unkn own) date) unknown) (unknown) (no (unknown) (unknown) EKG-12 Lead Stat (units (unknown) date) unknown) (unknown) (no (unknown) (unknown) ER Physician: (units ( unknown) date) Pantera Duncan D.O. unknown) (unknown) (no (unknown) (unknown) Effort + (units (unkno wn) date) Inspection: normal unknown) respiratory effort (unknown) (no (unknown) (unknown) Emergency Report (units (unknown) date) unknown) (unknown) (no (unknown) (unknown) Eos # (Auto) 200 (units (unknown) date) (0-450) /uL unknown) (unknown) (no (unknown) (unknown) Eos % (Auto) 1.1 L (units (unknown) date) (2-4) % unknown) (unknown) (no (unknown) (unknown) Esterase (units (unkno wn) date) unknown) (unknown) (no (unknown) (unknown) Exam (units (unkno wn) date) unknown) (unknown) (no (unknown) (unknown) Extrem (units (unkno wn) date) unknown) (unknown) (no (unknown) (unknown) Eyes (units (unkno wn) date) unknown) (unknown) (no (unknown) (unknown) FINDINGS:? (units (unk nown) date) unknown) (unknown) (no (unknown) (unknown) Family History (units (unknown) date) (Reviewed 07/12/22 unknown) @ 12:19 by Jhonny Tucker MD) (unknown) (no (unknown) (unknown) Father Esophageal (units (unknown) date) cancer unknown) (unknown) (no (unknown) (unknown) GCS (units (unkno wn) date) unknown) (unknown) (no (unknown) (unknown) GERD (units (unkno wn) date) (gastroesophageal unknown) reflux disease) (unknown) (no (unknown) (unknown) GI (units (unkno wn) date) unknown) (unknown) (no (unknown) (unknown) General (units (unkno wn) date) unknown) (unknown) (no (unknown) (unknown) General: Yes (units (u nknown) date) appearance normal, unknown) both eyes and all related structures (unknown) (no (unknown) (unknown) General: (units (unkno wn) date) cooperative, unknown) comfortable and No ill appearing (unknown) (no (unknown) (unknown) General: normal to (units (unknown) date) inspection, unknown) capillary refill normal and No edema (unknown) (no (unknown) (unknown) General: patient (units (unknown) date) alert, patient unknown) awake, patient oriented x3 and moves all (unknown) (no (unknown) (unknown) [place] coma scale (units (unknown) date) eye opening: unknown) Spontaneous (unknown) (no (unknown) (unknown) [place] coma scale (units (unknown) date) motor response: unknown) Obey commands (unknown) (no (unknown) (unknown) [place] coma scale (units (unknown) date) total score: 15 unknown) (unknown) (no (unknown) (unknown) [place] coma scale (units (unknown) date) verbal response: unknown) Orientated (unknown) (no (unknown) (unknown) H/O knee surgery (units (unknown) date) () unknown) (unknown) (no (unknown) (unknown) H/O tubal ligation (units (unknown) date) () unknown) (unknown) (no (unknown) (unknown) HENMT (units (unkno wn) date) unknown) (unknown) (no (unknown) (unknown) HLD (units (o wn) date) (hyperlipidemia) unknown) (unknown) (no (unknown) (unknown) HPI - Head Injury (units (unknown) date) unknown) (unknown) (no (unknown) (unknown) HPI Narrative: (units (unknown) date) unknown) (unknown) (no (unknown) (unknown) HTN (hypertension) (units (unknown) date) unknown) (unknown) (no (unknown) (unknown) Hct 40.3 (36-46) % (units (unknown) date) unknown) (unknown) (no (unknown) (unknown) Head: normal to (units (unknown) date) inspection and unknown) normocephalic (unknown) (no (unknown) (unknown) Headache (units (unkno wn) date) unknown) (unknown) (no (unknown) (unknown) Hgb 13.4 (units (o wn) date) (12.0-16.0) g/dL unknown) (unknown) (no (unknown) (unknown) History of Present (units (unknown) date) Illness unknown) (unknown) (no (unknown) (unknown) History of (units (unk nown) date) endometrial unknown) ablation (-2004) (unknown) (no (unknown) (unknown) History of surgery (units (unknown) date) (12/15/20) unknown) (unknown) (no (unknown) (unknown) History of total (units (unknown) date) abdominal unknown) hysterectomy and bilateral salpingo-oophorecto my (unknown) (no (unknown) (unknown) Home Medications (units (unknown) date) unknown) (unknown) (no (unknown) (unknown) Hx of appendectomy (units (unknown) date) unknown) (unknown) (no (unknown) (unknown) Hx of colonoscopy (units (unknown) date) (12/21/21) unknown) (unknown) (no (unknown) (unknown) Hx of (units (unkno wn) date) tonsillectomy unknown) () (unknown) (no (unknown) (unknown) ICA origins (by (units (unknown) date) NASCET criteria): unknown) No hemodynamically significant narrowing. (unknown) (no (unknown) (unknown) ICAs: No stenosis, (units (unknown) date) occlusion or unknown) aneurysm. (unknown) (no (unknown) (unknown) ICAs: Normal and (units (unknown) date) symmetric unknown) (unknown) (no (unknown) (unknown) IMPRESSION:? No (units (unknown) date) acute intracranial unknown) abnormality. (unknown) (no (unknown) (unknown) IMPRESSION:? No (units (unknown) date) large vessel unknown) occlusion or high-grade stenosis.? However, there (unknown) (no (unknown) (unknown) INDICATIONS:? (units ( unknown) date) Sudden-onset unknown) headache (unknown) (no (unknown) (unknown) INDICATIONS:? (units ( unknown) date) headache and unknown) blurred vision (unknown) (no (unknown) (unknown) Image quality:? (units (unknown) date) Good unknown) (unknown) (no (unknown) (unknown) Imaging Data (units (u nknown) date) unknown) (unknown) (no (unknown) (unknown) Initial Vital (units ( unknown) date) Signs unknown) (unknown) (no (unknown) (unknown) Initial Vital (units ( unknown) date) Signs: unknown) (unknown) (no (unknown) (unknown) Inspection: normal (units (unknown) date) to inspection unknown) (unknown) (no (unknown) (unknown) Instructions: DI (units (unknown) date) for Headache unknown) (unknown) (no (unknown) (unknown) Interpretation: (units (unknown) date) unknown) (unknown) (no (unknown) (unknown) [facility] (units (unknown) date) [address] unknown) [place] [address] (unknown) (no (unknown) (unknown) [facility] (units (unknown) date) unknown) (unknown) (no (unknown) (unknown) Lab Data (units (unkno wn) date) unknown) (unknown) (no (unknown) (unknown) Lab Results (units (un known) date) unknown) (unknown) (no (unknown) (unknown) Labs: (units (unkno wn) date) unknown) (unknown) (no (unknown) (unknown) Last Admin: (units (un known) date) 10/23/22 12:56 unknown) Dose: 10 mg (unknown) (no (unknown) (unknown) Last Admin: (units (un known) date) 10/23/22 12:56 unknown) Dose: 25 mg (unknown) (no (unknown) (unknown) Left maxillary (units (unknown) date) sinus and right unknown) mastoid opacification.? (unknown) (no (unknown) (unknown) Limitations: no (units (unknown) date) limitations unknown) (unknown) (no (unknown) (unknown) Lipase Stat (units (un known) date) unknown) (unknown) (no (unknown) (unknown) Loc: ED (units (unkno wn) date) unknown) (unknown) (no (unknown) (unknown) Lung apices: No (units (unknown) date) pneumothorax unknown) (unknown) (no (unknown) (unknown) Lymph # (Auto) (units (unknown) date) 2700 ([id number]) unknown) /uL (unknown) (no (unknown) (unknown) Lymph % (Auto) (units (unknown) date) 16.7 L (25-40) % unknown) (unknown) (no (unknown) (unknown) MCAs: Normal and (units (unknown) date) symmetric unknown) (unknown) (no (unknown) (unknown) MCH 26.4 (26-34) (units (unknown) date) PG unknown) (unknown) (no (unknown) (unknown) MCHC 33.3 (30-36) (units (unknown) date) % unknown) (unknown) (no (unknown) (unknown) MCV 79.5 L (units (unk nown) date) (80-100) fL unknown) (unknown) (no (unknown) (unknown) MDM - Head Injury (units (unknown) date) unknown) (unknown) (no (unknown) (unknown) MR#: [id number] (units (unknown) date) unknown) (unknown) (no (unknown) (unknown) Medical History (units (unknown) date) (Reviewed 10/23/22 unknown) @ 11:50 by Pantera Duncan DO) (unknown) (no (unknown) (unknown) Medical Records (units (unknown) date) unknown) (unknown) (no (unknown) (unknown) Medication (units (unk nown) date) Instructions unknown) Recorded Confirmed (unknown) (no (unknown) (unknown) Metoclopramide HCl (units (unknown) date) (Metoclopramide 10 unknown) Mg/2 Ml Inj) 10 mg IV NOW ONE (unknown) (no (unknown) (unknown) Mode of arrival: (units (unknown) date) Ambulatory unknown) (unknown) (no (unknown) (unknown) [place] # (Auto) 500 (units (unknown) date) (0-900) /uL unknown) (unknown) (no (unknown) (unknown) [place] % (Auto) 3.3 (units (unknown) date) (3-14) % unknown) (unknown) (no (unknown) (unknown) Mother Cancer (units ( unknown) date) unknown) (unknown) (no (unknown) (unknown) NECK ANGIOGRAPHY (units (unknown) date) unknown) (unknown) (no (unknown) (unknown) Neuro (units (unkno wn) date) unknown) (unknown) (no (unknown) (unknown) Neut # (Auto) (units ( unknown) date) 49274 H (1903-9322) unknown) /uL (unknown) (no (unknown) (unknown) Neut % (Auto) 77.8 (units (unknown) date) H (50-75) % unknown) (unknown) (no (unknown) (unknown) No Action (units (unkn own) date) unknown) (unknown) (no (unknown) (unknown) No Known Drug (units ( unknown) date) Allergies Allergy unknown) Verified 10/23/22 10:45 (unknown) (no (unknown) (unknown) No ST T twinges (units (unknown) date) unknown) (unknown) (no (unknown) (unknown) Noncontrast 4.5 mm (units (unknown) date) thick angled axial unknown) sections acquired from the foramen magnum (unknown) (no (unknown) (unknown) Normal QRS (units (unk nown) date) unknown) (unknown) (no (unknown) (unknown) Normal QTC (units (unk nown) date) unknown) (unknown) (no (unknown) (unknown) Of note, there are (units (unknown) date) mild multifocal unknown) areas of narrowing in the intracranial (unknown) (no (unknown) (unknown) Opacification of (units (unknown) date) the left maxillary unknown) sinus.? (unknown) (no (unknown) (unknown) Ordered: (units (unkno wn) date) unknown) (unknown) (no (unknown) (unknown) Ordering Provider: (units (unknown) date) Pantera Duncan D.O. unknown) (unknown) (no (unknown) (unknown) Orders (units (unkno wn) date) unknown) (unknown) (no (unknown) (unknown) Oxygen Delivery (units (unknown) date) Method Room Air unknown) (unknown) (no (unknown) (unknown) Oxygen Delivery (units (unknown) date) Method unknown) (unknown) (no (unknown) (unknown) rn telemetry: Unremarkable (units (unknown) date) unknown) (unknown) (no (unknown) (unknown) PComms: No (units (unk nown) date) aneurysm unknown) (unknown) (no (unknown) (unknown) PROCEDURE:? CT (units (unknown) date) ANGIO HEAD AND NECK unknown) (unknown) (no (unknown) (unknown) PROCEDURE:? CT (units (unknown) date) HEAD/BRAIN WO CON unknown) (unknown) (no (unknown) (unknown) Patient (units (unkno wn) date) Disposition: Home unknown) (unknown) (no (unknown) (unknown) Patient History (units (unknown) date) unknown) (unknown) (no (unknown) (unknown) Patient is a (units (u nknown) date) 62-year-old female unknown) who is here for evaluation of a headache. She (unknown) (no (unknown) (unknown) Patient: (units (unkno wn) date) Nguyen Tracey unknown) MR#: [id number] (unknown) (no (unknown) (unknown) Patient: (units (unkno wn) date) Nguyen Tracey unknown) (unknown) (no (unknown) (unknown) Plt Count 265 (units ( unknown) date) (150-400) X103/uL unknown) (unknown) (no (unknown) (unknown) Posterior (units (unkn own) date) circulation: unknown) (unknown) (no (unknown) (unknown) Prescriptions: (units (unknown) date) unknown) (unknown) (no (unknown) (unknown) Procedure: CT (units ( unknown) date) angio head and neck unknown) (unknown) (no (unknown) (unknown) Procedure: CT (units ( unknown) date) head/brain wo con unknown) (unknown) (no (unknown) (unknown) Provider,Pablo (units (unknown) date) LORI [Primary Care unknown) Provider] (unknown) (no (unknown) (unknown) Psych (units (unkno wn) date) unknown) (unknown) (no (unknown) (unknown) Pulse Oximetry 94 (units (unknown) date) unknown) (unknown) (no (unknown) (unknown) Pulse Oximetry 95 (units (unknown) date) unknown) (unknown) (no (unknown) (unknown) Pulse Oximetry 96 (units (unknown) date) 94 95 unknown) (unknown) (no (unknown) (unknown) Pulse Oximetry 96 (units (unknown) date) 96 unknown) (unknown) (no (unknown) (unknown) Pulse Oximetry 96 (units (unknown) date) unknown) (unknown) (no (unknown) (unknown) Pulse Oximetry 97 (units (unknown) date) 10/23/22 10:44 unknown) (unknown) (no (unknown) (unknown) Pulse Oximetry 97 (units (unknown) date) 97 98 unknown) (unknown) (no (unknown) (unknown) Pulse Rate 104 H (units (unknown) date) 10/23/22 10:44 unknown) (unknown) (no (unknown) (unknown) Pulse Rate 104 H (units (unknown) date) 104 H 102 H unknown) (unknown) (no (unknown) (unknown) Pulse Rate 90 (units ( unknown) date) unknown) (unknown) (no (unknown) (unknown) Pulse Rate 93 H (units (unknown) date) unknown) (unknown) (no (unknown) (unknown) Pulse Rate 95 H 90 (units (unknown) date) 95 H unknown) (unknown) (no (unknown) (unknown) Pulse Rate 97 H (units (unknown) date) unknown) (unknown) (no (unknown) (unknown) Pulse Rate 98 H 93 (units (unknown) date) H unknown) (unknown) (no (unknown) (unknown) Pulse Rate 98 H (units (unknown) date) unknown) (unknown) (no (unknown) (unknown) RBC 5.08 (4.0-5.2) (units (unknown) date) X106/uL unknown) (unknown) (no (unknown) (unknown) RDW 14.1 (units (unkno wn) date) (11.6-14.8) % unknown) (unknown) (no (unknown) (unknown) ROS Unobtainable: (units (unknown) date) All systems unknown) reviewed + are unremarkable except as noted in HPI (unknown) (no (unknown) (unknown) Radiologist's (units ( unknown) date) Impression: unknown) (unknown) (no (unknown) (unknown) Rate: regular rate (units (unknown) date) unknown) (unknown) (no (unknown) (unknown) Recommend that you (units (unknown) date) continue to take unknown) all of your medications as directed. (unknown) (no (unknown) (unknown) Referrals: (units (unk nown) date) unknown) (unknown) (no (unknown) (unknown) Related Data (units (u nknown) date) unknown) (unknown) (no (unknown) (unknown) Resp (units (unkno wn) date) unknown) (unknown) (no (unknown) (unknown) Respiratory Rate (units (unknown) date) 16 unknown) (unknown) (no (unknown) (unknown) Respiratory Rate (units (unknown) date) 18 unknown) (unknown) (no (unknown) (unknown) Respiratory Rate (units (unknown) date) unknown) (unknown) (no (unknown) (unknown) Review of Systems (units (unknown) date) unknown) (unknown) (no (unknown) (unknown) Rhythm: regular (units (unknown) date) rhythm unknown) (unknown) (no (unknown) (unknown) Right (units (unkno wn) date) unknown) (unknown) (no (unknown) (unknown) Rx Instructions: (units (unknown) date) unknown) (unknown) (no (unknown) (unknown) Scores (units (unkno wn) date) unknown) (unknown) (no (unknown) (unknown) Sensory Exam: no (units (unknown) date) sensory deficits unknown) noted (unknown) (no (unknown) (unknown) She is also (units (un known) date) complaining of unknown) numbness throughout her body specifically in her (unknown) (no (unknown) (unknown) She states the (units (unknown) date) headache she is unknown) having now is somewhat different. The last (unknown) (no (unknown) (unknown) Signed By: (units (unk nown) date) unknown) (unknown) (no (unknown) (unknown) Signed (units (unkno wn) date) unknown) (unknown) (no (unknown) (unknown) Sinus rhythm (units (u nknown) date) unknown) (unknown) (no (unknown) (unknown) Sister Breast (units ( unknown) date) cancer unknown) (unknown) (no (unknown) (unknown) Sister Colon (units (u nknown) date) cancer unknown) (unknown) (no (unknown) (unknown) Smoking Status: (units (unknown) date) Never smoker unknown) (unknown) (no (unknown) (unknown) Social History (units (unknown) date) (Reviewed 10/23/22 unknown) @ 11:50 by Pantera Duncan DO) (unknown) (no (unknown) (unknown) Soft tissues: No (units (unknown) date) significant mass, unknown) aneurysm, or lymphadenopathy (unknown) (no (unknown) (unknown) Source: patient (units (unknown) date) and family unknown) () (unknown) (no (unknown) (unknown) Speech: speech (units (unknown) date) normal unknown) (unknown) (no (unknown) (unknown) Stand Alone Forms: (units (unknown) date) Patient Portal/API unknown) (unknown) (no (unknown) (unknown) Stated complaint: (units (unknown) date) back of head pain + unknown) now everything is numb (unknown) (no (unknown) (unknown) Stop: 10/23/22 (units (unknown) date) 11:42 unknown) (unknown) (no (unknown) (unknown) Substance Use (units ( unknown) date) Type: does not use unknown) (unknown) (no (unknown) (unknown) Surgical History (units (unknown) date) (Reviewed 07/12/22 unknown) @ 12:19 by Jhonny Tucker MD) (unknown) (no (unknown) (unknown) TECHNIQUE:? (units (un known) date) unknown) (unknown) (no (unknown) (unknown) Time Seen by (units (u nknown) date) Provider: 10/23/22 unknown) 10:45 (unknown) (no (unknown) (unknown) Trulicity 1.5 (units ( unknown) date) mg/0.5 mL Pen unknown) Injector (unknown) (no (unknown) (unknown) Urine Dip (units (unkn own) date) unknown) (unknown) (no (unknown) (unknown) Urine Specific (units (unknown) date) [place] 1.005 unknown) (unknown) (no (unknown) (unknown) Venous sinuses: (units (unknown) date) patent unknown) (unknown) (no (unknown) (unknown) Ventricular rate (units (unknown) date) 95 normal axis unknown) (unknown) (no (unknown) (unknown) Vertebral (units (unkn own) date) arteries: No unknown) stenosis or occlusion. No aneurysm. (unknown) (no (unknown) (unknown) Vertebral (units (unkn own) date) arteries: unknown) Unremarkable (unknown) (no (unknown) (unknown) Vital Signs - 8 hr (units (unknown) date) unknown) (unknown) (no (unknown) (unknown) Vital Signs (units (un known) date) unknown) (unknown) (no (unknown) (unknown) Vital signs: (units (u nknown) date) unknown) (unknown) (no (unknown) (unknown) Volume:? Mild (units ( unknown) date) volume loss unknown) (unknown) (no (unknown) (unknown) WBC 16.2 H (units (unk nown) date) (4.5-11.0) X103/uL unknown) (unknown) (no (unknown) (unknown) [Embedded Image (units (unknown) date) Not Available] unknown) (unknown) (no (unknown) (unknown) according to (units (u nknown) date) unknown) (unknown) (no (unknown) (unknown) acquired of the (units (unknown) date) unknown) (unknown) (no (unknown) (unknown) alcohol intake (units (unknown) date) frequency: unknown) holidays/special occasions only (unknown) (no (unknown) (unknown) alcohol intake: (units (unknown) date) former unknown) (unknown) (no (unknown) (unknown) amitriptyline 75 (units (unknown) date) MG tablet unknown) (unknown) (no (unknown) (unknown) amitriptyline 75 (units (unknown) date) mg tablet 75 mg PO unknown) HS ##0 02/09/11 09/03/22 (unknown) (no (unknown) (unknown) and below (units (unkn own) date) unknown) (unknown) (no (unknown) (unknown) anything for (units (u nknown) date) symptoms prior to unknown) arrival. She reports no trauma. (unknown) (no (unknown) (unknown) aortic arch (units (un known) date) through the [place] unknown) of [place].? Post-contrast 4.5 mm thick sections (unknown) (no (unknown) (unknown) are subtle (units (unk nown) date) unknown) (unknown) (no (unknown) (unknown) aspirin 81 mg (units ( unknown) date) tablet,delayed 81 unknown) mg PO DAILY 12/21/21 09/03/22 (unknown) (no (unknown) (unknown) aspirin 81 mg (units ( unknown) date) tablet,delayed unknown) release (DR/EC) (unknown) (no (unknown) (unknown) atorvastatin 40 mg (units (unknown) date) Tablet unknown) (unknown) (no (unknown) (unknown) atorvastatin 40 mg (units (unknown) date) tablet 40 mg PO unknown) DAILY 11/27/21 09/03/22 (unknown) (no (unknown) (unknown) central (units (unkno wn) date) intracranial unknown) vasculature and neck separately. For radiation dose (unknown) (no (unknown) (unknown) context. (units (unkno wn) date) unknown) (unknown) (no (unknown) (unknown) dulaglutide 1.5 (units (unknown) date) mg/0.5 mL 1.5 mg unknown) SUBCUT QWEEK 11/27/21 09/03/22 (unknown) (no (unknown) (unknown) entities such as (units (unknown) date) reversible cerebral unknown) vasoconstriction syndrome in the context of (unknown) (no (unknown) (unknown) epidural hematoma, (units (unknown) date) closed head injury, unknown) subarachnoid hematoma and other (Mass, (unknown) (no (unknown) (unknown) extremities (units (un known) date) unknown) (unknown) (no (unknown) (unknown) following was (units ( unknown) date) used:? automated unknown) exposure control, adjustment of mA and/or kV (unknown) (no (unknown) (unknown) following (units (unkn own) date) unknown) (unknown) (no (unknown) (unknown) for any new or (units (unknown) date) worsening symptoms. unknown) (unknown) (no (unknown) (unknown) for example in the (units (unknown) date) right M2 branch and unknown) pericallosal TANIA.? This is marked on the (unknown) (no (unknown) (unknown) from the (units (unkno wn) date) unknown) (unknown) (no (unknown) (unknown) headache did start (units (unknown) date) suddenly but it was unknown) only one-sided today's it is both sides. (unknown) (no (unknown) (unknown) headache.? (units (unk nown) date) Differential unknown) includes vasculitis.? Please correlate with clinical (unknown) (no (unknown) (unknown) household members: (units (unknown) date) spouse, family and unknown) children (unknown) (no (unknown) (unknown) images. (units (unkno wn) date) unknown) (unknown) (no (unknown) (unknown) insulin glargine (units (unknown) date) 100 unit/mL 35 unit unknown) SUBCUT QPM 11/27/21 09/03/22 (unknown) (no (unknown) (unknown) insulin glargine (units (unknown) date) 100 unit/mL unknown) Cartridge (unknown) (no (unknown) (unknown) lisinopril 20 MG (units (unknown) date) tablet unknown) (unknown) (no (unknown) (unknown) lisinopril 20 mg (units (unknown) date) tablet 10 mg PO unknown) QDAY ##0 02/09/11 09/03/22 (unknown) (no (unknown) (unknown) lower extremities. (units (unknown) date) She is also having unknown) some photophobia. She is not tried (unknown) (no (unknown) (unknown) maintained. (units (un known) date) unknown) (unknown) (no (unknown) (unknown) mastoid effusion. (units (unknown) date) unknown) (unknown) (no (unknown) (unknown) maximum-intensity- (units (unknown) date) projection (MIP) unknown) and/or volume rendering reformats were (unknown) (no (unknown) (unknown) metformin 500 mg (units (unknown) date) Tablet unknown) (unknown) (no (unknown) (unknown) metformin 500 mg (units (unknown) date) tablet 500 mg PO unknown) BID 11/27/21 09/03/22 (unknown) (no (unknown) (unknown) migraine, venous (units (unknown) date) thrombosis and unknown) others) (unknown) (no (unknown) (unknown) montage (units (unkno wn) date) unknown) (unknown) (no (unknown) (unknown) multifocal areas (units (unknown) date) of intracranial unknown) arterial narrowing, that can sometimes be seen (unknown) (no (unknown) (unknown) omeprazole 20 mg (units (unknown) date) capsule,delayed 20 unknown) mg PO DAILY 01/09/22 09/03/22 (unknown) (no (unknown) (unknown) omeprazole 20 mg (units (unknown) date) capsule,delayed unknown) release(DR/EC) (unknown) (no (unknown) (unknown) past and she was (units (unknown) date) seen in the unknown) emergency department was told that was a migraine. (unknown) (no (unknown) (unknown) patient size.? (units (unknown) date) unknown) (unknown) (no (unknown) (unknown) patient (units (unkno wn) date) unknown) (unknown) (no (unknown) (unknown) re-acquired from (units (unknown) date) the foramen magnum unknown) to the vertex.? 3-dimensional (unknown) (no (unknown) (unknown) reduction, the (units (unknown) date) unknown) (unknown) (no (unknown) (unknown) release (units (unkno wn) date) unknown) (unknown) (no (unknown) (unknown) size.? (units (unkno wn) date) unknown) (unknown) (no (unknown) (unknown) spironolactone 25 (units (unknown) date) mg Tablet unknown) (unknown) (no (unknown) (unknown) spironolactone 25 (units (unknown) date) mg tablet 25 mg PO unknown) BID 11/27/21 09/03/22 (unknown) (no (unknown) (unknown) states that is in (units (unknown) date) the back of her unknown) head. It is both sides. It started when she (unknown) (no (unknown) (unknown) stood up after (units (unknown) date) bending over unknown) pending some dogs. This has happened to her in the (unknown) (no (unknown) (unknown) subcutaneous (units (u nknown) date) cartridge unknown) (unknown) (no (unknown) (unknown) subcutaneous pen (units (unknown) date) injector unknown) (unknown) (no (unknown) (unknown) substance use (units ( unknown) date) type: does not use unknown) (unknown) (no (unknown) (unknown) take on sundays (units (unknown) date) unknown) (unknown) (no (unknown) (unknown) then (units (unkno wn) date) unknown) (unknown) (no (unknown) (unknown) to the (units (unkno wn) date) unknown) (unknown) (no (unknown) (unknown) vasculature, (units (u nknown) date) unknown) (unknown) (no (unknown) (unknown) vertex, with (units (u nknown) date) coronal and unknown) sagittal reformats.? For radiation dose reduction, the (unknown) (no (unknown) (unknown) was used:? (units (unk nown) date) automated exposure unknown) control, adjustment of mA and/or kV according to (unknown) (no (unknown) (unknown) with (units (unkno wn) date) unknown) Result panel 374 (unknown) (no (unknown) (unknown) (no value) (units (unk nown) date) unknown) (unknown) (no (unknown) (unknown) <Electronically (units (unknown) date) signed by Pantera Duncan D.O.> (unknown) (no (unknown) (unknown) (09/06/20) (units (unk nown) date) unknown) (unknown) (no (unknown) (unknown) (Trulicity) (units (un known) date) unknown) (unknown) (no (unknown) (unknown) 10/23/22 10:45 (units (unknown) date) unknown) (unknown) (no (unknown) (unknown) 10/23/22 10:52 (units (unknown) date) unknown) (unknown) (no (unknown) (unknown) 10/23/22 13:35 (units (unknown) date) unknown) (unknown) (no (unknown) (unknown) 10/23/22 1615 (units ( unknown) date) unknown) (unknown) (no (unknown) (unknown) 10/23/22 (units (unkno wn) date) Range/Units unknown) (unknown) (no (unknown) (unknown) 10/23/22 (units (unkno wn) date) unknown) (unknown) (no (unknown) (unknown) [id number] (units (unkno wn) date) unknown) (unknown) (no (unknown) (unknown) 1.5 mg SUBCUT (units ( unknown) date) QWEEK unknown) (unknown) (no (unknown) (unknown) 10 mg PO QDAY Qty: (units (unknown) date) 0 unknown) (unknown) (no (unknown) (unknown) 10:44 10/23/22 (units (unknown) date) unknown) (unknown) (no (unknown) (unknown) 10:46 10/23/22 (units (unknown) date) unknown) (unknown) (no (unknown) (unknown) 11:19 (units (unkno wn) date) unknown) (unknown) (no (unknown) (unknown) 11:21 10/23/22 (units (unknown) date) unknown) (unknown) (no (unknown) (unknown) 11:30 10/23/22 (units (unknown) date) unknown) (unknown) (no (unknown) (unknown) 11:30 (units (unkno wn) date) unknown) (unknown) (no (unknown) (unknown) [facility] [address] [place] [address] (units (unknown) date) unknown) (unknown) (no (unknown) (unknown) 12:00 10/23/22 (units (unknown) date) unknown) (unknown) (no (unknown) (unknown) 12:00 (units (unkno wn) date) unknown) (unknown) (no (unknown) (unknown) 12:30 10/23/22 (units (unknown) date) unknown) (unknown) (no (unknown) (unknown) 13:00 10/23/22 (units (unknown) date) unknown) (unknown) (no (unknown) (unknown) 13:00 (units (unkno wn) date) unknown) (unknown) (no (unknown) (unknown) 13:30 10/23/22 (units (unknown) date) unknown) (unknown) (no (unknown) (unknown) 13:31 10/23/22 (units (unknown) date) unknown) (unknown) (no (unknown) (unknown) 13:31 (units (unkno wn) date) unknown) (unknown) (no (unknown) (unknown) 13:35 (units (unkno wn) date) unknown) (unknown) (no (unknown) (unknown) 13:56 10/23/22 (units (unknown) date) unknown) (unknown) (no (unknown) (unknown) 13:56 (units (unkno wn) date) unknown) (unknown) (no (unknown) (unknown) 14:00 10/23/22 (units (unknown) date) unknown) (unknown) (no (unknown) (unknown) 14:00 (units (unkno wn) date) unknown) (unknown) (no (unknown) (unknown) 20 mg PO DAILY (units (unknown) date) unknown) (unknown) (no (unknown) (unknown) 25 mg PO BID (units (u nknown) date) unknown) (unknown) (no (unknown) (unknown) 35 unit SUBCUT QPM (units (unknown) date) unknown) (unknown) (no (unknown) (unknown) 40 mg PO DAILY (units (unknown) date) unknown) (unknown) (no (unknown) (unknown) 500 mg PO BID (units ( unknown) date) unknown) (unknown) (no (unknown) (unknown) 75 mg PO HS Qty: 0 (units (unknown) date) unknown) (unknown) (no (unknown) (unknown) 81 mg PO DAILY (units (unknown) date) unknown) (unknown) (no (unknown) (unknown) ? (units (unkno wn) date) unknown) (unknown) (no (unknown) (unknown) ACAs: Normal and (units (unknown) date) symmetric unknown) (unknown) (no (unknown) (unknown) AComm: No aneurysm (units (unknown) date) unknown) (unknown) (no (unknown) (unknown) Accession Number: (units (unknown) date) [id number] ?? unknown) (unknown) (no (unknown) (unknown) Accession Number: (units (unknown) date) [id number] ?? unknown) (unknown) (no (unknown) (unknown) Acct:[id number] (units (unknown) date) unknown) (unknown) (no (unknown) (unknown) Activity (units (unkno wn) date) Restrictions/Additi unknown) onal Instructions: (unknown) (no (unknown) (unknown) After the (units (unkn own) date) administration of unknown) intravenous contrast, 1 mm thick sections acquired (unknown) (no (unknown) (unknown) Age/Sex: 62 / F (units (unknown) date) unknown) (unknown) (no (unknown) (unknown) Allergies (units (unkn own) date) unknown) (unknown) (no (unknown) (unknown) Allergy/AdvReac (units (unknown) date) Type Severity unknown) Reaction Status Date / Time (unknown) (no (unknown) (unknown) [place], [place] (units ( unknown) date) [id number] unknown) (unknown) (no (unknown) (unknown) Anterior (units (unkno wn) date) circulation: unknown) (unknown) (no (unknown) (unknown) Aortic arch and (units (unknown) date) subclavian unknown) arteries: Normal flow, no aneurysm. (unknown) (no (unknown) (unknown) Appearance: (units (un known) date) grossly normal and unknown) well kempt (unknown) (no (unknown) (unknown) Approved by: Bart (units (unknown) date) Fausto Cohen on unknown) 10/23/2022 at 11:32?? (unknown) (no (unknown) (unknown) Approved by: Bart (units (unknown) date) Fausto Cohen on unknown) 10/23/2022 at 11:40?? (unknown) (no (unknown) (unknown) Attestation: I (units (unknown) date) personally reviewed unknown) and interpreted this ECG as follows: (unknown) (no (unknown) (unknown) Attestation: I (units (unknown) date) reviewed the unknown) patient's lab results. (unknown) (no (unknown) (unknown) Attestation: I (units (unknown) date) reviewed the unknown) patient's medical records. (unknown) (no (unknown) (unknown) Auscultation: (units ( unknown) date) clear to unknown) auscultation bilaterally (unknown) (no (unknown) (unknown) Basilar artery: (units (unknown) date) Unremarkable unknown) (unknown) (no (unknown) (unknown) Baso # (Auto) 200 (units (unknown) date) H (0-100) /uL unknown) (unknown) (no (unknown) (unknown) Baso % (Auto) 1.1 (units (unknown) date) (0-2) % unknown) (unknown) (no (unknown) (unknown) Bedside Urine (units ( unknown) date) Bilirubin - unknown) Negative (unknown) (no (unknown) (unknown) Bedside Urine (units ( unknown) date) Glucose 100 mg/dl unknown) (unknown) (no (unknown) (unknown) Bedside Urine (units ( unknown) date) Ketone - Negative unknown) (unknown) (no (unknown) (unknown) Bedside Urine (units ( unknown) date) Leukocytes - unknown) Negative (unknown) (no (unknown) (unknown) Bedside Urine (units ( unknown) date) Nitrite - Negative unknown) (unknown) (no (unknown) (unknown) Bedside Urine (units ( unknown) date) Occult Blood - unknown) Negative (unknown) (no (unknown) (unknown) Bedside Urine (units ( unknown) date) Protein - Negative unknown) (unknown) (no (unknown) (unknown) Bedside Urine (units ( unknown) date) Urobilinogen - unknown) Negative (unknown) (no (unknown) (unknown) Bedside Urine pH (units (unknown) date) 6.0 unknown) (unknown) (no (unknown) (unknown) Blood Pressure (units (unknown) date) 130/61 unknown) (unknown) (no (unknown) (unknown) Blood Pressure (units (unknown) date) 136/78 unknown) (unknown) (no (unknown) (unknown) Blood Pressure (units (unknown) date) 140/83 148/77 H unknown) (unknown) (no (unknown) (unknown) Blood Pressure (units (unknown) date) 143/85 H 141/84 H unknown) (unknown) (no (unknown) (unknown) Blood Pressure (units (unknown) date) 151/78 H 142/73 H unknown) (unknown) (no (unknown) (unknown) Blood Pressure (units (unknown) date) 165/84 H unknown) (unknown) (no (unknown) (unknown) Blood Pressure (units (unknown) date) unknown) (unknown) (no (unknown) (unknown) Bones: No acute or (units (unknown) date) suspicious unknown) abnormality.? Left maxillary sinus opacification.? (unknown) (no (unknown) (unknown) Brain: No (units (unkn own) date) intracranial unknown) hemorrhage. Winters-white differentiation is grossly (unknown) (no (unknown) (unknown) CCAs: No stenosis, (units (unknown) date) occlusion, or unknown) aneurysm. (unknown) (no (unknown) (unknown) COMPARISON:? (units (u nknown) date) [facility], unknown) CT, CT ANGIO HEAD AND NECK, 07/19/2022, 15:56. (unknown) (no (unknown) (unknown) COMPARISON:? None. (units (unknown) date) unknown) (unknown) (no (unknown) (unknown) CSF spaces: Basal (units (unknown) date) cisterns are unknown) patent. Lateral ventricles are symmetric. (unknown) (no (unknown) (unknown) CT Scan Report (units (unknown) date) unknown) (unknown) (no (unknown) (unknown) CT angio head and (units (unknown) date) neck Stat unknown) (unknown) (no (unknown) (unknown) CT head/brain wo (units (unknown) date) con Stat unknown) (unknown) (no (unknown) (unknown) CT scan - head: (units (unknown) date) unknown) (unknown) (no (unknown) (unknown) CT scan and CTA (units (unknown) date) were unremarkable. unknown) This was performed within 6 hours of the (unknown) (no (unknown) (unknown) CTA - brain/neck: (units (unknown) date) unknown) (unknown) (no (unknown) (unknown) Cardio (units (unkno wn) date) unknown) (unknown) (no (unknown) (unknown) Chief complaint: (units (unknown) date) Head Injury unknown) (unknown) (no (unknown) (unknown) Clinical (units (unkno wn) date) Impression: unknown) (unknown) (no (unknown) (unknown) Complete Blood (units (unknown) date) Count AUTO DIFF unknown) Stat (unknown) (no (unknown) (unknown) Comprehensive (units ( unknown) date) Metabolic Panel unknown) Stat (unknown) (no (unknown) (unknown) Consider MRI to (units (unknown) date) evaluate the unknown) parenchyma if necessary.? (unknown) (no (unknown) (unknown) Const (units (unkno wn) date) unknown) (unknown) (no (unknown) (unknown) Contact your (units (u nknown) date) primary doctor for unknown) a follow-up. Return to the emergency department (unknown) (no (unknown) (unknown) Course (units (unkno wn) date) unknown) (unknown) (no (unknown) (unknown) Craniofacial (units (u nknown) date) structures:? There unknown) is opacification of the left maxillary sinus. (unknown) (no (unknown) (unknown) : 1960 (units (unknown) date) Acct:[id number] unknown) (unknown) (no (unknown) (unknown) : 1960 (units (unknown) date) unknown) (unknown) (no (unknown) (unknown) Date of Service: (units (unknown) date) 10/23/22 unknown) (unknown) (no (unknown) (unknown) Departure (units (unkn own) date) unknown) (unknown) (no (unknown) (unknown) Diabetes (units (unkno wn) date) unknown) (unknown) (no (unknown) (unknown) Dictated by: Bart (units (unknown) date) Fausto Cohen on unknown) 10/23/2022 at 11:30 ? ? (unknown) (no (unknown) (unknown) Dictated by: Bart (units (unknown) date) Fausto Cohen on unknown) 10/23/2022 at 11:32 ? ? (unknown) (no (unknown) (unknown) Differential (units (u nknown) date) Diagnosis unknown) (unknown) (no (unknown) (unknown) Differential (units (u nknown) date) diagnosis: Likely unknown) concussion without loss of consciousness, (unknown) (no (unknown) (unknown) Diphenhydramine (units (unknown) date) HCl unknown) (Diphenhydramine 50 Mg/Ml Vial) 25 mg IV NOW ONE (unknown) (no (unknown) (unknown) Discharge Plan (units (unknown) date) unknown) (unknown) (no (unknown) (unknown) Discontinued (units (u nknown) date) Medications unknown) (unknown) (no (unknown) (unknown) Documented By: MLM (units (unknown) date) unknown) (unknown) (no (unknown) (unknown) Dominance:? (units (un known) date) Slightly left unknown) dominant (unknown) (no (unknown) (unknown) ECAs: Origins are (units (unknown) date) patent. unknown) (unknown) (no (unknown) (unknown) ECG Data (units (unkno wn) date) unknown) (unknown) (no (unknown) (unknown) ED Orders (units (unkn own) date) unknown) (unknown) (no (unknown) (unknown) EKG-12 Lead Stat (units (unknown) date) unknown) (unknown) (no (unknown) (unknown) ER Physician: (units ( unknown) date) Pantera Duncan D.O. unknown) (unknown) (no (unknown) (unknown) Effort + (units (unkno wn) date) Inspection: normal unknown) respiratory effort (unknown) (no (unknown) (unknown) Emergency Report (units (unknown) date) unknown) (unknown) (no (unknown) (unknown) Eos # (Auto) 200 (units (unknown) date) (0-450) /uL unknown) (unknown) (no (unknown) (unknown) Eos % (Auto) 1.1 L (units (unknown) date) (2-4) % unknown) (unknown) (no (unknown) (unknown) Esterase (units (unkno wn) date) unknown) (unknown) (no (unknown) (unknown) Exam (units (unkno wn) date) unknown) (unknown) (no (unknown) (unknown) Extrem (units (unkno wn) date) unknown) (unknown) (no (unknown) (unknown) Eyes (units (unkno wn) date) unknown) (unknown) (no (unknown) (unknown) FINDINGS:? (units (unk nown) date) unknown) (unknown) (no (unknown) (unknown) Family History (units (unknown) date) (Reviewed 07/12/22 unknown) @ 12:19 by Jhonny Tucker MD) (unknown) (no (unknown) (unknown) Father Esophageal (units (unknown) date) cancer unknown) (unknown) (no (unknown) (unknown) GCS (units (unkno wn) date) unknown) (unknown) (no (unknown) (unknown) GERD (units (unkno wn) date) (gastroesophageal unknown) reflux disease) (unknown) (no (unknown) (unknown) GI (units (unkno wn) date) unknown) (unknown) (no (unknown) (unknown) General (units (unkno wn) date) unknown) (unknown) (no (unknown) (unknown) General: Yes (units (u nknown) date) appearance normal, unknown) both eyes and all related structures (unknown) (no (unknown) (unknown) General: (units (o wn) date) cooperative, unknown) comfortable and No ill appearing (unknown) (no (unknown) (unknown) General: normal to (units (unknown) date) inspection, unknown) capillary refill normal and No edema (unknown) (no (unknown) (unknown) General: patient (units (unknown) date) alert, patient unknown) awake, patient oriented x3 and moves all (unknown) (no (unknown) (unknown) Krystina coma scale (units (unknown) date) eye opening: unknown) Spontaneous (unknown) (no (unknown) (unknown) Krystina coma scale (units (unknown) date) motor response: unknown) Obey commands (unknown) (no (unknown) (unknown) [place] coma scale (units (unknown) date) total score: 15 unknown) (unknown) (no (unknown) (unknown) Krystina coma scale (units (unknown) date) verbal response: unknown) Orientated (unknown) (no (unknown) (unknown) H/O knee surgery (units (unknown) date) () unknown) (unknown) (no (unknown) (unknown) H/O tubal ligation (units (unknown) date) () unknown) (unknown) (no (unknown) (unknown) HENMT (units (unkno wn) date) unknown) (unknown) (no (unknown) (unknown) HLD (units (o wn) date) (hyperlipidemia) unknown) (unknown) (no (unknown) (unknown) HPI - Head Injury (units (unknown) date) unknown) (unknown) (no (unknown) (unknown) HPI Narrative: (units (unknown) date) unknown) (unknown) (no (unknown) (unknown) HTN (hypertension) (units (unknown) date) unknown) (unknown) (no (unknown) (unknown) Hct 40.3 (36-46) % (units (unknown) date) unknown) (unknown) (no (unknown) (unknown) Head: normal to (units (unknown) date) inspection and unknown) normocephalic (unknown) (no (unknown) (unknown) Headache (units (unkno wn) date) unknown) (unknown) (no (unknown) (unknown) Hgb 13.4 (units (unkno wn) date) (12.0-16.0) g/dL unknown) (unknown) (no (unknown) (unknown) History of Present (units (unknown) date) Illness unknown) (unknown) (no (unknown) (unknown) History of (units (unk nown) date) endometrial unknown) ablation (-2004) (unknown) (no (unknown) (unknown) History of surgery (units (unknown) date) (12/15/20) unknown) (unknown) (no (unknown) (unknown) History of total (units (unknown) date) abdominal unknown) hysterectomy and bilateral salpingo-oophorecto my (unknown) (no (unknown) (unknown) Home Medications (units (unknown) date) unknown) (unknown) (no (unknown) (unknown) Hx of appendectomy (units (unknown) date) unknown) (unknown) (no (unknown) (unknown) Hx of colonoscopy (units (unknown) date) (12/21/21) unknown) (unknown) (no (unknown) (unknown) Hx of (units (unkno wn) date) tonsillectomy unknown) () (unknown) (no (unknown) (unknown) ICA origins (by (units (unknown) date) NASCET criteria): unknown) No hemodynamically significant narrowing. (unknown) (no (unknown) (unknown) ICAs: No stenosis, (units (unknown) date) occlusion or unknown) aneurysm. (unknown) (no (unknown) (unknown) ICAs: Normal and (units (unknown) date) symmetric unknown) (unknown) (no (unknown) (unknown) IMPRESSION:? No (units (unknown) date) acute intracranial unknown) abnormality. (unknown) (no (unknown) (unknown) IMPRESSION:? No (units (unknown) date) large vessel unknown) occlusion or high-grade stenosis.? However, there (unknown) (no (unknown) (unknown) INDICATIONS:? (units ( unknown) date) Sudden-onset unknown) headache (unknown) (no (unknown) (unknown) INDICATIONS:? (units ( unknown) date) headache and unknown) blurred vision (unknown) (no (unknown) (unknown) Image quality:? (units (unknown) date) Good unknown) (unknown) (no (unknown) (unknown) Imaging Data (units (u nknown) date) unknown) (unknown) (no (unknown) (unknown) Initial Vital (units ( unknown) date) Signs unknown) (unknown) (no (unknown) (unknown) Initial Vital (units ( unknown) date) Signs: unknown) (unknown) (no (unknown) (unknown) Inspection: normal (units (unknown) date) to inspection unknown) (unknown) (no (unknown) (unknown) Instructions: DI (units (unknown) date) for Headache unknown) (unknown) (no (unknown) (unknown) Interpretation: (units (unknown) date) unknown) (unknown) (no (unknown) (unknown) [facility] (units (unknown) date) [address] unknown) [place] [address] (unknown) (no (unknown) (unknown) [facility] (units (unknown) date) unknown) (unknown) (no (unknown) (unknown) Lab Data (units (unkno wn) date) unknown) (unknown) (no (unknown) (unknown) Lab Results (units (un known) date) unknown) (unknown) (no (unknown) (unknown) Labs: (units (unkno wn) date) unknown) (unknown) (no (unknown) (unknown) Last Admin: (units (un known) date) 10/23/22 12:56 unknown) Dose: 10 mg (unknown) (no (unknown) (unknown) Last Admin: (units (un known) date) 10/23/22 12:56 unknown) Dose: 25 mg (unknown) (no (unknown) (unknown) Left maxillary (units (unknown) date) sinus and right unknown) mastoid opacification.? (unknown) (no (unknown) (unknown) Limitations: no (units (unknown) date) limitations unknown) (unknown) (no (unknown) (unknown) Lipase Stat (units (un known) date) unknown) (unknown) (no (unknown) (unknown) Loc: ED (units (unkno wn) date) unknown) (unknown) (no (unknown) (unknown) Lung apices: No (units (unknown) date) pneumothorax unknown) (unknown) (no (unknown) (unknown) Lymph # (Auto) (units (unknown) date) 2700 (8419-1396) unknown) /uL (unknown) (no (unknown) (unknown) Lymph % (Auto) (units (unknown) date) 16.7 L (25-40) % unknown) (unknown) (no (unknown) (unknown) MCAs: Normal and (units (unknown) date) symmetric unknown) (unknown) (no (unknown) (unknown) MCH 26.4 (26-34) (units (unknown) date) PG unknown) (unknown) (no (unknown) (unknown) MCHC 33.3 (30-36) (units (unknown) date) % unknown) (unknown) (no (unknown) (unknown) MCV 79.5 L (units (unk nown) date) (80-100) fL unknown) (unknown) (no (unknown) (unknown) MDM - Head Injury (units (unknown) date) unknown) (unknown) (no (unknown) (unknown) MDM Narrative (units ( unknown) date) unknown) (unknown) (no (unknown) (unknown) MR#: [id number] (units (unknown) date) unknown) (unknown) (no (unknown) (unknown) Medical History (units (unknown) date) (Reviewed 10/23/22 unknown) @ 11:50 by Pantera Duncan DO) (unknown) (no (unknown) (unknown) Medical Records (units (unknown) date) unknown) (unknown) (no (unknown) (unknown) Medical decision (units (unknown) date) making narrative: unknown) (unknown) (no (unknown) (unknown) Medication (units (unk n) date) Instructions unknown) Recorded Confirmed (unknown) (no (unknown) (unknown) Metoclopramide HCl (units (unknown) date) (Metoclopramide 10 unknown) Mg/2 Ml Inj) 10 mg IV NOW ONE (unknown) (no (unknown) (unknown) Mode of arrival: (units (unknown) date) Ambulatory unknown) (unknown) (no (unknown) (unknown) [place] # (Auto) 500 (units (unknown) date) (0-900) /uL unknown) (unknown) (no (unknown) (unknown) [place] % (Auto) 3.3 (units (unknown) date) (3-14) % unknown) (unknown) (no (unknown) (unknown) Mother Cancer (units ( unknown) date) unknown) (unknown) (no (unknown) (unknown) NECK ANGIOGRAPHY (units (unknown) date) unknown) (unknown) (no (unknown) (unknown) Neuro (units (unkno wn) date) unknown) (unknown) (no (unknown) (unknown) Neut # (Auto) (units ( unknown) date) 84445 H (6661-3963) unknown) /uL (unknown) (no (unknown) (unknown) Neut % (Auto) 77.8 (units (unknown) date) H (50-75) % unknown) (unknown) (no (unknown) (unknown) No Action (units (unkn own) date) unknown) (unknown) (no (unknown) (unknown) No Known Drug (units ( unknown) date) Allergies Allergy unknown) Verified 10/23/22 10:45 (unknown) (no (unknown) (unknown) No ST T twinges (units (unknown) date) unknown) (unknown) (no (unknown) (unknown) Noncontrast 4.5 mm (units (unknown) date) thick angled axial unknown) sections acquired from the foramen magnum (unknown) (no (unknown) (unknown) Normal QRS (units (unk nown) date) unknown) (unknown) (no (unknown) (unknown) Normal QTC (units (unk nown) date) unknown) (unknown) (no (unknown) (unknown) Of note, there are (units (unknown) date) mild multifocal unknown) areas of narrowing in the intracranial (unknown) (no (unknown) (unknown) Opacification of (units (unknown) date) the left maxillary unknown) sinus.? (unknown) (no (unknown) (unknown) Ordered: (units (unkno wn) date) unknown) (unknown) (no (unknown) (unknown) Ordering Provider: (units (unknown) date) Pantera Duncan D.O. unknown) (unknown) (no (unknown) (unknown) Orders (units (unkno wn) date) unknown) (unknown) (no (unknown) (unknown) Oxygen Delivery (units (unknown) date) Method Room Air unknown) (unknown) (no (unknown) (unknown) Oxygen Delivery (units (unknown) date) Method unknown) (unknown) (no (unknown) (unknown) rn telemetry: Unremarkable (units (unknown) date) unknown) (unknown) (no (unknown) (unknown) PComms: No (units (unk nown) date) aneurysm unknown) (unknown) (no (unknown) (unknown) PROCEDURE:? CT (units (unknown) date) ANGIO HEAD AND NECK unknown) (unknown) (no (unknown) (unknown) PROCEDURE:? CT (units (unknown) date) HEAD/BRAIN WO CON unknown) (unknown) (no (unknown) (unknown) Patient (units (unkno wn) date) Disposition: Home unknown) (unknown) (no (unknown) (unknown) Patient History (units (unknown) date) unknown) (unknown) (no (unknown) (unknown) Patient did have a (units (unknown) date) sudden onset of a unknown) headache that was in the back of her head. (unknown) (no (unknown) (unknown) Patient is a (units (u nknown) date) 62-year-old female unknown) who is here for evaluation of a headache. She (unknown) (no (unknown) (unknown) Patient: (units (unkno wn) date) Nguyen Tracey unknown) MR#: [id number] (unknown) (no (unknown) (unknown) Patient: (units (unkno wn) date) Nguyen Tracey unknown) (unknown) (no (unknown) (unknown) Plt Count 265 (units ( unknown) date) (150-400) X103/uL unknown) (unknown) (no (unknown) (unknown) Posterior (units (unkn own) date) circulation: unknown) (unknown) (no (unknown) (unknown) Prescriptions: (units (unknown) date) unknown) (unknown) (no (unknown) (unknown) Procedure: CT (units ( unknown) date) angio head and neck unknown) (unknown) (no (unknown) (unknown) Procedure: CT (units ( unknown) date) head/brain wo con unknown) (unknown) (no (unknown) (unknown) Provider,Pablo (units (unknown) date) LORI [Primary Care unknown) Provider] (unknown) (no (unknown) (unknown) Psych (units (unkno wn) date) unknown) (unknown) (no (unknown) (unknown) Pulse Oximetry 94 (units (unknown) date) unknown) (unknown) (no (unknown) (unknown) Pulse Oximetry 95 (units (unknown) date) unknown) (unknown) (no (unknown) (unknown) Pulse Oximetry 96 (units (unknown) date) 94 95 unknown) (unknown) (no (unknown) (unknown) Pulse Oximetry 96 (units (unknown) date) 96 unknown) (unknown) (no (unknown) (unknown) Pulse Oximetry 96 (units (unknown) date) unknown) (unknown) (no (unknown) (unknown) Pulse Oximetry 97 (units (unknown) date) 10/23/22 10:44 unknown) (unknown) (no (unknown) (unknown) Pulse Oximetry 97 (units (unknown) date) 97 98 unknown) (unknown) (no (unknown) (unknown) Pulse Rate 104 H (units (unknown) date) 10/23/22 10:44 unknown) (unknown) (no (unknown) (unknown) Pulse Rate 104 H (units (unknown) date) 104 H 102 H unknown) (unknown) (no (unknown) (unknown) Pulse Rate 90 (units ( unknown) date) unknown) (unknown) (no (unknown) (unknown) Pulse Rate 93 H (units (unknown) date) unknown) (unknown) (no (unknown) (unknown) Pulse Rate 95 H 90 (units (unknown) date) 95 H unknown) (unknown) (no (unknown) (unknown) Pulse Rate 97 H (units (unknown) date) unknown) (unknown) (no (unknown) (unknown) Pulse Rate 98 H 93 (units (unknown) date) H unknown) (unknown) (no (unknown) (unknown) Pulse Rate 98 H (units (unknown) date) unknown) (unknown) (no (unknown) (unknown) RBC 5.08 (4.0-5.2) (units (unknown) date) X106/uL unknown) (unknown) (no (unknown) (unknown) RDW 14.1 (units (unkno wn) date) (11.6-14.8) % unknown) (unknown) (no (unknown) (unknown) ROS Unobtainable: (units (unknown) date) All systems unknown) reviewed + are unremarkable except as noted in HPI (unknown) (no (unknown) (unknown) Radiologist's (units ( unknown) date) Impression: unknown) (unknown) (no (unknown) (unknown) Rate: regular rate (units (unknown) date) unknown) (unknown) (no (unknown) (unknown) Recommend that you (units (unknown) date) continue to take unknown) all of your medications as directed. (unknown) (no (unknown) (unknown) Referrals: (units (unk nown) date) unknown) (unknown) (no (unknown) (unknown) Related Data (units (u nknown) date) unknown) (unknown) (no (unknown) (unknown) Resp (units (unkno wn) date) unknown) (unknown) (no (unknown) (unknown) Respiratory Rate (units (unknown) date) 16 unknown) (unknown) (no (unknown) (unknown) Respiratory Rate (units (unknown) date) 18 unknown) (unknown) (no (unknown) (unknown) Respiratory Rate (units (unknown) date) unknown) (unknown) (no (unknown) (unknown) Review of Systems (units (unknown) date) unknown) (unknown) (no (unknown) (unknown) Rhythm: regular (units (unknown) date) rhythm unknown) (unknown) (no (unknown) (unknown) Right (units (unkno wn) date) unknown) (unknown) (no (unknown) (unknown) Rx Instructions: (units (unknown) date) unknown) (unknown) (no (unknown) (unknown) Scores (units (unkno wn) date) unknown) (unknown) (no (unknown) (unknown) Sensory Exam: no (units (unknown) date) sensory deficits unknown) noted (unknown) (no (unknown) (unknown) She is also (units (un known) date) complaining of unknown) numbness throughout her body specifically in her (unknown) (no (unknown) (unknown) She states the (units (unknown) date) headache she is unknown) having now is somewhat different. The last (unknown) (no (unknown) (unknown) Signed By: (units (unk nown) date) unknown) (unknown) (no (unknown) (unknown) Signed (units (unkno wn) date) unknown) (unknown) (no (unknown) (unknown) Sinus rhythm (units (u nknown) date) unknown) (unknown) (no (unknown) (unknown) Sister Breast (units ( unknown) date) cancer unknown) (unknown) (no (unknown) (unknown) Sister Colon (units (u nknown) date) cancer unknown) (unknown) (no (unknown) (unknown) Smoking Status: (units (unknown) date) Never smoker unknown) (unknown) (no (unknown) (unknown) Social History (units (unknown) date) (Reviewed 10/23/22 unknown) @ 11:50 by Pantera Duncan DO) (unknown) (no (unknown) (unknown) Soft tissues: No (units (unknown) date) significant mass, unknown) aneurysm, or lymphadenopathy (unknown) (no (unknown) (unknown) Source: patient (units (unknown) date) and family unknown) () (unknown) (no (unknown) (unknown) Speech: speech (units (unknown) date) normal unknown) (unknown) (no (unknown) (unknown) Stand Alone Forms: (units (unknown) date) Patient Portal/API unknown) (unknown) (no (unknown) (unknown) Stated complaint: (units (unknown) date) back of head pain + unknown) now everything is numb (unknown) (no (unknown) (unknown) Stop: 10/23/22 (units (unknown) date) 11:42 unknown) (unknown) (no (unknown) (unknown) Substance Use (units ( unknown) date) Type: does not use unknown) (unknown) (no (unknown) (unknown) Surgical History (units (unknown) date) (Reviewed 07/12/22 unknown) @ 12:19 by Jhonny Tucker MD) (unknown) (no (unknown) (unknown) TECHNIQUE:? (units (un known) date) unknown) (unknown) (no (unknown) (unknown) Time Seen by (units (u nknown) date) Provider: 10/23/22 unknown) 10:45 (unknown) (no (unknown) (unknown) Trulicity 1.5 (units ( unknown) date) mg/0.5 mL Pen unknown) Injector (unknown) (no (unknown) (unknown) Urine Dip (units (unkn own) date) unknown) (unknown) (no (unknown) (unknown) Urine Specific (units (unknown) date) [place] 1.005 unknown) (unknown) (no (unknown) (unknown) Venous sinuses: (units (unknown) date) patent unknown) (unknown) (no (unknown) (unknown) Ventricular rate (units (unknown) date) 95 normal axis unknown) (unknown) (no (unknown) (unknown) Vertebral (units (unkn own) date) arteries: No unknown) stenosis or occlusion. No aneurysm. (unknown) (no (unknown) (unknown) Vertebral (units (unkn own) date) arteries: unknown) Unremarkable (unknown) (no (unknown) (unknown) Vital Signs - 8 hr (units (unknown) date) unknown) (unknown) (no (unknown) (unknown) Vital Signs (units (un known) date) unknown) (unknown) (no (unknown) (unknown) Vital signs: (units (u nknown) date) unknown) (unknown) (no (unknown) (unknown) Volume:? Mild (units ( unknown) date) volume loss unknown) (unknown) (no (unknown) (unknown) WBC 16.2 H (units (unk nown) date) (4.5-11.0) X103/uL unknown) (unknown) (no (unknown) (unknown) [Embedded Image (units (unknown) date) Not Available] unknown) (unknown) (no (unknown) (unknown) according to (units (u nknown) date) unknown) (unknown) (no (unknown) (unknown) acquired of the (units (unknown) date) unknown) (unknown) (no (unknown) (unknown) alcohol intake (units (unknown) date) frequency: unknown) holidays/special occasions only (unknown) (no (unknown) (unknown) alcohol intake: (units (unknown) date) former unknown) (unknown) (no (unknown) (unknown) amitriptyline 75 (units (unknown) date) MG tablet unknown) (unknown) (no (unknown) (unknown) amitriptyline 75 (units (unknown) date) mg tablet 75 mg PO unknown) HS ##0 02/09/11 09/03/22 (unknown) (no (unknown) (unknown) and below (units (unkn own) date) unknown) (unknown) (no (unknown) (unknown) anything for (units (u nknown) date) symptoms prior to unknown) arrival. She reports no trauma. (unknown) (no (unknown) (unknown) aortic arch (units (un known) date) through the [place] unknown) of [place].? Post-contrast 4.5 mm thick sections (unknown) (no (unknown) (unknown) are subtle (units (unk nown) date) unknown) (unknown) (no (unknown) (unknown) aspirin 81 mg (units ( unknown) date) tablet,delayed 81 unknown) mg PO DAILY 12/21/21 09/03/22 (unknown) (no (unknown) (unknown) aspirin 81 mg (units ( unknown) date) tablet,delayed unknown) release (DR/EC) (unknown) (no (unknown) (unknown) atorvastatin 40 mg (units (unknown) date) Tablet unknown) (unknown) (no (unknown) (unknown) atorvastatin 40 mg (units (unknown) date) tablet 40 mg PO unknown) DAILY 11/27/21 09/03/22 (unknown) (no (unknown) (unknown) central (units (unkno wn) date) intracranial unknown) vasculature and neck separately. For radiation dose (unknown) (no (unknown) (unknown) completely (units (unk nown) date) resolved she now unknown) just has a slight pain behind her left eye. She is (unknown) (no (unknown) (unknown) context. (units (unkno wn) date) unknown) (unknown) (no (unknown) (unknown) could be the cause (units (unknown) date) of her presenting unknown) symptoms. Low suspicion for infectious (unknown) (no (unknown) (unknown) discharge patient (units (unknown) date) home to rest unknown) Tylenol and ibuprofen. She was given strict (unknown) (no (unknown) (unknown) dulaglutide 1.5 (units (unknown) date) mg/0.5 mL 1.5 mg unknown) SUBCUT QWEEK 11/27/21 09/03/22 (unknown) (no (unknown) (unknown) entities such as (units (unknown) date) reversible cerebral unknown) vasoconstriction syndrome in the context of (unknown) (no (unknown) (unknown) epidural hematoma, (units (unknown) date) closed head injury, unknown) subarachnoid hematoma and other (Mass, (unknown) (no (unknown) (unknown) etiology. Low (units ( unknown) date) suspicion for head unknown) bleed. There is no indication of mass. Will (unknown) (no (unknown) (unknown) extremities (units (un known) date) unknown) (unknown) (no (unknown) (unknown) following was (units ( unknown) date) used:? automated unknown) exposure control, adjustment of mA and/or kV (unknown) (no (unknown) (unknown) following (units (unkn own) date) unknown) (unknown) (no (unknown) (unknown) for any new or (units (unknown) date) worsening symptoms. unknown) (unknown) (no (unknown) (unknown) for example in the (units (unknown) date) right M2 branch and unknown) pericallosal TANIA.? This is marked on the (unknown) (no (unknown) (unknown) from the (units (unkno wn) date) unknown) (unknown) (no (unknown) (unknown) has had sudden (units (unknown) date) onset of headaches unknown) in the past. She was told that they were (unknown) (no (unknown) (unknown) headache did start (units (unknown) date) suddenly but it was unknown) only one-sided today's it is both sides. (unknown) (no (unknown) (unknown) headache.? (units (unk nown) date) Differential unknown) includes vasculitis.? Please correlate with clinical (unknown) (no (unknown) (unknown) household members: (units (unknown) date) spouse, family and unknown) children (unknown) (no (unknown) (unknown) images. (units (unkno wn) date) unknown) (unknown) (no (unknown) (unknown) insulin glargine (units (unknown) date) 100 unit/mL 35 unit unknown) SUBCUT QPM 11/27/21 09/03/22 (unknown) (no (unknown) (unknown) insulin glargine (units (unknown) date) 100 unit/mL unknown) Cartridge (unknown) (no (unknown) (unknown) lisinopril 20 MG (units (unknown) date) tablet unknown) (unknown) (no (unknown) (unknown) lisinopril 20 mg (units (unknown) date) tablet 10 mg PO unknown) QDAY ##0 02/09/11 09/03/22 (unknown) (no (unknown) (unknown) lower extremities. (units (unknown) date) She is also having unknown) some photophobia. She is not tried (unknown) (no (unknown) (unknown) maintained. (units (un known) date) unknown) (unknown) (no (unknown) (unknown) mastoid effusion. (units (unknown) date) unknown) (unknown) (no (unknown) (unknown) maximum-intensity- (units (unknown) date) projection (MIP) unknown) and/or volume rendering reformats were (unknown) (no (unknown) (unknown) metformin 500 mg (units (unknown) date) Tablet unknown) (unknown) (no (unknown) (unknown) metformin 500 mg (units (unknown) date) tablet 500 mg PO unknown) BID 11/27/21 09/03/22 (unknown) (no (unknown) (unknown) migraine, venous (units (unknown) date) thrombosis and unknown) others) (unknown) (no (unknown) (unknown) migraines. After (units (unknown) date) medication she unknown) states that the pain in the back of her head is (unknown) (no (unknown) (unknown) montage (units (unkno wn) date) unknown) (unknown) (no (unknown) (unknown) multifocal areas (units (unknown) date) of intracranial unknown) arterial narrowing, that can sometimes be seen (unknown) (no (unknown) (unknown) no vision changes. (units (unknown) date) There is some unknown) findings on the CTA that potentially her (unknown) (no (unknown) (unknown) omeprazole 20 mg (units (unknown) date) capsule,delayed 20 unknown) mg PO DAILY 01/09/22 09/03/22 (unknown) (no (unknown) (unknown) omeprazole 20 mg (units (unknown) date) capsule,delayed unknown) release(DR/EC) (unknown) (no (unknown) (unknown) onset of her (units (u nknown) date) symptoms. She has a unknown) unremarkable neurologic exam otherwise. She (unknown) (no (unknown) (unknown) past and she was (units (unknown) date) seen in the unknown) emergency department was told that was a migraine. (unknown) (no (unknown) (unknown) patient size.? (units (unknown) date) unknown) (unknown) (no (unknown) (unknown) patient (units (unkno wn) date) unknown) (unknown) (no (unknown) (unknown) re-acquired from (units (unknown) date) the foramen magnum unknown) to the vertex.? 3-dimensional (unknown) (no (unknown) (unknown) reduction, the (units (unknown) date) unknown) (unknown) (no (unknown) (unknown) release (units (unkno wn) date) unknown) (unknown) (no (unknown) (unknown) return (units (unkno wn) date) precautions. She unknown) expressed understanding and agreement. (unknown) (no (unknown) (unknown) size.? (units (unkno wn) date) unknown) (unknown) (no (unknown) (unknown) spironolactone 25 (units (unknown) date) mg Tablet unknown) (unknown) (no (unknown) (unknown) spironolactone 25 (units (unknown) date) mg tablet 25 mg PO unknown) BID 11/27/21 09/03/22 (unknown) (no (unknown) (unknown) states that is in (units (unknown) date) the back of her unknown) head. It is both sides. It started when she (unknown) (no (unknown) (unknown) stood up after (units (unknown) date) bending over unknown) pending some dogs. This has happened to her in the (unknown) (no (unknown) (unknown) subcutaneous (units (u nknown) date) cartridge unknown) (unknown) (no (unknown) (unknown) subcutaneous pen (units (unknown) date) injector unknown) (unknown) (no (unknown) (unknown) substance use (units ( unknown) date) type: does not use unknown) (unknown) (no (unknown) (unknown) symptoms are (units (u nknown) date) reversible cerebral unknown) vasoconstrictive syndrome and this very well (unknown) (no (unknown) (unknown) take on sundays (units (unknown) date) unknown) (unknown) (no (unknown) (unknown) then (units (unkno wn) date) unknown) (unknown) (no (unknown) (unknown) to the (units (unkno wn) date) unknown) (unknown) (no (unknown) (unknown) vasculature, (units (u nknown) date) unknown) (unknown) (no (unknown) (unknown) vertex, with (units (u nknown) date) coronal and unknown) sagittal reformats.? For radiation dose reduction, the (unknown) (no (unknown) (unknown) was used:? (units (unk nown) date) automated exposure unknown) control, adjustment of mA and/or kV according to (unknown) (no (unknown) (unknown) with (units (unkno wn) date) unknown) Social History date description facility 2022-10-23 00:00 Never smoked tobacco ([facility] Vital Signs date measurement value units 2022-09-03 00:00 BP_diastolic 75 mmHg 2022-09-03 00:00 BP_systolic 146 mmHg 2022-09-03 00:00 heart_rate 72 /min 2022-09-03 00:00 o2_saturation 99 % 2022-09-03 00:00 respiration_rate 18 /min 2022-09-03 00:00 temperature_metric 36.17 C 2022-09-03 00:00 temperature_standard 97.1 F 2022-09-03 00:00 weight_metric 72 kg 2022-09-03 00:00 weight_standard 158.73 lb 2022-10-23 00:00 BMI 32.0 kg/m2 2022-10-23 00:00 BP_diastolic 61 mmHg 2022-10-23 00:00 BP_systolic 130 mmHg 2022-10-23 00:00 heart_rate 93 /min 2022-10-23 00:00 height_metric 157.48 cm 2022-10-23 00:00 height_standard 62 in 2022-10-23 00:00 o2_saturation 94 % 2022-10-23 00:00 respiration_rate 16 /min 2022-10-23 00:00 weight_metric 79.37 kg 2022-10-23 00:00 weight_standard 174.98 lb
[2022-11-01] MEDS ORDERED: SODIUM CHLORIDE 0.9% 1,000 ML IV STA ×2 (17:03)
[2022-11-01 17:05] LABS: BASOPHILS # (AUTO) 0.1 10^3/uL (0.0-0.1); BASOPHILS % (AUTO) 0.4 %; EOSINOPHILS # (AUTO) 0.1 10^3/uL (0.0-0.7); EOSINOPHILS % (AUTO) 0.8 %; HCT - HEMATOCRIT 41.9 % (37.0-47.0); HGB - HEMOGLOBIN 13.1 g/dL (12.0-16.0); LYMPHOCYTES # (AUTO) 0.9 10^3/uL (1.5-3.5); LYMPHOCYTES % (AUTO) 7.8 %; MEAN CORPUSCULAR HEMOGLOBIN 26.1 pg (27.0-31.0); MEAN CORPUSCULAR HGB CONC 31.3 g/dL (32.0-36.0); MEAN CORPUSCULAR VOLUME 83.6 fL (81.0-99.0); MEAN PLATELET VOLUME 12.4 fL (7.9-10.8); MONOCYTES # (AUTO) 0.4 10^3/uL (0.0-1.0); MONOCYTES % (AUTO) 3.1 %; NEUTROPHILS # (AUTO) 9.9 10^3/uL (1.5-6.6); NEUTROPHILS % (AUTO) 87.5 %; PLT - PLATELET COUNT 240 10^3/uL (130-450); RED BLOOD COUNT 5.01 10^6/uL (4.20-5.40); RED CELL DISTRIBUTION WIDTH 14.1 % (12.0-15.0); WHITE BLOOD COUNT 11.3 x10^3/uL (4.8-10.8)
--- NOTE | 2022-11-01 17:06 | ED Physician Documentation ---
History of Present Illness - Stated complaint Stated Complaint: DIZZY/NAUSEA - Chief complaint Chief Complaint: Neuro - History obtained from History obtained from: Patient, EMS - History of Present Illness Timing: Today Pain level max: 4 Pain level now: 3 - Additonal information Additional information: Patient is a 62-year-old female who presents to the emergency department complaining of emesis x1 today. Diffuse, crampy abdominal pain today. Had several days of dysuria and low back pain. She is diabetic, but does not currently have any test strips so she has been judging her blood sugars based on how she feels. Review of Systems Constitutional: denies: Fever, Chills Nose: denies: Rhinorrhea / runny nose, Congestion Throat: denies: Sore throat Cardiac: denies: Chest pain / pressure, Palpitations Respiratory: denies: Dyspnea, Cough GI: reports: Abdominal Pain (Crampy, diffuse), Nausea, Vomiting, Diarrhea : denies: Dysuria Skin: denies: Rash Musculoskeletal: denies: Neck pain, Back pain Neurologic: denies: Headache PD PAST MEDICAL HISTORY - Past Medical History Cardiovascular: Hypertension Endocrine/Autoimmune: Type 2 diabetes Musculoskeletal: Fibromyalgia - Past Surgical History Past Surgical History: Yes General: Cholecystectomy Ortho: Knee replacement /CHOIR SINGER: Tubal ligation HEENT: Tonsil/Adenoidectomy - Present Medications Home Medications: Ambulatory Orders Medication Instructions Recorded Confirmed Aspirin [Aspir-Low] 81 mg PO DAILY 04/24/16 11/01/22 Spironolactone 2 tab PO BID 04/24/16 11/01/22 lisinopriL [Lisinopril] 10 mg PO DAILY 04/24/16 11/01/22 metFORMIN [Glucophage] 500 mg PO BID 04/24/16 11/01/22 Atorvastatin [Lipitor] 40 mg PO DAILY 06/17/20 11/01/22 Insulin Glargine [Lantus Solostar] 28 unit SUBQ DAILY 06/17/20 11/01/22 Amitriptyline HCl 75 mg PO DAILY 11/01/22 11/01/22 Dulaglutide [Trulicity] 0.75 mg SQ OAW 11/01/22 11/01/22 Omeprazole 40 mg PO DAILY 11/01/22 11/01/22 Ondansetron Odt [Zofran] 4 mg TL Q6H PRN #10 tablet 11/01/22 - Allergies Allergies/Adverse Reactions: Allergies Allergy/AdvReac Type Severity Reaction Status Date / Time Tetanus Vaccines and Toxoid Allergy Unknown Verified 06/17/20 11:13 - Social History Does the pt smoke?: No Smoking Status: Never smoker Does the pt drink ETOH?: No Does the pt have substance abuse?: No PD ED PE NORMAL - Vitals Vital signs reviewed: Yes - General General: Alert and oriented X 3, No acute distress - HEENT HEENT: PERRL, Moist mucous membranes - Neck Neck: Supple, no meningeal sign - Cardiac Cardiac: RRR, Strong equal pulses - Respiratory Respiratory: No respiratory distress, Clear bilaterally - Abdomen Abdomen: Soft, Non tender, Non distended - Back Back: No CVA TTP, No spinal TTP - Derm Derm: Warm and dry - Extremities Extremities: No edema, No calf tenderness / cord - Neuro Neuro: Alert and oriented X 3 - Psych Psych: Normal mood, Normal affect Results - Vitals Vitals: Vital Signs - 24 hr 11/01/22 11/01/22 11/01/22 16:25 17:51 19:04 Temperature 36.8 C Heart Rate 113 H 107 H 103 H Respiratory 14 12 14 Rate Blood Pressure 179/84 H 172/84 H 154/91 H O2 Saturation 99 98 100 11/01/22 21:00 Temperature Heart Rate 102 H Respiratory 18 Rate Blood Pressure 145/76 H O2 Saturation 98 Oxygen O2 Source Room air - Labs Labs: Laboratory Tests 11/01/22 11/01/22 11/01/22 16:50 16:50 16:50 WBC 11.3 H RBC 5.01 Hgb 13.1 Hct 41.9 MCV 83.6 MCH 26.1 L MCHC 31.3 L RDW 14.1 Plt Count 240 MPV 12.4 H Neut # (Auto) 9.9 H Lymph # (Auto) 0.9 L [place] # (Auto) 0.4 Eos # (Auto) 0.1 Baso # (Auto) 0.1 Absolute Nucleated RBC 0.00 Nucleated RBC % 0.0 VBG pH VBG pCO2 VBG pO2 VBG HCO3 VBG Total CO2 VBG O2 Saturation VBG Base Excess Sodium 132 L Potassium 3.5 Chloride 99 L Carbon Dioxide 19 L Anion Gap 14.0 H BUN 9 Creatinine 1.0 Estimated GFR (MDRD) 57 L Glucose 543 H* Estimat Average Glucose Hemoglobin A1c % Calcium 9.2 Total Bilirubin 0.8 AST 19 ALT 15 Alkaline Phosphatase 135 H Total Protein 7.6 Albumin 3.9 Globulin 3.7 Albumin/Globulin Ratio 1.1 Lipase 32 Urine Color Urine Clarity Urine pH Ur Specific [place] Urine Protein Urine Glucose (UA) Urine Ketones Urine Occult Blood Urine Nitrite Urine Bilirubin Urine Urobilinogen Ur Leukocyte Esterase Ur Microscopic Review Urine Culture Comments Serum Ketones NEGATIVE 11/01/22 11/01/22 11/01/22 16:50 16:59 17:23 WBC RBC Hgb Hct MCV MCH MCHC RDW Plt Count MPV Neut # (Auto) Lymph # (Auto) [place] # (Auto) Eos # (Auto) Baso # (Auto) Absolute Nucleated RBC Nucleated RBC % VBG pH 7.392 VBG pCO2 32.9 L VBG pO2 77.7 H VBG HCO3 19.6 L VBG Total CO2 20.6 L VBG O2 Saturation 96.1 H VBG Base Excess -4.4 L Sodium Potassium Chloride Carbon Dioxide Anion Gap BUN Creatinine Estimated GFR (MDRD) Glucose Estimat Average Glucose 266 H Hemoglobin A1c % 10.9 H Calcium Total Bilirubin AST ALT Alkaline Phosphatase Total Protein Albumin Globulin Albumin/Globulin Ratio Lipase Urine Color STRAW Urine Clarity CLEAR Urine pH 6.0 Ur Specific [place] <=1.005 Urine Protein NEGATIVE Urine Glucose (UA) >=1000 H Urine Ketones NEGATIVE Urine Occult Blood NEGATIVE Urine Nitrite NEGATIVE Urine Bilirubin NEGATIVE Urine Urobilinogen 0.2 (NORMAL) Ur Leukocyte Esterase NEGATIVE Ur Microscopic Review NOT INDICATED Urine Culture Comments NOT INDICATED Serum Ketones - Rads (name of study) CT abd pelvis Radiology: Final report received, See rad report PD Medical Decision Making - ED course Complexity details: reviewed results, re-evaluated patient, considered differential, d/w patient, d/w family ED course: 62-year-old female presents to the emergency department with hyperglycemia, initial blood sugar was over 500. She received IV fluids, insulin. Her blood sugar decreased to around 300. A1c is consistent with an average blood sugar of around 266. She has a mild leukocytosis on CBC. Her blood gas is not acidotic. Her chemistry does not show any acute renal failure. Mild pseudohyponatremia from hyperglycemia. No serum ketones. Her abdominal pain resolved. Her nausea and vomiting resolved. We will have her follow-up with her doctor to adjust her medications at home. Patient was also given IV Zofran. Patient counseled regarding signs and symptoms for which I believe and urgent re-evaluation would be necessary. Patient with good understanding of and agreement to plan and is comfortable going home at this time This document was made in part using voice recognition software. While efforts are made to proofread this document, sound alike and grammatical errors may occur. Departure - Departure Disposition: 01 Home, Self Care Clinical Impression: Hyperglycemia, Dehydration Condition: Good Instructions: ED Hyperglycemia Diabetic, ED Dehydration Follow-Up: Your,doctor Tomorrow [Other] Prescriptions: Ondansetron Odt [Zofran] 4 mg TL Q6H PRN #10 tablet PRN Reason: Nausea / Vomiting Comments: Your prescription was sent to [facility] in [place]. Please follow-up with your doctor for further care. Return if you worsen. Please make sure to contact your doctor tomorrow to discuss adjusting your medications. Your blood sugar was over 500 when you initially arrived, and is now down to around 300. There are no acute findings on your CT scan. You do appear to have small cysts in your liver, you should have a ultrasound performed with your primary care provider for this. IMPRESSION: No visualized acute intra-abdominal or pelvic process. Low-attenuation foci in the medial right hepatic lobe. These likely represent small cysts. However, there are too small to definitively characterize and other etiologies cannot be definitively excluded. It is recommended short interval ultrasound follow-up is recommended. Discharge Date/Time: 11/01/22 22:03
[2022-11-01 17:11] LABS: VBG BASE EXCESS -4.4 mmol/L (-2 - +2); VBG HCO3 19.6 mmol/L (23-28); VBG OXYGEN SATURATION 96.1 % (60-80); VBG PCO2 32.9 mmHg (41-51); VBG PH 7.392 (7.31-7.41); VBG PO2 77.7 mmHg (25-47); VBG TOTAL CO2 20.6 mmol/L (24-29)
[2022-11-01 17:37] LABS: BILIRUBIN,URINE NEGATIVE (NEGATIVE); GLUCOSE, URINE (UA) >=1000 mg/dL (NEGATIVE); KETONES,URINE (UA) NEGATIVE (NEGATIVE); LEUKOCYTE ESTERASE, URINE NEGATIVE (NEGATIVE); NITRITE,URINE NEGATIVE (NEGATIVE); OCCULT BLOOD,URINE NEGATIVE (NEGATIVE); PROTEIN,URINE NEGATIVE (NEGATIVE); UROBILINOGEN,URINE 0.2 (NORMAL) E.U./dL (NORMAL)
[2022-11-01 17:39] LABS: CLARITY,URINE CLEAR (CLEAR)
[2022-11-01 17:56] LABS: ALBUMIN 3.9 g/dL (3.2-5.5); ALBUMIN/GLOBULIN RATIO 1.1 (1.0-2.2); BILIRUBIN,TOTAL 0.8 mg/dL (0.2-1.0); CALCIUM 9.2 mg/dL (8.5-10.3); POTASSIUM 3.5 mmol/L (3.5-5.0); TOTAL PROTEIN 7.6 g/dL (6.7-8.2)
[2022-11-01] MEDS ORDERED: iohexoL-300 100 ML VIAL ONE (18:10)
[2022-11-01] MEDS ORDERED: INSULIN REGULAR HUMAN 100 UNIT/1 ML 10 ML MDV SUBQ STA ×2 (18:16→19:04)
--- NOTE | 2022-11-01 18:55 | CT Report ---
PROCEDURE: ABDOMEN/PELVIS W INDICATIONS: diffuse abd pain, vomiting CONTRAST: 100mL Omni 300 TECHNIQUE: After the administration of IV contrast, 5 mm thick sections acquired from the diaphragms to the symp hysis. 5 mm thick coronal and sagittal reformats were acquired. For radiation dose reduction, the f ollowing was used: automated exposure control, adjustment of mA and/or kV according to patient size. COMPARISON: None. FINDINGS: Image quality: Excellent. ABDOMEN: Lung bases: Lung bases are clear. Heart size is normal. Solid organs: Liver is enlarged with steatosis. The spleen is normal in size. Low-attenuation foci a re present in the posterior medial right hepatic lobe the largest measuring approximately 7 mm. No pr iors are available for comparison. Gallbladder has been removed Biliary system is non dilated. Panc reas enhances normally. No adrenal nodules. Kidneys demonstrate normal size and enhancement, withou t hydronephrosis. Low-attenuation foci are present bilaterally likely suggestive of simple cysts [facility] [place] most are too small to definitively characterize. Peritoneum and bowel: Bowel loops demonstrate normal wall thickness and caliber. No free fluid or a ir. Nodes and vessels: No retroperitoneal or mesenteric adenopathy by size criteria. Aorta and inferior vena cava are normal in size. Miscellaneous: No ventral hernias. PELVIS: Genitourinary: Bladder wall thickness is normal. Miscellaneous: No inguinal hernias or adenopathy. Bones: No suspicious bony lesions. No vertebral body compression fractures. IMPRESSION: No visualized acute intra-abdominal or pelvic process. Low-attenuation foci in the medial right hepatic lobe. These likely represent small cysts. However, t here are too small to definitively characterize and other etiologies cannot be definitively excluded. It is recommended short interval ultrasound follow-up is recommended. Reviewed by: Lizeth Cline MD on 11/01/2022 6:54 PM PST Approved by: Lizeth Cline MD on 11/01/2022 6:54 PM PST Station ID: [id number]
[2022-11-01] MEDS ORDERED: ONDANSETRON 4 MG/2 ML VIAL IVP STA (19:29)
[2022-11-01 20:48] LABS: ESTIMATED AVERAGE GLUCOSE 266 mg/dL (70-100); HEMOGLOBIN A1c% 10.9 % (4.27-6.07)
[2022-11-01] MEDS ORDERED: iohexoL-300 100 ML VIAL IVP ONE (21:16)
[2022-11-01 21:38] VITALS: BP 145/76
[2022-11-01] MEDS ORDERED: ONDANSETRON ODT 4 MG Prepack 2 TL PRN (21:46)
== END 2022-11-01 22:03 | disposition home or self-care (01) ==
LOC: EDUNIT# → ED 16:22
DX: E86.0 Dehydration (principal); Z79.4 Long term (current) use of insulin; E11.65 Type 2 diabetes mellitus with hyperglycemia
CPT/HCPCS: 36415; 74177; 80053; 81003; 82009; 82803; 83036; 83690; 85025; 96361; 96374; 99284; J1815; Q9967; 81001; 87086